=== PATIENT | female | born 1990 | race Caucasian/White ===

== ENCOUNTER 2021-04-26 20:44 | Emergency (ER) | payer BC, SELFPAY ==
[2021-04-26 20:44] VITALS: BP 131/70; PULSE 71; RESP 20; TEMP 36.8; O2SAT 98; BMI 42.0
[2021-04-26 22:16] LABS: Microscopic, Urine URINE MICROSCOPIC (MICROSCOPIC)
[2021-04-26 22:32] LABS: Chloride 100 mmol/L (98-107); Potassium 4.3 mmoL/L (3.5-5.1); Sodium 134 mmol/L (136-145)
[2021-04-26 22:37] LABS: Alanine Aminotransferase 31 U/L (12-78); Alkaline Phosphatase 64 U/L (38-126); Anion Gap 12.3 mEq/L (5-15); Aspartate Amino Transferase 43 U/L (14-36); Bilirubin,Total 0.6 mg/dl (0.2-1.3); Blood Urea Nitrogen 14 mg/dl (7-17); Calcium 8.2 mg/dl (8.4-10.2); Carbon Dioxide 26 mmol/L (22.0-30.0); Creatinine Clearance Estimated 115 mL/min (50-200); Estimated Glomerular Filt Rate 119 ml/min (>60); GFR (African American) 144 ML/MIN (>60); Glucose 87 mg/dl (74-100)
[2021-04-26 22:42] LABS: Albumin Level 4.1 g/dl (3.5-5.0); Albumin/Globulin Ratio 1.4 (1.1-1.8); Globulin 2.9 g/dL (1.3-3.2)
[2021-04-26 22:43] LABS: Basophils # 0.1 K/mm3 (0-0.2); Basophils % 1.9 % (0.1-2.0); Eosinophils # 0.2 K/mm3 (0.0-0.4); Eosinophils % 3.8 % (0.1-12.0); Hematocrit 38.2 % (37.0-47.0); Hemoglobin 12.2 g/dL (12.2-16.2); Lymphocytes # 2.1 K/mm3 (0.7-4.5); Lymphocytes % 35.6 % (10-50); Mean Corpuscular HGB Conc 31.9 g/dL (31.8-35.4); Mean Corpuscular Hemoglobin 29.1 pg (27.0-31.2); Mean Corpuscular Volume 91.1 fl (81-99); Mean Platelet Volume 8.4 fl (7.4-10.4); Monocytes # 0.2 K/mm3 (0.1-1.0); Monocytes % 4.1 % (1.7-9.3); Neutrophils # 3.2 K/mm3 (1.8-7.8); Neutrophils % 54.6 % (37.0-80.0); Platelet Count 234 K/mm3 (142-424); Red Blood Count 4.19 M/mm3 (4.20-5.40); Red Cell Distribution Width 13.6 % (11.5-17.5); White Blood Count 5.9 K/mm3 (4.8-10.8)
[2021-04-26 22:52] LABS: Appearance,Urine CLEAR (Clear); Bilirubin,Urine Negative (Negative); Blood, Urine 1+ (Negative); Color,Urine YELLOW (Yellow); Glucose,Urine (UA) Negative (Negative); Ketones,Urine TRACE (Negative); Leukocyte Esterase,Urine Negative (Negative); Nitrate,Urine Negative (Negative); Protein,Urine Negative (Negative); Specific Gravity, Urine 1.025 (1.005-1.030); Urobilinogen,Urine 0.2 EU/dl (0.2)
[2021-04-26 22:55] LABS: Urine Pregnancy, HCG Qual. Negative (Negative)
[2021-04-26 23:20] LABS: Bacteria,Urine 1+ /lpf; Mucus,Urine 1+ /lpf
--- NOTE | 2021-04-27 00:06 | HMH.EDWEAK ---
ED Disposition Clinical Impression: Weakness Disposition: Home, Self-Care Condition on Discharge: Good Instructions: DI for Muscle Weakness Additional Instructions: fluids and see pcp for follow up Referrals: Lashon Pelletier [Primary Care Provider] - - Critical Care Critical Care Time: No Attestation: On 04/26/21, the high probability of a clinically significant, sudden or life threatening deterioration of the following system(s) required my full and direct attention, intervention and personal management. The time I documented below is in addition to time spent performing reported procedures but includes the following listed in this critical care notation. Medical Decision Making - Medical Records Medical records reviewed: Yes: I reviewed the patient's medical records. - Regulo Inquiry Pt receiving controlled substance: No Vital Signs: 04/26/21 20:44 Temperature 98.2 F Temperature Source Oral Pulse Rate [Apical] 71 Respiratory Rate 20 Blood Pressure [Right Arm] 131/70 Blood Pressure Mean [Right Arm] 90 Blood Pressure Source [Right Arm] Automatic Cuff Blood Pressure Position [Right Arm] Sitting 02 Sat by Pulse Oximetry 98 Oxygen Delivery Method Room Air - Lab Data Lab Results 04/26/21 21:30: Urine Color Yellow, Urine Appearance Clear, Urine pH 6.0, Ur Specific [place] 1.025, Urine Protein Negative, Urine Glucose (UA) Negative, Urine Ketones Trace, Urine Blood 1+, Urine Nitrate Negative, Urine Bilirubin Negative, Urine Urobilinogen 0.2, Ur Leukocyte Esterase Negative, Urine WBC 3-5, Ur Squamous Epith Cells 3-5, Urine Bacteria 1+, Urine Mucus 1+ 04/26/21 21:30: Urine HCG, Qual Negative 04/26/21 21:30: Sodium 134 L, Potassium 4.3, Chloride 100, Carbon Dioxide 26, Anion Gap 12.3, BUN 14, Creatinine 0.60, Estimated Creat Clear 115, Estimated GFR 119, Est GFR ( Amer) 144, Glucose 87, Calcium 8.2 L, Total Bilirubin 0.6, AST 43 H, ALT 31, Alkaline Phosphatase 64, Total Protein 7.0, Albumin 4.1, Globulin 2.9, Albumin/Globulin Ratio 1.4 04/26/21 22:28: WBC 5.9, RBC 4.19 L, Hgb 12.2, Hct 38.2, MCV 91.1, MCH 29.1, MCHC 31.9, RDW 13.6, Plt Count 234, MPV 8.4, Neut % (Auto) 54.6, Lymph % (Auto) 35.6, [place] % (Auto) 4.1, Eos % (Auto) 3.8, Baso % (Auto) 1.9, Neut # (Auto) 3.2, Lymph # (Auto) 2.1, [place] # (Auto) 0.2, Eos # (Auto) 0.2, Baso # (Auto) 0.1 04/27/21 00:00: Magnesium 2.1 Result diagrams: 04/26/21 22:28 04/26/21 21:30 Orders (Tests/Meds): ED MEDICATIONS Generic Name Dose Route Start Last Admin Trade Name Freq PRN Reason Stop Dose Admin Sodium Chloride 1,000 mls @ 999 mls/hr 04/26/21 22:15 04/26/21 22:28 Sod Chlor 0.9% 1000ml Bag IV 04/26/21 23:15 999 mls/hr .Q1H1M AGGIE Administration ORDERS Category Date Time Status Rapid PCR Covid and Flu A/B Stat Lab 04/27/21 00:12 Ordered Medical Decision Narrative: stable exam and labs and will d/c to call surg and pcp for follow up Weakness HPI - General Chief complaint: Weakness Stated complaint: dehydration Time Seen by Provider: 04/27/21 00:06 Mode of Arrival: Ambulatory Source of Information: Patient, Medical Record Limitations: No Limitations Description of Symptoms (Recalled from ER Triage Doc. by RN): Patient states that she had a gastric sleeve surgery on Mar 17 2021 and has since been having issues with nausea. States over the last 5 days she hasn't been able to drink as much as she normally would due to nausea, and has noticed less, more concentrated urine. States that she has been feeling faint today which she feels like is due to her dehydration. Denies being currently nauseaus. - History of Present Illness HPI Narrative: recent gastric surg - wt loss surg and feels crampy and weak - with no diarrhea MD Complaint: generalized weakness Onset (ago): day(s) Duration: intermittent Location: generalized Migration: none Associated symptoms: denies other symptoms - Related Data Home Medications Medication Ins
[2021-04-27 00:28] LABS: Magnesium 2.1 mg/dl (1.6-2.3)
[2021-04-27 00:50] VITALS: BP 130/68; PULSE 70; RESP 20; TEMP 36.7; O2SAT 99
== END 2021-04-27 00:55 | disposition home or self-care (01) ==
PROVIDERS: Emergency Provider Emergency Medicine; PCP Nurse Practitioner Family
DX: E86.0 Dehydration (principal); F17.210 Nicotine dependence, cigarettes, uncomplicated
CPT/HCPCS: 80053; 81001; 81025; 83735; 85025; 96365; 99283

== ENCOUNTER 2024-08-05 19:06 | Emergency (ER) | payer OTHER, SELFPAY ==
[2024-08-05] VITALS (12 sets, daily range): BP systolic 118–136; BP diastolic 68–84; PULSE 74–104; RESP 11–23; TEMP 36.6–37.1; O2SAT 98–100; BMI 28.3
--- NOTE | 2024-08-05 19:07 | ECG_ITS ---
APPROVED REPORT Exam: Resting ECG HR:105 bpm ECG Measurements Heart Rate 105 AXES NH 131 P 57 QRSd 97 QRS 52 QT 350 T 28 QTc 411 Conclusion SINUS TACHYCARDIA No STEMI Electronically signed by : GIORGI LITTLEJOHN, 08/06/2024 00:05:17
--- OUTSIDE RECORDS SUMMARY | 2024-08-05 19:12 | XMS_ITS | Encounter Summary ---
Author Organization [employer] Address [address] [place] [id number] Care Team Providers Care Signals Intelligence Superintendent Name Role Phone Unavailable Primary Care Provider Unavailabl e Encounter Details Date Type Department Care Team (Late st Contact Info) Description 03/17/2021 Transcribed Document [facility] [place] [facility] [place] [address] ProviderCindi MD [address] [place] [address] Social History Tobacco Use Types Packs/Day Years Used Date Smoking Tobacco: Never Assessed Comments Unknown Sex and Gender Information Value Date Recorded Sex Assigned at Not on file Legal Sex Female 7:24 PM CDT Gender Identity Not on file Sexual Orientation Not on file documented as of this encounter Miscellaneous Notes * Cerner Conversion Note - Historical ProviderMD - 03/17/2021 11:15 AM NATIONAL SECRETARY Pain Assessment Entered On: 03/17/2021 19:35 EST Performed On: 03/17/2021 15:40 EST by Jewell Vega RN-PATIENT CARE BEDSIDE NON-EXEMPT Intervention Information: HYDROmorphone Performed by Jewell Vega RN-PATIENT CARE BEDSIDE NON-EXEMPT on 03/17/2021 15:10:00 EST HYDROmorphone,0.5mg IV Push,Right Hand,Pain (Severe 7-10) Pain Assessment Pain Assessment : Follow-up assessment Pain Scale Goal : 4 Pain Improved by Intervention : Yes Jewell Vega RN-PATIENT CARE BEDSIDE NON-EXEMPT - 03/17/2021 19:35 EST documented in this encounter Plan of Treatment Not on file documented as of this encounter Visit Diagnoses Not on filedocumented in this encounter
--- OUTSIDE RECORDS SUMMARY | 2024-08-05 19:12 | XMS_ITS | Encounter Summary ---
Author Organization [employer] Address [address] [place] [id number] Care Team Providers Care Engraver Seals Name Role Phone Unavailable Primary Care Provider Unavailabl e Encounter Details Date Type Department Care Team (Late st Contact Info) Description 03/17/2021 Transcribed Document [facility] Family Medicine [facility] [place] [address] ProviderCindi MD [facility] [place] [address] Social History Tobacco Use Types Packs/Day Years Used Date Smoking Tobacco: Never Assessed Comments Unknown Sex and Gender Information Value Date Recorded Sex Assigned at Not on file Legal Sex Female 7:24 PM CDT Gender Identity Not on file Sexual Orientation Not on file documented as of this encounter Miscellaneous Notes * Cerner Conversion Note - Historical ProviderMD - 03/17/2021 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 Name: KRISTIE MCGHEE/Sex: 1990 Female Med Rec #: [id number] Physician: JAYASHREE RIVERA MD-GEN Financial #: [id number] Pt. Type: I Room/Bed: [facility]/8 Admit/Disch: 03/17/21 04:55:00 - Institution: [facility] IntraOp Case Attendance Entry 1 Entry 2 Entry 3 Case Attendee JAYASHREE RIVERA MD-GEN ZARAK, ALBERTO, MD-GEN SIMPSON, KELSI A, NA Role Performed Surgeon/Proceduralist, Surgeon/Proceduralist, CHILDREN'S AUTHOR/Nurse Certified Diabetes Educator First Second Time In 03/17/21 07:32:00 03/17/21 07:32:00 03/17/21 07:32:00 Time Out 03/17/21 09:11:00 03/17/21 09:11:00 03/17/21 09:11:00 Procedure Gastrectomy Sleeve Gastrectomy Sleeve Gastrectomy Sleeve Laparoscopic, Hernia Laparoscopic, Hernia Laparoscopic, Hernia Repair Diaphragmatic Repair Diaphragmatic Repair Diaphragmatic Laparoscopic Laparoscopic Laparoscopic Other Attendee Superficial Wound Closed By: Last Modified By: NAKITA LIN RN WESSEL, JULIANA, NAKITA STANLEY, MARTÍN 03/17/21 09:11:44 03/17/21 09:11:44 03/17/21 09:11:44 Entry 4 Entry 5 Entry 6 Case Attendee NAKITA LIN, MARTÍN OTHER, ATTENDEE #1 Bryce Bourne Role Performed Pmo Lead, First Pmo Lead, Second Scrub, First Time In 03/17/21 07:32:00 03/17/21 07:32:00 03/17/21 07:32:00 Time Out 03/17/21 09:11:00 03/17/21 09:11:00 03/17/21 09:11:00 Procedure Gastrectomy Sleeve Gastrectomy Sleeve Gastrectomy Sleeve Laparoscopic, Hernia Laparoscopic, Hernia Laparoscopic, Hernia Repair Diaphragmatic Repair Diaphragmatic Repair Diaphragmatic Laparoscopic Laparoscopic Laparoscopic Other Attendee JOSETTE MONROY Superficial Wound Closed By: Last Modified By: NAKITA LIN RN WESSEL, JULIANA, NAKITA STANLEY RN 03/17/21 09:11:44 03/17/21 09:11:44 03/17/21 09:11:44 Entry 7 Entry 8 Entry 9 Case Attendee PAULA SAN, Eamon Baron, REP - Chiara Lawrence RN Wood Cabinetmaker Role Performed Scrub, Second Box Office Clerk, Ancillary Pmo Lead, Second Time In 03/17/21 07:32:00 03/17/21 07:32:00 03/17/21 08:45:00 Time Out 03/17/21 09:11:00 03/17/21 09:11:00 03/17/21 08:58:00 Procedure Gastrectomy Sleeve Gastrectomy Sleeve Gastrectomy Sleeve Laparoscopic, Hernia Laparoscopic, Hernia Laparoscopic, Hernia Repair Diaphragmatic Repair Diaphragmatic Repair Diaphragmatic Laparoscopic Laparoscopic Laparoscopic Other Attendee MARTÍN BREAUX Superficial Wound Closed By: Last Modified By: NAKITA LIN, NAKITA STANLEY, RN NAKITA LIN, MARTÍN 03/17/21 09:11:44 03/17/21 09:11:44 03/17/21 09:11:44 Entry 10 Case Attendee AKUA SINGER, CHILDREN'S AUTHOR-ANS Role Performed CHILDREN'S AUTHOR/Nurse Certified Diabetes Educator Time In 03/17/21 08:53:00 Time Out 03/17/21 09:11:00 Procedure Gastrectomy Sleeve Laparoscopic Other Attendee CHILDREN'S AUTHOR BREAK Superficial Wound Closed By: Last Modified By: NAKITA LIN, MARTÍN 03/17/21 09:12:07 [facility] IntraOp Case Attendance Audit 03/17/21 09:12:07 Admissions Supervisor: CORNELL Modifier: [email or web address] <+> 10 Procedure 03/17/21 09:11:44 Admissions Supervisor: CORNELL Modifier: [email or web address] 1 <+> Time Out 1 <*> Procedure Gastrectomy Sleeve Laparoscopic, Hernia Repair Diaphragmatic Laparoscopic 2 <+> Time Out 2 <*> Procedure Gastrectomy Sleeve Laparoscopic, Hernia Repair Diaphragmatic Laparoscopic 3 <+> Time Out 3 <*> Procedure Gastrectomy Sleeve Laparoscopic, Hernia Repair Diaphragmatic Laparoscopic 4 <+> Time Out 4 <*> Procedure Gastrectomy Sleeve Laparoscopic, Hernia Repair Diaphragmatic Laparoscopic 5 <+> Time Out 5 <*> Procedure Gastrectomy Sleeve Laparoscopic, Hernia Repair Diaphragmatic Laparoscopic 6 <+> Time Out 6 <*> Procedure Gastrectomy Sleeve Laparoscopic, Hernia Repair Diaphragmatic Laparoscopic 7 <+> Time Out 7 <*> Procedure Gastrectomy Sleeve Laparoscopic, Hernia Repair Diaphragmatic Laparoscopic 8 <+> Time Out 8 <*> Procedure Gastrectomy Sleeve Laparoscopic, Hernia Repair Diaphragmatic Laparoscopic 9 <*> Procedure Gastrectomy Sleeve Laparoscopic, Hernia Repair Diaphragmatic Laparoscopic <+> 10 Time Out 03/17/21 09:00:20 Admissions Supervisor: [email or web address] Modifier: [email or web address] <+> 9 Case Attendee <+> 9 Role Performed <+> 9 Time In <+> 9 Time Out <+> 9 Procedure <+> 9 Other Attendee <+> 10 Case Attendee <+> 10 Role Performed <+> 10 Time In <+> 10 Other Attendee 03/17/21 08:13:55 Admissions Supervisor: CORNELL Modifier: [email or web address] 1 <*> Procedure Gastrectomy Sleeve Laparoscopic 2 <+> Time In 2 <*> Procedure Gastrectomy Sleeve Laparoscopic 3 <+> Time In 3 <*> Procedure Gastrectomy Sleeve Laparoscopic 4 <+> Time In 4 <*> Procedure Gastrectomy Sleeve Laparoscopic 5 <+> Time In 5 <*> Procedure Gastrectomy Sleeve Laparoscopic 6 <+> Time In 6 <*> Procedure Gastrectomy Sleeve Laparoscopic 7 <+> Time In 7 <*> Procedure Gastrectomy Sleeve Laparoscopic 8 <+> Time In 8 <*> Procedure Gastrectomy Sleeve Laparoscopic [facility] IntraOp Case Times Entry 1 Patient In Room Time 03/17/21 07:32:00 Out Room Time 03/17/21 09:11:00 Anesthesia Start Time 03/17/21 07:32:00 Stop Time 03/17/21 09:11:00 Anesthesia Ready 03/17/21 07:32:00 Surgery / Procedure Times Start Time 03/17/21 07:52:00 Stop Time 03/17/21 09:00:00 Last Modified By: NAKITA LIN RN 03/17/21 09:11:37 [facility] IntraOp Case Times Audit 03/17/21 09:11:37 Admissions Supervisor: [email or web address] Modifier: [email or web address] <+> 1 Out Room Time <+> 1 Stop Time 03/17/21 09:00:23 Admissions Supervisor: [email or web address] Modifier: [email or web address] <+> 1 Stop Time 03/17/21 07:55:33 Admissions Supervisor: [email or web address] Modifier: [email or web address] <+> 1 Start Time [facility] IntraOp Cautery Entry 1 ESU Identification Cautery Type Monopolar ESU ID Number [id number] ID Type Hospital Number Cautery Settings Cut Setting 1 Coag Setting 30 ESU Grounding Pad Ground Pad Type Adult Grounding Pad Site Left thigh Grounding Pad NAKITA LIN RN Applied By Grounding Pad Site Warm, dry and intact Skin Condition Before Cautery Grounding Pad Site Unchanged Skin Condition After Cautery Last Modified By: NAKITA LIN RN 03/17/21 07:39:07 [facility] IntraOp Communication Entry 1 Communication To Family/Significant other Comment start Communication By NAKITA LIN RN Date and Time 03/17/21 07:54:00 Last Modified By: NAKITA LIN RN 03/17/21 07:55:44 [facility] IntraOp Counts Verification Entry 1 Procedure Gastrectomy Sleeve Laparoscopic, Hernia Repair Diaphragmatic Laparoscopic Count Info Count Type Sponge, Sharps, Instrument, Miscellaneous Counts Verification Baseline/pre-procedure Sequence Count Results Correct, surgeon notified Counts Performed By Count Performed By PAULA SAN, (Scrub) Wood Cabinetmaker Count Performed By NAKITA LIN RN (RN) Last Modified By: NAKITA LIN RN 03/17/21 08:13:56 [facility] IntraOp Counts Verification Audit 03/17/21 08:13:56 Admissions Supervisor: [email or web address] Modifier: [email or web address] 1 <*> Procedure Gastrectomy Sleeve Laparoscopic [facility] IntraOp Counts Final Entry 1 Procedure Gastrectomy Sleeve Laparoscopic, Hernia Repair Diaphragmatic Laparoscopic Final Count Info Count Type Sponge, Sharps, Miscellaneous Counts Verification Skin Closure/end of Sequence procedure Count Results Correct, surgeon notified Counts Performed By Count Performed By Bryce Bourne (Scrub) Count Performed By Chiara Quezada RN (RN) Last Modified By: NAKITA LIN RN 03/17/21 09:00:32 [facility] IntraOp Counts Final Audit 03/17/21 09:00:32 Admissions Supervisor: [email or web address] Modifier: [email or web address] 1 <*> Procedure Gastrectomy Sleeve Laparoscopic, Hernia Repair Diaphragmatic Laparoscopic 1 <+> Count Performed By (Scrub) 1 <*> Count Performed By (RN) NAKITA LIN RN 03/17/21 08:13:58 Admissions Supervisor: [email or web address] Modifier: [email or web address] 1 <*> Procedure Gastrectomy Sleeve Laparoscopic [facility] IntraOp Cultures and Spec Summary Entry 1 Cultrures and Specimens Specimen Ordered: Yes Test(s) Routine/Path-Lab Requested/Final Disposition Last Modified By: NAKITA LIN RN 03/17/21 07:39:58 [facility] IntraOp Delays Entry 1 Delay Reason Other Duration 2 Minute(s) Comment LOCATING RN FOR RN REPORT Last Modified By: NAKITA LIN RN 03/17/21 07:41:00 [facility] IntraOp Departure from OR Entry 1 Integumentary Assessment Integumentary WDL Assessment WDL Transfer/Handoff Transfer to PACU Phase I Handoff Method Bedside/Face to face Post-op Transport Bed (including Via specialty) Patient Transport NAKITA LIN RN, Accompanied by REX ESQUEDA NA Last Modified By: NAKITA LIN RN 03/17/21 07:40:03 [facility] IntraOp Dressing and Packing Entry 1 Type Dressing Location abdomen Wound Dressing Item 2x2's Applied By Bryce Bourne Other Comments 2 X 2 COVADERMS APPLIED TO TROCAR SITES Last Modified By: NAKITA LIN RN 03/17/21 07:40:08 [facility] IntraOp Fire Risk Assessment Entry 1 Fire Info Surgical Site or 0- No Incision Above the Xyphoid Open O2 Source 0- No (Mask or Cannula) Available Ignition 1- Yes (ESU, Laser, Light Source) Fire Risk 1 Assessment Score Fire Score Fire Risk Yes Assessment Complete Fire Risk NAKITA LIN RN Assessment Verified By Fire Risk 03/17/21 07:30:00 Assessment Verified Date/Time Fire Risk Standard Fire Yes Safety Precautions Followed Last Modified By: NAKITA LIN RN 03/17/21 07:40:13 [facility] IntraOp General Case Conditioning Machine Operator 1 Case Information OR OR 03 SJE Case Level 1 Room Verified Yes Wound Class 2 - Clean-Contaminated Specialty Bariatric Anesthesia Type General ASA Class 3 Diagnosis Preop Diagnosis MORBID OBESITY Postop Same As Preop Yes Postop Diagnosis MORBID OBESITY Wound Class Definitions Last Modified By: NAKITA LIN RN 03/17/21 07:41:22 [facility] IntraOp Implant Log Entry 1 Type Implant (Synthetic) Implant Log Implant Type Other Implant REINFORCE STPL SEAMGRD Identification FLEX [id number] Description Implant Quantity 5 Implant Site OPSITE Implant [id number] Identification Lot Number Implant [employer]:Med Prdt Identification Refrigeration Unit Repairer Name: Implant [id number] Identification Catalog Number Implant Has an Yes Expiration Date Implant Expiration 11/13/23 Date Tissue Implant Last Modified By: NAKITA LIN RN 03/17/21 08:34:23 [facility] IntraOp Implant Log Audit 03/17/21 08:34:23 Admissions Supervisor: JOSE [email or web address] Modifier: JOSE [email or web address] 1 <*> Implant Identification Description REINFORCE STPL SEAMGRD FLEX [id number] 1 <*> Implant Quantity 4 [facility] IntraOp Intraoperative Assessment Entry 1 Handoff Method Bedside/Face to face Valid History / Yes Physical in Chart Preoperative Yes Checklist Reviewed/Evaluated Allergies Reviewed Yes Patient is Latex No Sensitive Isolation Not applicable Precautions Noted Level of WDL Consciousness (WDL = Alert, Oriented to Person, Place, and Time) Skin Assessment Yes Verified Present Upon IVs Arrival to OR Last Modified By: NAKITA LIN RN 03/17/21 07:41:55 [facility] IntraOp Intraoperative Equipment Entry 1 Type Equipment Equipment Equipment CO2 Insufflator Intraop Monitoring Antiembolic Devices Antiembolic Devices Sequential compression device, knee high Antiembolic Device Bilateral Location Scopes Photo/Video Documentation Last Modified By: NAKITA LIN RN 03/17/21 07:41:59 [facility] IntraOp Medication Admin Entry 1 Medication/Irrigant Rohith Cocktail 0.8mL Clonidine / 25mL 0.5% Ropivicaine / 24.2mL 1% Lido with Epi - [id number] Route of LOCAL Administration Dose Dose 50 Unit of Measure ml Administered By JAYASHREE RIVERA MD-GEN Procedure Irrigation Last Modified By: NAKITA LIN RN 03/17/21 07:42:03 [facility] IntraOp Patient Positioning Entry 1 Procedure Gastrectomy Sleeve Laparoscopic, Hernia Repair Diaphragmatic Laparoscopic Body Position Supine Left Arm Position Secured on padded arm board Right Arm Position Secured on padded arm board Left Leg Position Uncrossed, parallel Right Leg Position Uncrossed, parallel Feet Uncrossed Yes Pressure Points Yes Checked Positioning Devices Arm Board, Foot Board, Safety Strap, Thighs, Safety Strap, Arm(s) Positioned By NAKITA LIN RN, REX ESQUEDA NA, JAYASHREE RIVERA MD-GEN Position Verified Positioning Yes Verified by Anesthesia Positioning Yes Verified by Surgeon Last Modified By: NAKITA LIN RN 03/17/21 08:13:57 [facility] IntraOp Patient Positioning Audit 03/17/21 08:13:57 Admissions Supervisor: [email or web address] Modifier: [email or web address] 1 <*> Procedure Gastrectomy Sleeve Laparoscopic [facility] IntraOp Sign In Entry 1 Patient, Site, Yes Procedure Identified Surgical Consent Yes Confirmed Relevant Surgical Yes Documents Available Surgical Site N/A Marked by person performing procedure Anesthesia Machine Yes Check Completed Medication Checks Yes Completed Allergies Yes Airway Difficult Yes Airway/Aspiration Risk Difficult Yes Airway/Aspiration Intervention Equipment Available Blood Loss Risk Yes Blood Loss Yes Intervention Equipment Prepared and Ready Blood Identifiers Not applicable Verified Per Policy Hypothermia Risk Yes Warming Measures Yes Taken Last Modified By: NAKITA LIN RN 03/17/21 07:42:13 [facility] Intra Op Sign Out Entry 1 RN Confirmation Surgical Yes Procedure(s) Identified Instrument, Sponge Yes and Sharps Counts Correct/Documented Equipment Problems N/A Documented Specimen Labeled Yes Correctly Urinary Catheter N/A Documented in IView Wound Yes classification reviewed, verified and updated post case in both the General Case Data and Procedure segments Colbert Patient Yes Recovery Concerns Reviewed with Anesthesia Provider, Surgeon and RN Colbert Patient Yes Management Concerns Reviewed with Anesthesia Provider, Surgeon and RN Safety Checklist Yes Elements Complete? RN Sign Out NAKITA LIN RN Signature RN Sign Out 03/17/21 09:11:00 Signature Date/Time Plan of Care Outcome - Fire Risk OUTCOME STATEMENT: Goal met Patient is free from injury related to surgical fire Plan of Care Outcome - Pt Positioning OUTCOME STATEMENT: Goal met Absence of signs and symptoms of positioning injury. Plan of Care Outcome - Skin Prep OUTCOME STATEMENT: Goal met Intraoperative care is consistent with measures to prevent infection Plan of Care Outcome - Xray/Images OUTCOME STATEMENT: Goal met Absence of observable signs or symptoms of radiation injury Plan of Care Outcome - Counts OUTCOME STATEMENT: Goal met Absence of signs and symptoms of injury related to extraneous objects Last Modified By: NAKITA LIN RN 03/17/21 09:11:44 [facility] Intra Op Sign Out Audit 03/17/21 09:11:44 Admissions Supervisor: CORNELL Modifier: [email or web address] <+> 1 RN Sign Out Signature Date/Time [facility] IntraOp Skin Prep Entry 1 Procedure Gastrectomy Sleeve Laparoscopic, Hernia Repair Diaphragmatic Laparoscopic Prescribed Yes Pre-Surgical Prep Completed Prep Area ABDOMEN Intraop Prep Integumentary WDL Assessment WDL Prep Agents Chloraprep Prep by NAKITA LIN RN Hair Removal Methods No hair removal performed Last Modified By: NAKITA LIN RN 03/17/21 08:13:57 [facility] IntraOp Skin Prep Audit 03/17/21 08:13:57 Admissions Supervisor: CORNELL Modifier: [email or web address] 1 <*> Procedure Gastrectomy Sleeve Laparoscopic [facility] IntraOp Surgical Procedures Entry 1 Entry 2 Procedure Gastrectomy Sleeve Hernia Repair Laparoscopic Diaphragmatic Laparoscopic Modifiers Additional LAPAROSCOPIC SLEEVE LAPAROSCOPIC HIATAL Procedure GASTRECTOMY HERNIA REPAIR Description Primary Procedure Yes No Primary Surgeon JAYASHREE RIVERA MD-GEN JAYASHREE RIVERA MD-GEN Start 03/17/21 07:52:00 03/17/21 07:52:00 Stop 03/17/21 09:00:00 03/17/21 09:00:00 Physician States Cecum Reached Anesthesia Type General General Specialty Bariatric General Wound Class 2 - Clean-Contaminated 1 - Clean Last Modified By: NAKITA LIN RN WESSEL, JULIANA, RN 03/17/21 09:11:38 03/17/21 09:11:38 [facility] IntraOp Surgical Procedures Audit 03/17/21 09:11:38 Admissions Supervisor: [email or web address] Modifier: [email or web address] <+> 1 Stop <+> 2 Stop 03/17/21 08:13:50 Admissions Supervisor: [email or web address] Modifier: [email or web address] <+> 1 Start <+> 2 Procedure <+> 2 Primary Procedure <+> 2 Primary Surgeon <+> 2 Specialty <+> 2 Start <+> 2 Wound Class <+> 2 Anesthesia Type <+> 2 Additional Procedure Description [facility] IntraOp Time Out Entry 1 Procedure to be Gastrectomy Sleeve Performed Laparoscopic, Hernia Repair Diaphragmatic Laparoscopic Time Out Time Out Pause Time 03/17/21 07:51:00 All activity Yes suspended (unless life threatening emergency) Team Verbally Correct patient Confirms Information identity, Consent form is present and accurate, Agreement on the procedure to be done, Correct patient position, Relevant images/results properly labeled/appropriately displayed, Confirm antibiotics have been administered, Confirm the skin prep has dried, Confirm prosthesis/implant/devic e is present, Performed in location of procedure after prepped/draped Antibiotic Yes Prophylaxis Administered Or In Progress Within the Last 60 Minutes Beta Eugene N/A Administered Venous Yes Thromboembolism Prophylaxis Required Anticipated Critical Events Surgeon Critical or unexpected steps, Special equipment need, Special instrumentation need Anesthesia Provider Patient specific concerns Nursing Assures Sterility of instruments, Implant Availability Essential Imaging N/A Labeled and Displayed Last Modified By: NAKITA LIN RN 03/17/21 08:13:57 [facility] IntraOp Time Out Audit 03/17/21 08:13:57 Admissions Supervisor: [email or web address] Modifier: CORNELL 1 <*> Procedure to be Performed Gastrectomy Sleeve Laparoscopic 03/17/21 07:55:53 Admissions Supervisor: CORNELL Modifier: CORNELL 1 <+> Time Out Pause Time 1 <*> Procedure to be Performed Gastrectomy Sleeve Laparoscopic Case Comments <None> Finalized By: NAKITA LIN RN Document Signatures Signed By: NAKITA LIN RN 03/17/21 09:12 Electronically signed by [facility]in [facility] Conversion Tube Knitter Cerner at 06/13/2022 12:46 PM CDT documented in this encounter Plan of Treatment Not on file documented as of this encounter Visit Diagnoses Not on filedocumented in this encounter
--- OUTSIDE RECORDS SUMMARY | 2024-08-05 19:12 | XMS_ITS | Encounter Summary ---
Author Organization [employer] Address [address] [place] [address] Care Team Providers Care Manager State Name Role Phone Unavailable Primary Care Provider Unavailabl e Encounter Details Date Type Department Care Team (Late st Contact Info) Description 11/14/2020 Transcribed Document [facility] [place] [address] [place] [address] ProviderCindi MD [address] [place] [address] Social History Tobacco Use Types Packs/Day Years Used Date Smoking Tobacco: Never Assessed Comments Unknown Sex and Gender Information Value Date Recorded Sex Assigned at Not on file Legal Sex Female 7:24 PM CDT Gender Identity Not on file Sexual Orientation Not on file documented as of this encounter Miscellaneous Notes * Cerner Conversion Note - Cindi ProviderMD - 11/14/2020 2:12 PM CDT Patient Education Materials Follows: ESOPHAGOGASTRODUODENOSCOPY Care After Read the instructions outlined below and refer to this sheet over the next few days. These discharge instructions provide you with general information on caring for yourself after you leave the hospital. Your doctor may also give you specific instructions. While your treatment has been planned according to the most current medical practices available, unavoidable complications occasionally occur. If you have any problems or questions after discharge, call your doctor. HOME CARE INSTRUCTIONS: ACTIVITY: ?? You may resume your regular activity tomorrow, but move at a slower pace for the next 24 hours. ?? Take frequent rest periods for the next 24 hours. ?? Walking will help get rid of the air and reduce the bloated feeling in your belly (abdomen). ?? No driving for 24 hours because of the medication (sedation) used during the test. ?? You may shower. ?? Do not sign any important legal documents or operate any machinery for 24 hours (because of the sedation used during the test). NUTRITION: ?? Drink plenty of fluids. ?? You may resume your normal diet or as instructed by your doctor ?? Begin with a light meal and progress to your normal diet. Heavy or fried foods are harder to digest and may make you feel sick to your stomach (nauseated). ?? Avoid alcoholic beverages for 24 hours or as instructed. MEDICATIONS: ?? You may resume your normal medications unless your doctor tells you otherwise. WHAT TO EXPECT TODAY: ?? Some feelings of bloating in the abdomen. ?? Excessive burping today and passage of more gas than usual. ?? A sore throat can be normal. Use throat lozenges or gargle with warm salt water and drink plenty of fluids. FINDING OUT THE RESULTS OF YOUR TEST: ?? Not all test results are available during your visit. If you had biopsies or other tests done during your procedure, you can make an appointment with your doctor to get the results. Sometimes you may be instructed to call the doctor's office for your results. It is important for you to follow up on all of your test results. SEEK IMMEDIATE MEDICAL CARE IF: ?? You cannot eat or drink. ?? You have worsening throat or chest pain. ?? You have dizziness, lightheadedness, or you faint. ?? You have severe nausea or vomiting. ?? You have a fever greater than 101. ?? You have chills. ?? You have severe abdominal pain or discomfort that gets worse throughout the day. ?? You have black, tarry, or bloody stools. Gastroenterology Hiatal Hernia A hiatal hernia occurs when part of the stomach slides above the muscle that separates the abdomen from the chest (diaphragm). A person can be born with a hiatal hernia (congenital), or it may develop over time. In almost all cases of hiatal hernia, only the top part of the stomach pushes through the diaphragm. Many people have a hiatal hernia with no symptoms. The larger the hernia, the more likely it is that you will have symptoms. In some cases, a hiatal hernia allows stomach acid to flow back into the tube that carries food from your mouth to your stomach (esophagus). This may cause heartburn symptoms. Severe heartburn symptoms may mean that you have developed a condition called gastroesophageal reflux disease (GERD). What are the causes? This condition is caused by a weakness in the opening (hiatus) where the esophagus passes through the diaphragm to attach to the upper part of the stomach. A person may be born with a weakness in the hiatus, or a weakness can develop over time. What increases the risk? This condition is more likely to develop in: ??? Older people. Age is a major risk factor for a hiatal hernia, especially if you are over the age of 50. ??? women. ??? People who are overweight. ??? People who have frequent constipation. What are the signs or symptoms? Symptoms of this condition usually develop in the form of GERD symptoms. Symptoms include: ??? Heartburn. ??? Belching. ??? Indigestion. ??? Trouble swallowing. ??? Coughing or wheezing. ??? Sore throat. ??? Hoarseness. ??? Chest pain. ??? Nausea and vomiting. How is this diagnosed? This condition may be diagnosed during testing for GERD. Tests that may be done include: ??? X-rays of your stomach or chest. ??? An upper gastrointestinal (GI) series. This is an X-ray exam of your GI tract that is taken after you swallow a chalky liquid that shows up clearly on the X-ray. ??? Endoscopy. This is a procedure to look into your stomach using a thin, flexible tube that has a tiny camera and light on the end of it. How is this treated? This condition may be treated by: ??? Dietary and lifestyle changes to help reduce GERD symptoms. ??? Medicines. These may include: ? Qsep-elv-sfvzgww antacids. ? Medicines that make your stomach empty more quickly. ? Medicines that block the production of stomach acid (H2 blockers). ? Stronger medicines to reduce stomach acid (proton pump inhibitors). ??? Surgery to repair the hernia, if other treatments are not helping. If you have no symptoms, you may not need treatment. Follow these instructions at home: Lifestyle and activity ??? Do not use any products that contain nicotine or tobacco, such as cigarettes and e-cigarettes. If you need help quitting, ask your health care provider. ??? Try to achieve and maintain a healthy body weight. ??? Avoid putting pressure on your abdomen. Anything that puts pressure on your abdomen increases the amount of acid that may be pushed up into your esophagus. ? Avoid bending over, especially after eating. ? Raise the head of your bed by putting blocks under the legs. This keeps your head and esophagus higher than your stomach. ? Do not wear tight clothing around your chest or stomach. ? Try not to strain when having a bowel movement, when urinating, or when lifting heavy objects. Eating and drinking ??? Avoid foods that can worsen GERD symptoms. These may include: ? Fatty foods, like fried foods. ? [place] fruits, like oranges or lemon. ? Other foods and drinks that contain acid, like orange juice or tomatoes. ? Spicy food. ? Chocolate. ??? Eat frequent small meals instead of three large meals a day. This helps prevent your stomach from getting too full. ? Eat slowly. ? Do not lie down right after eating. ? Do not eat 1?2 hours before bed. ??? Do not drink beverages with caffeine. These include cola, coffee, cocoa, and tea. ??? Do not drink alcohol. General instructions ??? Take mkxw-hpw-dwcrrrc and prescription medicines only as told by your health care provider. ??? Keep all follow-up visits as told by your health care provider. This is important. Contact a health care provider if: ??? Your symptoms are not controlled with medicines or lifestyle changes. ??? You are having trouble swallowing. ??? You have coughing or wheezing that will not go away. Get help right away if: ??? Your pain is getting worse. ??? Your pain spreads to your arms, neck, jaw, teeth, or back. ??? You have shortness of breath. ??? You sweat for no reason. ??? You feel sick to your stomach (nauseous) or you vomit. ??? You vomit blood. ??? You have bright red blood in your stools. ??? You have black, tarry stools. This information is not intended to replace advice given to you by your health care provider. Make sure you discuss any questions you have with your health care provider. Document Revised: 01/24/2018 Document Reviewed: 09/16/2017 [employer] Patient Education ? 2020 [employer] Pharmacology Monitored Anesthesia Care, Care After This sheet gives you information about how to care for yourself after your procedure. Your health care provider may also give you more specific instructions. If you have problems or questions, contact your health care provider. What can I expect after the procedure? After the procedure, it is common to have: ??? Tiredness. ??? Forgetfulness about what happened after the procedure. ??? Impaired judgment for important decisions. ??? Nausea or vomiting. ??? Some difficulty with balance. Follow these instructions at home: For at least 24 hours after the procedure: ??? Have a responsible adult stay with you. It is important to have someone help care for you until you are awake and alert. ??? Rest as needed. ??? Do not participate in activities in which you could fall or become injured. ??? Do not drive. ??? Do not use machinery. ??? Do not drink alcohol. ??? Do not take sleeping pills or medicines that cause drowsiness. ??? Do not make important decisions or sign legal documents. ??? Do not take care of children on your own. Eating and drinking ??? Follow the diet that is recommended by your health care provider. ??? Drink enough fluid to keep your urine pale yellow. ??? If you vomit: ? Drink water, juice, or soup when you can drink without vomiting. ? Make sure you have little or no nausea before eating solid foods. General instructions ??? Take fwlj-nai-ycjmhbx and prescription medicines only as told by your health care provider. ??? If you have sleep apnea, surgery and certain medicines can increase your risk for breathing problems. Follow instructions from your health care provider about wearing your sleep device: ? Anytime you are sleeping, including during daytime naps. ? While taking prescription pain medicines, sleeping medicines, or medicines that make you drowsy. ??? Avoid smoking. ??? Keep all follow-up visits as told by your health care provider. This is important. Contact a health care provider if: ??? You keep feeling nauseous or you keep vomiting. ??? You feel light-headed. ??? You are still sleepy or having trouble with balance after 24 hours. ??? You develop a rash. ??? You have a fever. ??? You have redness or swelling around the IV site. Get help right away if: ??? You have trouble breathing. ??? You have new-onset confusion at home. Summary ??? For several hours after your procedure, you may feel tired. You may also be forgetful and have poor judgment. ??? Have a responsible adult stay with you for at least 24 hours or until you are awake and alert. ??? Rest as told. Do not drive or operate machinery. Do not drink alcohol or take sleeping pills. ??? Get help right away if you have trouble breathing, or if you suddenly become confused. This information is not intended to replace advice given to you by your health care provider. Make sure you discuss any questions you have with your health care provider. Document Revised: 01/14/2020 Document Reviewed: 01/14/2020 [employer] Patient Education ? 2020 [employer]. documented in this encounter Plan of Treatment Not on file documented as of this encounter Visit Diagnoses Not on filedocumented in this encounter
--- OUTSIDE RECORDS SUMMARY | 2024-08-05 19:12 | XMS_ITS | Encounter Summary ---
Author Organization [employer] Address [address] [place] [address] Care Team Providers Care Mud Analysis Well Logging Operator Name Role Phone Unavailable Primary Care Provider Unavailabl e Encounter Details Date Type Department Care Team (Late st Contact Info) Description 03/18/2021 Transcribed Document [facility] [place] [facility] [place] [address] ProviderCindi MD [address] [place] [address] Social History Tobacco Use Types Packs/Day Years Used Date Smoking Tobacco: Never Assessed Comments Unknown Sex and Gender Information Value Date Recorded Sex Assigned at Not on file Legal Sex Female 7:24 PM CDT Gender Identity Not on file Sexual Orientation Not on file documented as of this encounter Miscellaneous Notes * Cerner Conversion Note - Cindi ProviderMD - 03/18/2021 8:56 AM NEONATAL CRITICAL CARE NURSE Initial Discharge Planning Entered On: 03/18/2021 8:58 EST Performed On: 03/18/2021 8:56 EST by Zahraa Lee Rn Initial Assessment I Previously Documented Living Environment : No qualifying data available. Living Situation : Home Patient Lives With : Adult Child/Children, Spouse Is the Patient a Caregiver at Home? : No Emergency Contact #1 : Garry Emergency Contact #1 Emergency Contact #1 Relationship : spouse Emergency Contact #2 : . Emergency Contact #2 Phone Number : .. Emergency Contact #2 Relationship : . Identified Medical Decision Maker : self Enter Doctors Name : Lashon Pelletier Does Patient have PCP Listed? : Yes Legal Guardian : No Is Guardianship Needed : No Zahraa Lee Rn - 03/18/2021 8:56 EST Initial Assessment II Sensory and Motor Deficits : None Current Home Treatments and Equipment : None Services and Community Resources : Other: NA Does the Patient have a Floor to SNF Benefit? : No Zahraa Lee Rn - 03/18/2021 8:56 EST Discharge Needs I Anticipated Discharge Date : 03/20/2021 EST Anticipated Discharge To, CM : Home with family care Current Home Treatment/Equipment : Current Home Treatment/Equipment No qualifying data available. Post Acute/Home Treatments : None Documentation Status Complete : Yes Zahraa Lee Rn - 03/18/2021 8:56 EST Discharge Needs II Professional Skilled Services : Professional Skilled Services No qualifying data available. Services and Community Resources : Other: NA Needs Assistance with Transportation : No Discharge Options Discussed with Patient : Other: CHART Patient Discharge Goal : Home Zahraa Lee Rn - 03/18/2021 8:56 EST Narrative Note Narrative Note : 30yo female patient admitted s/p gastric procedure., iADLs. lives with spouse who will transport at dc. no identified needs. INP LOW ELOS 2 days PLAN; patient will dc home in 1 day with no needs. CM will follow Zahraa Lee Rn - 03/18/2021 9:14 EST documented in this encounter Plan of Treatment Not on file documented as of this encounter Visit Diagnoses Not on filedocumented in this encounter
--- OUTSIDE RECORDS SUMMARY | 2024-08-05 19:12 | XMS_ITS | Encounter Summary ---
Author Organization [employer] Address [address] [place] [address] Care Team Providers Care Cream Ripener Name Role Phone Unavailable Primary Care Provider Unavailabl e Encounter Details Date Type Department Care Team (Late st Contact Info) Description 03/18/2021 Transcribed Document [facility] [place] [address] [place] [address] ProviderCindi MD [address] [place] [address] Social History Tobacco Use Types Packs/Day Years Used Date Smoking Tobacco: Never Assessed Comments Unknown Sex and Gender Information Value Date Recorded Sex Assigned at Not on file Legal Sex Female 7:24 PM CDT Gender Identity Not on file Sexual Orientation Not on file documented as of this encounter Miscellaneous Notes * Cerner Conversion Note - Historical ProviderMD - 03/18/2021 12:00 PM PATTERN FILER Pain Assessment Entered On: 03/18/2021 13:16 EST Performed On: 03/18/2021 12:42 EST by Jewell Vega RN-PATIENT CARE BEDSIDE NON-EXEMPT Intervention Information: ketorolac Performed by Jewell Vega RN-PATIENT CARE BEDSIDE NON-EXEMPT on 03/18/2021 12:12:00 EST ketorolac,15mg IV Push,Right Antecubit [place] Pain Assessment Pain Assessment : Follow-up assessment Pain Scale Goal : 4 Pain Radiation : No Pain Improved by Intervention : Yes Jewell Vega RN-PATIENT CARE BEDSIDE NON-EXEMPT - 03/18/2021 13:15 EST documented in this encounter Plan of Treatment Not on file documented as of this encounter Visit Diagnoses Not on filedocumented in this encounter
--- OUTSIDE RECORDS SUMMARY | 2024-08-05 19:12 | XMS_ITS | Encounter Summary ---
Author Organization [employer] Address [address] [place] [address] Care Team Providers Care Dye Blender Name Role Phone Unavailable Primary Care Provider Unavailabl e Encounter Details Date Type Department Care Team (Late st Contact Info) Description 03/19/2021 Transcribed Document [facility] [place] [address] [place] [address] ProviderCindi MD [address] [place] [address] Social History Tobacco Use Types Packs/Day Years Used Date Smoking Tobacco: Never Assessed Comments Unknown Sex and Gender Information Value Date Recorded Sex Assigned at Not on file Legal Sex Female 7:24 PM CDT Gender Identity Not on file Sexual Orientation Not on file documented as of this encounter Miscellaneous Notes * Cerner Conversion Note - Historical ProviderMD - 03/19/2021 5:00 AM INFORMATICS NURSE Chart Check - Review Order Profile Entered On: 03/19/2021 5:03 EST Performed On: 03/19/2021 5:00 EST by Risa Iqbal RN Chart Check Powerplans Initiated/Discontinued as Appropriate : Yes All Active Orders Reviewed : Yes Risa Iqbal RN - 03/19/2021 5:03 EST documented in this encounter Plan of Treatment Not on file documented as of this encounter Visit Diagnoses Not on filedocumented in this encounter
--- OUTSIDE RECORDS SUMMARY | 2024-08-05 19:12 | XMS_ITS | Encounter Summary ---
Author Organization [employer] Address [address] [place] [address] Care Team Providers Care Library Technology Instructor Name Role Phone Unavailable Primary Care Provider Unavailabl e Encounter Details Date Type Department Care Team (Late st Contact Info) Description 03/17/2021 Transcribed Document [facility] [place] [facility] [place] [address] ProviderCindi MD [address] [place] [address] Social History Tobacco Use Types Packs/Day Years Used Date Smoking Tobacco: Never Assessed Comments Unknown Sex and Gender Information Value Date Recorded Sex Assigned at Not on file Legal Sex Female 7:24 PM CDT Gender Identity Not on file Sexual Orientation Not on file documented as of this encounter Miscellaneous Notes * Cerner Conversion Note - Cindi ProviderMD - 03/17/2021 9:22 AM MEDICAL REIMBURSEMENT SPECIALIST Patient: SHERI MCGHEE Age: 30 Years Sex: Female : 1990 *Operation 1. Laparoscopic Hiatal Hernia Repair 2. Laparoscopic Sleeve Gastrectomy Indication for Surgery The patient is a 30 Years-old Female who presents with longstanding history of morbid obesity and associated comorbidities, and has tried multiple conservative therapies for losing weight that have all been unsuccessful. After discussing risks and benefits of bariatric surgery and reviewing the patient's medical history, the patient elected to proceed with laparoscopic sleeve gastrectomy with hiatal hernia repair. *Preoperative Diagnosis 1. Morbid obesity due to excess calories 2. GERD 3. Hiatal hernia 4. Anxiety 5. Joint pain *Postoperative Diagnosis 1. Morbid obesity due to excess calories 2. GERD 3. Hiatal hernia 4. Anxiety 5. Joint pain *Surgeon(s) Primary Surgeon JAYASHREE RIVERA MD-GEN (Surgeon/Proceduralist, First) assistant operations manager: Oracio Ibarra MD *Procedure Narrative The patient was brought to the operating room, and placed on the operating table in supine position. General endotracheal anesthesia was induced. The abdomen was prepped and draped in the usual sterile fashion. A time-out was completed verifying correct patient, procedure prior to beginning this procedure. The abdominal cavity was accessed with a Veress needle at Zendejas's point, and insufflated up to 17 mmHg. The patient tolerated insufflation well. Then a supraumbilical 5 mm incision was made, and a 5mm Optiview trocar was used to enter the abdomen under direct laparoscopic vision. The laparoscope was inserted and the abdomen inspected. No injuries from initial trocar placement were noted. At this point, the Veress needle was removed. A 5 mm incision was made in the subxiphoid area to place the Jesús liver retractor. The left lobe of the liver was retracted. Additional trocars were then inserted in the following locations: 5 mm left subcostal trocar on the anterior axillary line, 5 mm left subcostal trocar at the midclavicular line, right upper quadrant 5 mm trocar at the anterior axillary line, and a 15 mm trocar at the midclavicular line. A small-moderate size hiatal hernia was identified. We proceed to dissect the hiatus circumferentially reducing the fundus of the stomach into the abdominal cavity. The greater omentum was dissected from the greater curvature of the stomach, using the LigaSure. This was dissected all the way to the fundus, releasing all adhesions, and visualizing the left katrina. Hemostasis was checked and ensured with the short gastric vessels. The 42 Iranian bougie was then placed down the esophagus into the stomach under direct visualization. After the bougie was in place in the antrum, the stomach was stapled in a parallel manner to the greater curve, creating a sleeve gastrectomy. Green loads of the Hayes stapler were used with seam guard reinforcement from the antrum to the fundus, taking care not to narrow the incisura. The bougie was then removed, and the sleeve appeared uniform, with no corkscrew or narrowing. Then a posterior cruroplasty was performed with running non-absorbable V-loc suture. The staple line was then reinforced with a running reabsorbable Stratafix 2-0 from the proximal to the distal staple line, reattaching the greater omentum to the xochitl-greater curvature. The staple line was inspected, and full hemostasis was achieved. The Jesús liver retractor was removed. The 15 mm trocar site was dilated, and the Endo-Catch bag placed within the abdomen to retrieve the stomach specimen. The specimen was then passed off the field for pathology. The fascia of the 15 mm trocar site was closed in a fpszmy-rl-yncci fashion with #1 Vicryl using a Ryan Louis suture passer under direct laparoscopic vision. Pneumoperitoneum was released, and the remaining trocars were removed. The 15 mm trocar site where the stomach was retrieved was irrigated with sterile saline. All incisions were closed with skin maisha, and sterile dressings were placed. The patient tolerated the procedure well and was taken to the postanesthesia care unit in stable condition. All instrument and sponge counts were correct at the end of the procedure. Drains/Packs Used none Anesthesia general endotracheal *Estimated Blood Loss 5cc Urine Output no ortega *Findings moderate hiatal hernia *Specimen(s) greater curvature of stomach Complications none Date of Service Date/Time of Service SN - Proc - Start Time: 03/17/21 07:52:00 (03/17/21 08:13:50) SN - Proc - Start Time: 03/17/21 07:52:00 (03/17/21 08:13:50) documented in this encounter Plan of Treatment Not on file documented as of this encounter Visit Diagnoses Not on filedocumented in this encounter
--- OUTSIDE RECORDS SUMMARY | 2024-08-05 19:12 | XMS_ITS | Encounter Summary ---
Author Organization [employer] Address [address] [place] [address] Care Team Providers Care Credit Reference Clerk Name Role Phone Unavailable Primary Care Provider Unavailabl e Encounter Details Date Type Department Care Team (Late st Contact Info) Description 03/17/2021 Transcribed Document [facility] [place] Medicine [facility] [place] [address] ProviderCindi MD [address] [place] [address] Social History Tobacco Use Types [...] - Historical ProviderMD - 03/17/2021 7:52 AM SALESPERSON [employer] [facility] OR PACU Summary Primary Physician: JAYASHREE IRVERA MD-GEN Finalized Date/Time: 03/17/21 10:37:17 Pt. Name: SHERI MCGHEE/Sex: 1990 Female Med Rec #: [id number] Physician: JAYASHREE RIVERA MD-GEN Financial #: [id number] Pt. Type: I Room/Bed: 8/1 Admit/Disch: 03/17/21 04:55:00 - Institution: [facility] PACU Case Times Entry 1 In PACU I 03/17/21 09:14:00 Ready for PACU 03/17/21 09:50:00 Discharge Discharge from PACU 03/17/21 10:21:00 I Last Modified By: Mallory Miles RN 03/17/21 09:54:27 [facility] OR PACU Case Times Audit 03/17/21 10:20:06 Associate Professor Of Music: JASON Modifier: SUSANBREWER <+> 1 Discharge from PACU I 03/17/21 09:54:27 Associate Professor Of Music: JASON Modifier: SUSANBREWER <+> 1 Ready for PACU Discharge [facility] OR PACU Acuity Entry 1 Start Time 03/17/21 09:50:00 Stop Time 03/17/21 10:21:00 Acuity Level [facility] PACU Acuity I Last Modified By: Mallory Miles RN 03/17/21 09:54:20 [facility] OR PACU Acuity Audit 03/17/21 10:20:35 Associate Professor Of Music: JASON Modifier: SUSFER 1 <*> Stop Time 03/17/21 10:20:00 03/17/21 10:20:21 Associate Professor Of Music: JASON Modifier: SUSANBREWER <+> 1 Start Time <+> 1 Stop Time Finalized By: Mallory Miles, RN Document Signatures Signed By: Mallory Miles RN 03/17/21 10:37 Electronically signed by Navin [facility] Conversion Animal Rescuer Cerner at 06/13/2022 1:01 PM CDT documented in this encounter Plan of Treatment Not on file documented as of this encounter Visit Diagnoses Not on filedocumented in this encounter
--- OUTSIDE RECORDS SUMMARY | 2024-08-05 19:12 | XMS_ITS | Encounter Summary ---
Author Organization [employer] Address [address] [place] [address] Care Team Providers Care Soda Column Operator Name Role Phone Unavailable Primary Care Provider Unavailabl e Encounter Details Date Type Department Care Team (Late st Contact Info) Description 03/18/2021 Transcribed Document [facility] [place] Family Medicine [address] [place] [address] ProviderCindi MD [address] [place], [place] [id number] Social History Tobacco Use Types Packs/Day Years Used Date Smoking Tobacco: Never Assessed Comments Unknown Sex and Gender Information Value Date Recorded Sex Assigned at Not on file Legal Sex Female 7:24 PM CDT Gender Identity Not on file Sexual Orientation Not on file documented as of this encounter Miscellaneous Notes * Cerner Conversion Note - Historical ProviderMD - 03/18/2021 6:00 AM VENDING MACHINE HOST/HOSTESS Pain Assessment Entered On: 03/18/2021 8:58 EST Performed On: 03/18/2021 7:05 EST by Jewell Vega RN-PATIENT CARE BEDSIDE NON-EXEMPT Intervention Information: ketorolac Performed by Simona Arias RN on 03/18/2021 06:35:00 EST ketorolac,15mg IV Push,Peripheral Line 1 Pain Assessment Pain Assessment : Follow-up assessment Pain Scale Goal : 4 Pain Improved by Intervention : Yes Jewell Vega RN-PATIENT CARE BEDSIDE NON-EXEMPT - 03/18/2021 8:58 EST documented in this encounter Plan of Treatment Not on file documented as of this encounter Visit Diagnoses Not on filedocumented in this encounter
--- OUTSIDE RECORDS SUMMARY | 2024-08-05 19:12 | XMS_ITS | Encounter Summary ---
Author Organization [employer] Address [address] [place] [address] Care Team Providers Care Piping Drafter Name Role Phone Unavailable Primary Care Provider Unavailabl e Encounter Details Date Type Department Care Team (Late st Contact Info) Description 11/14/2020 Transcribed Document [facility] [place] Family Medicine [address] [place] [address] ProviderCindi MD [address] [place] [address] Social History Tobacco Use Types Packs/Day Years Used Date Smoking Tobacco: Never Assessed Comments Unknown Sex and Gender Information Value Date Recorded Sex Assigned at Not on file Legal Sex Female 7:24 PM CDT Gender Identity Not on file Sexual Orientation Not on file documented as of this encounter Miscellaneous Notes * Cerner Conversion Note - Historical ProviderMD - 11/14/2020 1:00 PM CDT [facility] PreOp Summary Primary Physician: JAYASHREE RIVERA MD Finalized Date/Time: 11/14/20 13:15:53 Pt. Name: SHERI MCGHEE/Sex: 1990 Female Med Rec #: [id number] Physician: JAYASHREE RIVERA MD Financial #: [id number] Pt. Type: E Room/Bed: /19 Admit/Disch: 11/14/20 11:56:00 - Institution: [facility] PreOp Case Times Entry 1 In Preop 11/14/20 12:50:00 Ready for Holding n/a Room Patient Ready for 11/14/20 13:15:00 Surgery Patient Out of Preop 11/14/20 13:15:00 Patient Out of n/a Holding Room Finalized By: Walker, Cheyenne M, Rn Document Signatures Signed By: Cheyenne Walker Rn 11/14/20 13:15 documented in this encounter Plan of Treatment Not on file documented as of this encounter Visit Diagnoses Not on filedocumented in this encounter
--- OUTSIDE RECORDS SUMMARY | 2024-08-05 19:12 | XMS_ITS | Encounter Summary ---
Author Organization [employer] Address [address] [place] [address] Care Team Providers Care Otr Flatbed Company Truck Driver Name Role Phone Unavailable Primary Care Provider Unavailabl e Encounter Details Date Type Department Care Team (Late st Contact Info) Description 03/19/2021 Transcribed Document [facility] [place] [facility] [place] [address] [place] [address] ProviderCindi MD [address] [place] [address] Social History Tobacco Use Types Packs/Day Years Used Date Smoking Tobacco: Never Assessed Comments Unknown Sex and Gender Information Value Date Recorded Sex Assigned at Not on file Legal Sex Female 7:24 PM CDT Gender Identity Not on file Sexual Orientation Not on file documented as of this encounter Miscellaneous Notes * Cerner Conversion Note - Historical ProviderMD - 03/19/2021 9:38 AM PUBLIC TRANSPORTATION INSPECTOR Patient: SHERI MCGHEE Age: 30 Years Sex: Female : 1990 Subjective Stayed overnight due to nausea and some dry heaves with drinking. Now resolved after taking off scopalamine patch- says her aunt had a similar reaction to scop patch. No n/v. Tolerating clears. Wants to go home. Pain controlled. Intake & Output Intake & Output Totals Last 24 Hours (7a-7a) Intake (34 Events) Continuous Infusions (3600 mL) Medications (2 mL) Oral Intake (1060 mL) Output (7 Events) Roque Catheter (600 mL) Urine Voided (Volume) (2125 mL) Input Total: 4662 mL Output Total: 2725 mL Balance: 1937 mL Vital Signs T: 37.1 ??C TMIN: 36.6 ??C TMAX: 37.1 ??C HR: 54(Monitored) RR: 18 BP: 128/83 SpO2: 98% Physical Exam Gen: NAD, on RA Resp: Nonlabored respirations CV: Normal peripheral perfusion Abd: soft, morbidly obese, ATTP, dressings c/d/i VTE Risk Total Score VTE Prophylaxis - Surgical Enoxaparin 40 mg, SubCutaneous, Inj, F10QVko, Routine, Start 03/18/21 6:30:00 EST, 03/17/21 11:15:00 EST (JAYASHREE RIVERA) Sequential Compression Device Start: 03/17/21 10:45:00 EST, Bilateral, Length: Knee High, Remove when ambulating, Continuous Order (JAYASHREE RIVERA) Sequential Compression Device Start: 03/17/21 10:45:00 EST, Bilateral, Length: Knee High, Replace when in bed, Continuous Order (JAYASHREE RIVERA) Assessment/Plan POD2 s/p sleeve gastrectomy- doing fairly well. Some nausea and dysphagia with drinking yesterday likely due to hiatal hernia repair- now resolved. - Continue pain control with oral meds - Encourage incentive spirometry and ambulation - Bariatric clears as tolerated. - D/c home today - f/u in bariatric clinic next week 1. Morbid obesity due to excess calories E66.01, Morbid (severe) obesity due to excess calories E66.01, Morbid (severe) obesity due to excess calories E66.01 Medications Inpatient Benadryl, 12.5 mg= 0.25 mL, IV Push, Q6H, PRN Dilaudid, 0.5 mg= 0.5 mL, IV Push, Q3H, PRN FLUoxetine, 20 mg= 1 Cap, Oral, At Bedtime hydrALAZINE, 10 mg= 0.5 mL, IV Push, Q6H, PRN Levsin SL, 0.125 mg= 1 Tab, SubLINgual, Q6H, PRN Lovenox, 40 mg= 0.4 mL, SubCutaneous, [id number] Mylicon, 80 mg= 1 Tab, Oral, Q4H, PRN NaCl 0.9% bolus, 500 mL, IV Piggyback, 1-Time, PRN [place] 7.5 mg-325 mg oral tablet, 2 Tab, Oral, Q4H, PRN [place] 7.5 mg-325 mg oral tablet, 1 Tab, Oral, Q4H, PRN Phenergan, 12.5 mg= 0.5 mL, IV Push, Q6H, PRN Protonix, 40 mg, IV Push, Daily ropivacaine 0.5% injectable solution 25 mL + EPINEPHrine-lidocaine 1:100,000-1% injectable solution Sodium Chloride 0.45% intravenous solution 1,000 mL, 1000 mL, IntraVENous Toradol, 15 mg= 0.5 mL, IV Push, Q6H Zofran, 4 mg= 2 mL, IV Push, Q4H, PRN Home FLUoxetine, 20 mg, Oral, At Bedtime oxyCODONE 5 mg oral tablet, 5 mg= 1 Tab, Oral, Q6H, PRN PriLOSEC 20 mg oral delayed release capsule, 20 mg= 1 Cap, Oral, Daily, 2 refills Zofran 4 mg oral tablet, 4 mg= 1 Tab, Oral, Q8H, PRN, 1 refills ZyrTEC 10 mg oral tablet, 10 mg, Oral, Daily Routine Labs - Last 24 Hours MAR 19 08:00 141 109 8 / 80 3.7 25 0.62 \ Anion Gap: 11 Calcium Level: 8.3 mg/dL Low Magnesium Level: 2.1 mg/dL Imaging Results (Last 24 Hours) No Radiology Results Found Problem List/Past Medical History Ongoing At risk for sleep apnea Migraines Seasonal allergies Historical No qualifying data Procedure/Surgical History Laparoscopic sleeve gastrectomy (03/17/2021), EGD - Esophagogastroduodenoscopy. Allergies cefdinir (Rash) documented in this encounter Plan of Treatment Not on file documented as of this encounter Visit Diagnoses Not on filedocumented in this encounter
--- OUTSIDE RECORDS SUMMARY | 2024-08-05 19:12 | XMS_ITS | Encounter Summary ---
Author Organization [employer] Address [address] [place] [address] Care Team Providers Care Repairer General Name Role Phone Unavailable Primary Care Provider Unavailabl e Encounter Details Date Type Department Care Team (Late st Contact Info) Description 03/23/2021 Transcribed Document [facility] [place] [facility] [place] [address] ProviderCindi MD [address] [place] [address] Social History Tobacco Use Types Packs/Day Years Used Date Smoking Tobacco: Never Assessed Comments Unknown Sex and Gender Information Value Date Recorded Sex Assigned at Not on file Legal Sex Female 7:24 PM CDT Gender Identity Not on file Sexual Orientation Not on file documented as of this encounter Miscellaneous Notes * Cerner Conversion Note - Cindi ProviderMD - 03/23/2021 10:01 AM PUBLIC HEALTH TRAINING ASSISTANT Outpatient Visit History Entered On: 03/23/2021 10:03 EST Performed On: 03/23/2021 10:01 EST by ADRIAN FLORES RN Vital Measurements Temperature Source : Temporal artery scanning Temperature, Fahrenheit : 97.0 Deg F Clinical Temperature, C : 36.1 Deg C Pulse Method : Pulse Oximetry Peripheral Pulse Rate : 73 bpm Pulse Rhythm : Regular Respiratory Rate : 17 Breaths/Min Blood Pressure Location : Arm, left lower Blood Pressure Source : Non-Invasive BP Device Blood Pressure Position : Sitting Systolic Blood Pressure : 140 mmHg Diastolic Blood Pressure : 86 mmHg Oxygen Saturation : 99 % Oxygen Therapy Mode : Room air ADRIAN FLORES RN - 03/23/2021 10:01 EST Height and Weight, Clinical Dosing Height Source : Stated Height Entry Format : [place]y Height, Feet : 5 ft(Converted to: 152 cm, 60 Inch) Height, Inches : 9 Inch(Converted to: 0 ft 9 Inch, 22.86 cm) Clinical Height : 175.26 cm Weight Source : Standing scale Weight Entry Format : [place] Clinical [facility] Weight : 115.45 kg Weight, Pounds : 254 lb Body Surface Area (BSA) : 2.29 m2 Body Mass Index : 37.6 kg/m2 (HI) Lissie Body Weight : 66 kg ADRIAN FLORES RN - 03/23/2021 10:01 EST Quick Look Assessment Level of Consciousness : Alert, Awake Affect/Behavior : Appropriate, Calm, Cooperative Orientation : Oriented x 4 Skin Temperature : Warm Skin Description : Normal for ethnicity ADRIAN FLORES RN - 03/23/2021 10:01 EST Health Histories Smoking Status : Never (less than 100 in lifetime; none in last 30 days) Smokeless Tobacco Status : Never ADRIAN FLORES RN - 03/23/2021 10:01 EST Social History (As Of: 03/23/2021 10:03:55 EST) Tobacco: Never (less than 100 in lifetime) Smoking Status. Never Smokeless Tobacco Status. (Last Updated: 02/27/2021 09:10:18 EST by Cheyenne Walker Rn) Alcohol: Alcohol Use History No. Alcohol Use Frequency Socially. (Last Updated: 02/27/2021 09:10:18 EST by Cheyenne Walker Rn) Substance Abuse: Drug Use Hx: No. (Last Updated: 02/27/2021 09:10:18 EST by Cheyenne Walker Rn) Infectious Disease History Does patient have symptoms of COVID-19? : No Has the Patient Been Tested for COVID-19 in the last 14 days? : Yes, Patient stated results Negative Where and When was COVID19 testing completed? : 03/14/2021 prior to procedure Does the Patient state known exposure to a COVID-19 positive case in the last 14 days? : No Patient Vaccinated for COVID-19 : Fully vaccinated ADRIAN FLORES RN - 03/23/2021 10:01 EST Infectious Disease Risk Screening Grid Cough < 2 wks of unknown origin : NO Cough > 2 weeks : NO Blood in Sputum : NO Fever or self-reported Fever : NO Rash of unknown origin : NO Headache : NO Stiff neck : NO Night Sweats : NO Unexplained Weight Loss : NO Diarrhea (3 episode per day) : NO FLORES, ADRIAN, RN - 03/23/2021 10:01 EST Physical contact outside [place] in the last 30 days : No Hospitalized in Foreign Country : No Infectious Disease History : Influenza, Meningitis, Other: Covid 02/2020 INF Disease TB Screening Calc : 0 INF Disease Recent Travel Calc : 0 ADRIAN FLORES RN - 03/23/2021 10:01 EST COVID19 PreProcedure Screening Is this an Emergent or Add on Procedure? : No Date PreProcedure COVID-19 test known? : No Has patient been isolated since the test : N/A - PreProcedure, in-person visit Exposed to COVID19 symptoms since test? : N/A - PreProcedure, in-person visit ADRIAN FLORES RN - 03/23/2021 10:01 EST Advance Directive Patient has Advance Directive *Q : No, patient refuses Advance Directive information ADRIAN FLORES RN - 03/23/2021 10:01 EST [place] Suicide Severity Rating Scale (C-SSRS) CSSRS Past Month Wish to be : No CSSRS Past Month Suicidal Thoughts : No CSSRS Lifetime Suicide Behavior : No Suicide Severity Rating Score : 0 Suicide Severity Rating : No Additional Care Required at this time ADRIAN FLORES RN - 03/23/2021 10:01 EST Psychosocial History Do You Have a History of the Following? : Anxiety, Depression Currently in Unsafe Situation : No ADRIAN LFORES RN - 03/23/2021 10:01 EST Fall Risk Scales ABCs Fall Injury Risk Identification : None DUONG Hx Falls Immediate/Within 3 Months : No Duong Secondary Diagnosis : Yes DUONG Use of Ambulatory Aid : None DUONG IV Therapy or IV Access : Yes Duong Gait/Transferring : Weak Duong Mental Status : Oriented to own ability Duong Fall Risk Score : 45 DUONG Fall Scale Risk Level : 25-45 Medium Risk [place] Fall Interventions : Adequate lighting, Call device within reach, Personal items within reach, Room free of clutter/spills, Wheels locked, Wires/Cords secured ADRIAN FLORES RN - 03/23/2021 10:01 EST Pain Assessment Pain Assessment : Initial assessment Intensity : 0 ADRIAN FLORES RN - 03/23/2021 10:01 EST Electronically signed by Navin, [facility] Conversion Land Surveyor Assistant Cerner at 06/13/2022 1:11 PM CDT documented in this encounter Plan of Treatment Not on file documented as of this encounter Visit Diagnoses Not on filedocumented in this encounter
--- OUTSIDE RECORDS SUMMARY | 2024-08-05 19:12 | XMS_ITS | Referral Summary ---
Author Organization [employer] Address [address] [place] [address] Care Team Providers Care Lithographic Proofer Name Role Phone Unavailable Primary Care Provider Unavailabl e Social History Tobacco Use Types Packs/Day Years Used Date Smoking Tobacco: Never Assessed Comments Unknown Sex and Gender Information Value Date Recorded Sex Assigned at Not on file Legal Sex Female 7:24 PM CDT Gender Identity Not on file Sexual Orientation Not on file Plan of Treatment Not on file
--- OUTSIDE RECORDS SUMMARY | 2024-08-05 19:12 | XMS_ITS | Encounter Summary ---
Author Organization [employer] Address [address] [place] [address] Care Team Providers Care Peeler Operator Name Role Phone Unavailable Primary Care Provider Unavailabl e Encounter Details Date Type Department Care Team (Late st Contact Info) Description 03/19/2021 Transcribed Document [facility] [place] [address] [place] [address] ProviderCindi MD [address] [place] [address] Social History Tobacco Use Types Packs/Day Years Used Date Smoking Tobacco: Never Assessed Comments Unknown Sex and Gender Information Value Date Recorded Sex Assigned at Not on file Legal Sex Female 7:24 PM CDT Gender Identity Not on file Sexual Orientation Not on file documented as of this encounter Miscellaneous Notes * Cerner Conversion Note - Historical ProviderMD - 03/19/2021 6:00 AM TRADE RECRUITER Patch Check Entered On: 03/19/2021 5:08 EST Performed On: 03/19/2021 6:00 EST by Risa Iqbal RN Patch Check Patch Check Result : No Action Taken : Other: pt removed and does not want patch replaced Patch Check - Type of Patch : scopolamine (Transderm-Scop) Risa Iqbal RN - 03/19/2021 5:08 EST documented in this encounter Plan of Treatment Not on file documented as of this encounter Visit Diagnoses Not on filedocumented in this encounter
--- OUTSIDE RECORDS SUMMARY | 2024-08-05 19:12 | XMS_ITS | Encounter Summary ---
Author Organization [employer] Address [address] [place] [id number] Care Team Providers Care Hygiene Assistant Name Role Phone Unavailable Primary Care Provider Unavailabl e Encounter Details Date Type Department Care Team (Late st Contact Info) Description 03/19/2021 Transcribed Document [facility] [place] Family Medicine [address] [place] [address] ProviderCindi MD [address] [place] [address] Social History Tobacco Use Types Packs/Day Years Used Date Smoking Tobacco: Never Assessed Comments Unknown Sex and Gender Information Value Date Recorded Sex Assigned at Not on file Legal Sex Female 7:24 PM CDT Gender Identity Not on file Sexual Orientation Not on file documented as of this encounter Miscellaneous Notes * Cerner Conversion Note - Cindi ProviderMD - 03/19/2021 10:05 AM COOK HELPER VEGETABLE [place] [phone] SHERI MCGHEE :1990 Visit Time:03/17/2021 Your Visit Summary Your Care Team Admitting Physician - JAYASHREE RIVERA MD- Attending Physician - JAYASHREE RIVERA MD-GEN Primary Care Physician - HOLLAND ANGLIN NP-KIRT Referring Physician - JAYASHREE RIVERA MD-GEN Your Diagnosis Morbid obesity due to excess calories, Morbid (severe) obesity due to excess calories, Morbid (severe) obesity due to excess calories These Are Your Goals To walk in the calabrese today and get rid of this gas pain. Patient Discharge Goal Patient Discharge Goal: Home Discharge Vitals Temperature 36.9 ??C Heart Rate (Monitored) 51 Respiratory Rate 18 Blood Pressure 135/91 What to do next Instructions From Your Care Team Please take all new medications as prescribed. Take omeprazole once daily with morning meal, this will help reduce the acidity of your stomach and mitigate symptoms and help prevent complications associated with your surgery. Ondansetron and oxycodone are for nausea and pain, respectively. Take both of these as directed. Please note that both of these medications can cause constipation if taken frequently so stay hydrated and you may use gentle OTC stool softeners (i.e. Colace) as needed. Discharge Follow Up Instructions: followup next weekCall for [id number] Follow Up Instructions: call office on saturday for followup appointment Activity: Discharge Activity: No heavy lifting over 10 lbs Diet: Warm liquids in the morning. May progress to full liquids and soft high protein foods as tolerated (Cottage cheese, chicken salad, eggs, etc). Make sure foods are wet . Drink 64 oz of fluids per day. Refer to Rohith-handbook., Discharge Diet: Other (see Special Instructions) Follow-Up Appointments Follow Up with JAYASHREE RIVERA When 04/17/2021 10:00 AM EST Comments Appointment has been made Follow Up with JAYASHREE RIVERA When 03/23/2021 08:45 AM EST Comments Appointment has been made Medications What How Much When Instructions Next Dose cetirizine (ZyrTEC 10 mg oral tablet) 10 Milligram(s) Oral Every Day as needed omeprazole (PriLOSEC 20 mg oral delayed release capsule) 1 Capsule(s) Oral Every Day Refills: 2 before a meal Pickup at [facility] ondansetron (Zofran 4 mg oral tablet) 1 Tablet(s) Oral Every 8 Hours as needed for Nausea Refills: 1 Pickup at [facility] oxyCODONE (oxyCODONE 5 mg oral tablet) 1 Tablet(s) Oral Every 6 Hours as needed for as needed for pain Duration: 5 Day(s) Pickup at [facility] FLUoxetine 20 Milligram(s) Oral At Bedtime Pharmacy Information [facility] Pharm: Harleen N Ketan Nunez [address] [place] [address] [phone] Take your medications faithfully. Do NOT skip medication. Do NOT stop taking medications without the direction of a physician. Carry a list of your medications with you at all times, and take this medication list with you to your first follow up visit. Report any side effects. Avoid herbal remedies unless discussed with your physician. As part of your treatment plan, your physician may have prescribed a limited course of a controlled substance. This medication may be given to help people with moderate or severe pain or for other medical conditions, but there are risks involved with treatment. Common side effects may include nausea, constipation, drowsiness, sweating, itching, dry mouth, and rash. More serious side effects may include cognitive and motor impairment, like problems with thinking, concentrating, alertness, and movement (e.g. slowed reflexes), and driving and operating heavy machinery can be dangerous. It is important for you to talk to your physician if you have these side effects or questions. These controlled substances can produce physical dependence and be habit-forming if taken for an extended period of time, which means that the body has gotten used to them and may experience withdrawal symptoms if they are abruptly stopped. Withdrawal symptoms can include runny nose, sweating, goose bumps, diarrhea, abdominal cramping, rapid heartbeat, difficulty sleeping, and nervousness. Please dispose of unused and medications per your retail pharmacy guidance. Allergies cefdinir (Rash) Immunizations This Visit No Immunizations Found Education Materials [facility] Dr. Oracio Montana PA-C - Office - Physician Exchange Discharge Instructions Use your patient handbook! DIET ??? Staying hydrated is your main goal! Be sure to drink at least 64 ounces of fluid/water every day. ??? Remember the importance of hot liquids at least twice a day to reduce mucus build up and nausea. ??? Begin using your protein supplements as soon as you get home. Work up to at least 60-80 grams of protein from your supplements. That???s about 3-4 supplements a day. ??? You may start your soft, high protein diet only when you are drinking 64 oz of fluid and getting close to your 60 grams of protein from your supplements. ??? Stick with only the foods in phase three of your handbook. These foods are soft, moist and high in protein. Aim for about 3 Tbsp or 1.5 oz per meal. Remember no drinking with food or the hour after. ??? Use the fluid and protein log in your patient handbook to track your intake. ACTIVITY ??? No lifting over 20 pounds within two weeks after surgery, or until the doctor recommends it. ??? No water exercise for two weeks. ??? Do not sit or stand for long periods of time. When you do sit, change positions frequently. ??? Do not drive until 1 week after surgery and until you are off all pain medication. ??? You may resume sexual relations when comfortable. ??? Continue to use the spirometer (breathing exercise) that you brought home at least 4 times a day for the first week. ??? Begin to walk 30 minutes each day. At first you may need to take two or three 10 to 15 minute walks. Gradually increase the distance you walk as you tolerate. MEDICINES ??? Take your medicines as we discussed at discharge. There may be some changes from what you were on before surgery. Fill prescriptions given at hospital and begin taking the omeprazole (or equivalent) daily. ??? Post???op vitamins will begin after your post-op appointment. ??? Take a dose of Milk of Magnesia each day that you are taking pain medication or until you have normal bowel movement. ??? Take 2 Extra Strength Tylenol (500mg each for a total of 1000mg) every 6 hours not to exceed 4 doses in 24 hours. Use pain medication prescription for breakthrough pain. DIABETES ??? If you are diabetic, check your glucose. Call the office if it is greater than 200 more than 3 times in 24-48 hours. WOUND CARE ??? You will be sent home with bandages over your incisions. You should remove all the bandages and shower over your wounds using antibacterial soap, such as Dial, the day after you return home. Do not re-cover your maisha. Pat dry after shower with a clean towel. If you have some wound drainage, it is still fine to shower. You may use a dressing or sanitary napkin to recover your drain site if needed. ??? Please notify CWLS of any drainage, type and amount, change in well-being: fever, increasing pain, inability to tolerate fluids or liquids. REMEMBER As you begin to use your body fat as fuel, you will become ketotic and therefore a bit nauseated. It is important that you continue your protein, even when you are not hungry or feel nauseated. When to Call Us ? If you have abdominal pain worse than you ever had in the hospital. ? If you have a temperature that is 101 degrees or more. ? If you have unusual swelling in one or both legs ? If you vomit and it looks different from what you just ate/drank. ? If you have increased redness or drainage from incision sites. ? If you have any other symptoms that concern you. Use your Patient Handbook! Many topics including nausea, vomiting, diarrhea, constipation, sleeplessness, headaches, and more are covered within this book. If you do not find an answer in your book, please call the Center at [phone] Emergency Awareness and Preventative Care STROKE is an EMERGENCY Every Minute Counts Act FAST and Check for these signs: FACE Does the face look uneven? ARM Does one arm drift down? SPEECH Does their speech sound strange? TIME Call at any sign of stroke Stroke Risk Factors Atrial Fibrillation (irregular heartbeat) Diabetes Family history of stroke Heart Disease Heavy alcohol use High Blood Pressure High Cholesterol Physical inactivity and obesity Smoking Cigarette Smoking The facts are clear, cigarette smoking will shorten your life. Smoking can cause many illnesses along the way. As a healthcare provider, we recommend that you stop smoking. Assistance with quitting is available by contacting 0-533-VHZT-NOW. This is a free resource providing counseling, support, and referral. Or you may contact your personal physician. National Suicide Prevention Lifeline: The National Suicide Prevention Lifeline is a national network of local crisis centers that provides free and confidential emotional support to people in suicidal crisis or emotional distress 24 hours a day, 7 days a week. Don't Wait! Stop a Heart Attack Before it Starts What is a heart attack? A heart attack is damage or to a part of the heart from severely decreased or lack of blood flow to the heart. Over time, arteries can become narrow from the buildup of fat and cholesterol, which is called plaque. The plaque can rupture causing a blood clot to form. When the blood clot forms, the artery can become severely narrowed or completely blocked, causing a heart attack. Heart attack is the leading cause of in the [place]. 85% of muscle damage occurs within the first 2 hours. Delay in the recognition of heart attack symptoms increases the chances of . Know the early symptoms of a heart attack: Nausea Feeling of fullness in chest Jaw Pain Pain that travels down one or both arms Fatigue/being tired Anxiety Back Pain Chest pressure, squeezing, or discomfort Shortness of breath Sweating, or a cold sweat Feeling of impending doom There are unusual signs of a heart attack, too! Women, the elderly, and diabetics may present with atypical symptoms: Fainting/dizziness Weakness Confusion Risk Factors for a Heart Attack Some heart disease risk factors, such as age and family history, cannot be changed. Others, like smoking and lack of exercise, can be changed. Smoking High Cholesterol High Blood Pressure Family History Obesity Age Gender (Males are at higher risk) Lack of Exercise Diabetes Diet Stress Excessive Alcohol Intake If you or someone you know is experiencing the signs and symptoms of a heart attack, DON???T DELAY. Call immediately and seek help. If someone collapses, perform CPR! Do not attempt to drive if you are having symptoms of heart attack. Hands-Only CPR Why Hands-Only CPR? Hands-Only CPR has been shown to be as effective as conventional CPR for cardiac arrests that occur outside of a hospital. Survival depends on immediately receiving CPR from someone nearby. How do you perform Hands-Only CPR? There are two easy steps: Call if you see a teen or adult collapse Push hard and fast in the center of the chest at a beat of 100 beats per minute. Save a life! 4 WAYS TO GET AHEAD OF SEPSIS SEPSIS is a MEDICAL EMERGENCY. Time matters! Infections put you and your family at risk for a life-threatening condition called sepsis. Sepsis is the body's extreme response to an infection. It is life-threatening, and without timely treatment, sepsis can rapidly lead to tissue damage, organ failure, and . Sepsis happens when an infection you already have-in your skin, lungs, urinary tract or somewhere else-triggers a chain reaction throughout your body. 1 PREVENT INFECTIONS Take good care of chronic conditions. Talk to your doctor about getting the recommended vaccines. 2 PRACTICE GOOD HYGIENE Wash your hands frequently. Keep cuts or open sores clean and covered until they are healed. 3 KNOW THE SYMPTOMS Confusion or disorientation Shortness of breath High heart rate Fever, shivering, or feeling very cold Extreme pain or discomfort Clammy or sweaty skin 4 ACT FAST Get medical care IMMEDIATELY if you suspect sepsis or if you have an infection that is not getting better or is getting worse. To learn more about sepsis and how to prevent infections, visit www.cdc.gov/sepsis. Test Results Laboratory or Other Results This Visit (last charted value for your 03/17/2021 visit) Hematology 03/19/2021 8:00 AM WBC: 7.4 K/uL -- Normal range between ( 3.9 and 10.0 ) RBC: 3.78 Million/uL -- Normal range between ( 3.93 and 5.22 ) Hct: 33.6 % -- Normal range between ( 34.1 and 44.9 ) Hgb: 10.9 Gram/dL -- Normal range between ( 11.2 and 15.7 ) Platelet Count: 223 K/uL -- Normal range between ( 163 and 369 ) MCH: 28.8 pg -- Normal range between ( 25.6 and 32.2 ) MCHC: 32.4 Gram/dL -- Normal range between ( 32.3 and 36.5 ) MCV: 88.9 fL -- Normal range between ( 79.0 and 94.8 ) Slide Review: No Eos %: 0.5 % -- Normal range between ( 1.0 and 7.0 ) Stutsman #: 0.52 K/uL -- Normal range between ( 0.24 and 0.82 ) Eos #: 0.04 K/uL -- Normal range between ( 0.04 and 0.54 ) Stutsman %: 7.0 % -- Normal range between ( 4.7 and 12.5 ) Baso %: 0.4 % -- Normal range between ( 0.0 and 1.0 ) Baso #: 0.03 K/uL -- Normal range between ( 0.01 and 0.08 ) RDW: 12.4 % -- Normal range between ( 11.6 and 14.4 ) Neut %: 67.1 % -- Normal range between ( 34.0 and 71.0 ) Neut #: 4.98 K/uL -- Normal range between ( 1.56 and 6.13 ) Lymph %: 24.7 % -- Normal range between ( 19.3 and 53.0 ) Lymph #: 1.83 K/uL -- Normal range between ( 1.18 and 3.74 ) MPV: 8.9 fL -- Normal range between ( 9.4 and 12.4 ) IG#: 0 x10(3)/uL IG%: 0 % -- Normal range between ( 0 and 1 ) Microbiology 03/14/2021 11:00 AM SARS-CoV-2 (COVID19 PCR): Negative General Chemistry 03/19/2021 8:00 AM Creatinine Level: 0.62 mg/dL -- Normal range between ( 0.55 and 1.02 ) Sodium Level: 141 mmol/L -- Normal range between ( 136 and 146 ) Potassium Level: 3.7 mmol/L -- Normal range between ( 3.5 and 5.1 ) Chloride Level: 109 mmol/L -- Normal range between ( 102 and 112 ) Carbon Dioxide Level: 25 mmol/L -- Normal range between ( 21 and 32 ) Anion Gap: 11 -- Normal range between ( 9 and 20 ) Bun/Creatinine: 12.9 -- Normal range between ( 8.0 and 20.0 ) Calcium Level: 8.3 mg/dL -- Normal range between ( 8.5 and 10.1 ) eGFR : >60 mL/min/1.73m2 eGFR NonAfrican: >60 mL/min/1.73m2 Glucose Level: 80 mg/dL -- Normal range between ( 74 and 106 ) Magnesium Level: 2.1 mg/dL -- Normal range between ( 1.5 and 2.4 ) Blood Urea Nitrogen: 8 mg/dL -- Normal range between ( 7 and 22 ) Endocrinology 03/17/2021 6:26 AM HCG Urine Qualitative: Negative Patient Name:MCGHEE SHERIDAVID SHETH I have received and understand this information and was given the opportunity to ask questions. Patient/Continuity Tester Name: Patient/Continuity Tester Signature: Relationship to Patient: Clinician/Hospital Continuity Tester Signature: Date: Electronically signed by Navin, [facility] Conversion Packaging Sales Representative Jos at 06/13/2022 12:52 PM CDT documented in this encounter Plan of Treatment Not on file documented as of this encounter Visit Diagnoses Not on filedocumented in this encounter
--- OUTSIDE RECORDS SUMMARY | 2024-08-05 19:12 | XMS_ITS | Encounter Summary ---
Author Organization [employer] Address [address] [place] [address] Care Team Providers Care Gas Turbine Mechanic Name Role Phone Unavailable Primary Care Provider Unavailabl e Encounter Details Date Type Department Care Team (Late st Contact Info) Description 03/17/2021 Transcribed Document [facility] [place] [facility] [place] [address] [place] [address] ProviderCindi MD [address] [place] [address] Social History Tobacco Use Types Packs/Day Years Used Date Smoking Tobacco: Never Assessed Comments Unknown Sex and Gender Information Value Date Recorded Sex Assigned at Not on file Legal Sex Female 7:24 PM CDT Gender Identity Not on file Sexual Orientation Not on file documented as of this encounter Miscellaneous Notes * Cerner Conversion Note - Cindi Padgett MD - 03/17/2021 10:52 AM GREETER GUEST [employer] Patient Education Materials Follows: [facility] Dr. Oracio [place], RUBIA-Esthela - Office - Physician Exchange Discharge Instructions Use your patient handbook! DIET ?? Staying hydrated is your main goal! Be sure to drink at least 64 ounces of fluid/water every day. ?? Remember the importance of hot liquids at least twice a day to reduce mucus build up and nausea. ?? Begin using your protein supplements as soon as you get home. Work up to at least 60-80 grams of protein from your supplements. That???s about 3-4 supplements a day. ?? You may start your soft, high protein diet only when you are drinking 64 oz of fluid and getting close to your 60 grams of protein from your supplements. ?? Stick with only the foods in phase three of your handbook. These foods are soft, moist and high in protein. Aim for about 3 Tbsp or 1.5 oz per meal. Remember no drinking with food or the hour after. ?? Use the fluid and protein log in your patient handbook to track your intake. ACTIVITY ?? No lifting over 20 pounds within two weeks after surgery, or until the doctor recommends it. ?? No water exercise for two weeks. ?? Do not sit or stand for long periods of time. When you do sit, change positions frequently. ?? Do not drive until 1 week after surgery and until you are off all pain medication. ?? You may resume sexual relations when comfortable. ?? Continue to use the spirometer (breathing exercise) that you brought home at least 4 times a day for the first week. ?? Begin to walk 30 minutes each day. At first you may need to take two or three 10 to 15 minute walks. Gradually increase the distance you walk as you tolerate. MEDICINES ?? Take your medicines as we discussed at discharge. There may be some changes from what you were on before surgery. Fill prescriptions given at hospital and begin taking the omeprazole (or equivalent) daily. ?? Post???op vitamins will begin after your post-op appointment. ?? Take a dose of Milk of Magnesia each day that you are taking pain medication or until you have normal bowel movement. ?? Take 2 Extra Strength Tylenol (500mg each for a total of 1000mg) every 6 hours not to exceed 4 doses in 24 hours. Use pain medication prescription for breakthrough pain. DIABETES ?? If you are diabetic, check your glucose. Call the office if it is greater than 200 more than 3 times in 24-48 hours. WOUND CARE ?? You will be sent home with bandages [...] to recover your drain site if needed. ?? Please notify [facility]LS of any drainage, type and amount, change in well-being: fever, increasing pain, inability to tolerate fluids or liquids. REMEMBER As you begin to use your body fat as fuel, you will become ketotic and therefore a bit nauseated. It is important that you continue your protein, even when you are not hungry or feel nauseated. When to Call Us ?? If you have abdominal pain worse than you ever had in the hospital. ?? If you have a temperature that is 101 degrees or more. ?? If you have unusual swelling in one or both legs ?? If you vomit and it looks different from what you just ate/drank. ?? If you have increased redness or drainage from incision sites. ?? If you have any other symptoms that concern you. Use your Patient Handbook! Many topics including nausea, vomiting, diarrhea, constipation, sleeplessness, headaches, and more are covered within this book. If you do not find an answer in your book, please call the Center at [phone] documented in this encounter Plan of Treatment Not on file documented as of this encounter Visit Diagnoses Not on filedocumented in this encounter
--- OUTSIDE RECORDS SUMMARY | 2024-08-05 19:12 | XMS_ITS | Encounter Summary ---
Author Organization [email or web address] Address [address] [place] [address] Care Team Providers Care Personnel Officer Name Role Phone Unavailable Primary Care Provider Unavailabl e Encounter Details Date Type Department Care Team (Late st Contact Info) Description 03/17/2021 Transcribed Document [facility] [place] [facility] [place] [address] ProviderCindi MD [address] [place] [address] Social History Tobacco Use Types Packs/Day Years Used Date Smoking Tobacco: Never Assessed Comments Unknown Sex and Gender Information Value Date Recorded Sex Assigned at Not on file Legal Sex Female 7:24 PM CDT Gender Identity Not on file Sexual Orientation Not on file documented as of this encounter Miscellaneous Notes * Cerner Conversion Note - Historical ProviderMD - 03/17/2021 6:00 PM OPERATIONS TEAM LEADER Pain Assessment Entered On: 03/18/2021 3:25 EST Performed On: 03/17/2021 19:08 EST by Risa Iqbal RN Intervention Information: ketorolac Performed by Jewell Vega RN-PATIENT CARE BEDSIDE NON-EXEMPT on 03/17/2021 18:38:00 EST ketorolac,15mg IV Push,Right Hand Pain Assessment Pain Assessment : Follow-up assessment Pain Scale Goal : 4 Pain Scale Used : 0-10 Scale Location : Abdominal Onset : Gradual Quality : Aching Pain Radiation : No Opioid Adverse Effects : Not applicable Risa Iqbal RN - 03/18/2021 3:24 EST Pain Scale Intensity : 4 Risa Iqbal RN - 03/18/2021 3:24 EST Image 4 - Images currently included in the form version of this document have not been included in the text rendition version of the form. Electronically signed by Navin, [facility] Conversion Director [employer] at 06/13/2022 12:54 PM CDT documented in this encounter Plan of Treatment Not on file documented as of this encounter Visit Diagnoses Not on filedocumented in this encounter
--- OUTSIDE RECORDS SUMMARY | 2024-08-05 19:12 | XMS_ITS | Encounter Summary ---
Author Organization [employer] Address [address] [place] [id number] Care Team Providers Care Union Carpenter Name Role Phone Unavailable Primary Care Provider Unavailabl e Encounter Details Date Type Department Care Team (Late st Contact Info) Description 03/19/2021 Transcribed Document [facility] [place] Family Medicine [address] [place] [address] ProviderCinid MD [address], [place] [id number] Social History Tobacco Use Types Packs/Day Years Used Date Smoking Tobacco: Never Assessed Comments Unknown Sex and Gender Information Value Date Recorded Sex Assigned at Not on file Legal Sex Female 7:24 PM CDT Gender Identity Not on file Sexual Orientation Not on file documented as of this encounter Miscellaneous Notes * Cerner Conversion Note - Historical ProviderMD - 03/19/2021 10:48 AM MEDICAL OFFICE PROFESSIONAL INSTRUCTOR Nursing Discharge Summary Entered On: 03/19/2021 10:48 EST Performed On: 03/19/2021 10:48 EST by Alexandria Zacarias RN Discharge Documentation Discharge Date/Time : 03/19/2021 10:44 EST Patient Disposition, General : Discharge Discharge To : Home with ambulatory/outpatient follow-up Mode Of Departure, General Discharge : Private vehicle, Wheelchair Accompanied By, Discharge : Care provider IV Discontinued : Yes Personal Belongings With Patient : Yes Medications Given to Patient : Yes Discharge Instructions Reviewed With, Opportunity For Questions Given : Patient Patient Education Completed : Yes Teaching Method : Explanation, Printed materials Teaching Evaluation : Verbalizes understanding Alexandria Zacarias RN - 03/19/2021 10:48 EST documented in this encounter Plan of Treatment Not on file documented as of this encounter Visit Diagnoses Not on filedocumented in this encounter
--- OUTSIDE RECORDS SUMMARY | 2024-08-05 19:12 | XMS_ITS | Encounter Summary ---
Author Organization [employer] Address [address] [place] [id number] Care Team Providers Care Transformer Molder Name Role Phone Unavailable Primary Care Provider Unavailabl e Encounter Details Date Type Department Care Team (Late st Contact Info) Description 11/14/2020 Transcribed Document [facility] [place] [address] [place] [address] ProviderCindi MD [address] [place] [address] Social History Tobacco Use Types Packs/Day Years Used Date Smoking Tobacco: Never Assessed Comments Unknown Sex and Gender Information Value Date Recorded Sex Assigned at Not on file Legal Sex Female 7:24 PM CDT Gender Identity Not on file Sexual Orientation Not on file documented as of this encounter Miscellaneous Notes * Cerner Conversion Note - Cindi ProviderMD - 11/14/2020 1:55 PM CDT [facility] PACU Summary Primary Physician: JAYASHREE RIVERA MD Finalized Date/Time: 11/14/20 14:21:20 Pt. Name: SHERI MCGHEE D.O.B./Sex: 1990 Female Med Rec #: [id number] Physician: JAYASHREE RIVERA MD Financial #: [id number] Pt. Type: E Room/Bed: [facility] Admit/Disch: 11/14/20 11:56:00 - Institution: [facility] PACU Case Times Entry 1 In PACU I 11/14/20 14:04:00 Ready for PACU 11/14/20 14:21:00 Discharge Discharge from PACU 11/14/20 14:21:00 I Finalized By: VICTOR M SHELTON, RN Document Signatures Signed By: VICTOR M SHELTON, RN 11/14/20 14:21 Electronically signed by Navin [facility] Conversion Rn Eligibility Cerner at 06/13/2022 12:57 PM CDT documented in this encounter Plan of Treatment Not on file documented as of this encounter Visit Diagnoses Not on filedocumented in this encounter
--- OUTSIDE RECORDS SUMMARY | 2024-08-05 19:12 | XMS_ITS | Data Portability ---
Author Organization [facility] Address [address] [place] [address] Assessment Encounter Date Assessment Date Assessment LastModified by Organization Details LastModified Time 05/13/2024 05/13/2024 1. Start effexor as prescribed. 2. Labs per plan below. 3. MHI packet provided. ADHD undiagnosed among differentials. Would consider psych provider evaluation should she screen + for ADHD. Also recommend psychotherapy. 4. Follow up in 1 month to recheck, sooner if needed Not available 05/14/2024 13:11:31 06/06/2024 06/06/2024 Patient presents with symptoms of UTI. Results of dipstick were positive for UTI. Advised to drink clear fluids, Tylenol for pain and take prescribed medications as instructed. Patient encouraged to follow up within 1 week if not improving. [email or web address] Not available 06/06/2024 11:37:19 06/29/2024 06/29/2024 Medication as prescribed. Increase oral fluids. Change toothbrush after 48 hours of antibiotic therapy. Follow up if no improvement or worsening and PRN. Not available 07/08/2024 09:19:13 Plan of Treatment Reminders Order Date Submit Date Provider Last Modified By Organization Details Last Modified Time Details Appointments None recorded. Lab rapid flu (A+B) [email or web address], [place], [address], 11:57:07 rapid SARS CoV 2 Ag, QL, IA, upper respiratory specimen 2024 025 [email or web address] [facility], [address] [place] [address], [address], 5 11:57:10 urinalysis, dipstick 2024 025 [email or web address], [address] [place] [address], [address], 5 11:40:10 culture, urine 2024 025 [facility] [address] [place], [address], 5 12:13:20 cobalamin and folate panel, serum 2024 025 JANEI [facility] ([place]), [address] [place], [address], 5 08:12:51 vitamin D, 25-hydroxy, total, serum 2024 025 [facility] [address] [place], [address], 5 08:12:52 CBC w/ auto diff 2024 025 [facility] [address] [place], [address], 5 08:12:49 CMP, serum or plasma 2024 025 [facility] [address] [place], [address], 5 08:12:50 TSH, ultra-sensi tive, serum 2024 025 [facility] [address] [place], [address], 5 08:12:53 lipid panel, serum 2024 025 [facility] [address] [place], [address], 5 08:12:50 Hepatitis C IgG Ab, qual, serum 2024 025 [facility] [address] [place], [address], 5 08:12:52 HbA1c (hemoglobin A1c), blood 2024 025 [facility] [address] [place], [address], 5 23:06:51 HIV 1 + 2, meaningful use set 2024 025 [facility] [address] [place], [address], 5 08:12:53 Referral None recorded. Procedures None recorded. Surgeries None recorded. Imaging None recorded. Medication Orders hydrocortis one 1 % topical cream 2024 025 [facility], [address] [place] [address], [address], 5 10:23:16 prednisone 20 mg tablet 2024 025 [facility], [address] [place] [address], [address], 5 10:23:14 azithromyci n 250 mg tablet 2024 025 [facility], [address] [place] [address], [address], 5 09:58:12 Bicillin L-A 1,200,000 unit/2 mL intramuscul ar syringe 2024 025 [email or web address] Not available 13:10:00 Bactrim DS 800 mg-160 mg tablet 2024 025 [facility], [address] [place] [address], [address], 16:35:37 Effexor XR 37.5 mg capsule,ext ended release 2024 025 [facility], [address] [place] [address], [address], 10:37:22 Patient TargetsNo targets recorded. Patient Instructions Encounter Date Encounter Id Patient Instructions Last Modified By Organization Details Last Modified Time 05/13/2024 [id number] mental health assessment* JANIE Not available 05/13/2024 14:11:48 MHI Packet Adult Not available 05/13/2024 13:27:23 HIV testing: car e instructions Not available 05/13/2024 13:17:33 Reason for Referral None Reported. Results Created Date Observation Date Name Description Value Unit Range Abnormal Flag Note LastModifiedBy Organization Detail LastModifiedTime 05/15/1905/15/2024 CBC WITH DIFFE RENTI AL/PL ATELE T WBC 5.7 x10e3 /uL 3.4-10 .8 normal Not Available [facility] ([facility]) [address] [place], [address], 05/15/2024 08:12:49 05/15/19 25 05/15/2024 CBC WITH DIFFE RENTI AL/PL ATELE T RBC 4.10 x10e6 /uL 3.77-5 .28 normal Not Available [facility] ([facility]) [address] [place], [address], 05/15/2024 08:12:49 05/15/19 25 05/15/2024 CBC WITH DIFFE RENTI AL/PL ATELE T hemoglobin 11.9 g/dL 11.1-1 5.9 normal Not Available [facility] ([facility]) [address] [place], [address], 05/15/2024 08:12:49 05/15/19 25 05/15/2024 CBC WITH DIFFE RENTI AL/PL ATELE T hematocrit 36.1 % 34.0-4 6.6 normal Not Available [facility] ([facility]) [address] [facility], [place], [address], 05/15/2024 08:12:49 05/15/19 25 05/15/2024 CBC WITH DIFFE RENTI AL/PL ATELE T MCV 88 fL 79-97 normal Not Available [facility] ([facility]) [address] [place], [address], 05/15/2024 08:12:49 05/15/19 25 05/15/2024 CBC WITH DIFFE RENTI AL/PL ATELE T MCH 29.0 pg 26.6-3 3.0 normal Not Available [facility] ([facility]) [address] [facility], [place], [address], 05/15/2024 08:12:49 05/15/19 25 05/15/2024 CBC WITH DIFFE RENTI AL/PL ATELE T MCHC 33.0 g/dL 31.5-3 5.7 normal Not Available [facility] ([facility]) [address] [place], [address], 05/15/2024 08:12:49 05/15/19 25 05/15/2024 CBC WITH DIFFE RENTI AL/PL ATELE T RDW 12.2 % 11.7-1 5.4 Not Available [facility] ([facility]) [address] [place], [address], 05/15/2024 08:12:49 05/15/19 25 05/15/2024 CBC WITH DIFFE RENTI AL/PL ATELE T platelets 266 x10e3 /uL 150-45 0 normal Not Available [facility] ([facility]) [address] [place], [address], 05/15/2024 08:12:49 05/15/19 25 05/15/2024 CBC WITH DIFFE RENTI AL/PL ATELE T neutrophils 66 % not estab. normal Not Available [facility] ([facility]) [address] [facility], [place], [address], 05/15/2024 08:12:49 05/15/19 25 05/15/2024 CBC WITH DIFFE RENTI AL/PL ATELE T lymphs 26 % not estab. normal Not Available [facility] ([facility]) [address] [place], [address], 05/15/2024 08:12:49 05/15/19 25 05/15/2024 CBC WITH DIFFE RENTI AL/PL ATELE T monocytes 5 % not estab. normal Not Available [facility] ([facility]) [address] [place], [address], 05/15/2024 08:12:49 05/15/19 25 05/15/2024 CBC WITH DIFFE RENTI AL/PL ATELE T eos 2 % not estab. normal Not Available [facility] ([facility]) [address] [facility], [place], [address], 05/15/2024 08:12:49 05/15/19 25 05/15/2024 CBC WITH DIFFE RENTI AL/PL ATELE T basos 1 % not estab. normal Not Available [facility] ([facility]) [address] [facility], [place], [address], 05/15/2024 08:12:49 05/15/19 25 05/15/2024 CBC WITH DIFFE RENTI AL/PL ATELE T immature cells [employer]ER Not Available [facility]) [address] [place], [address], 05/15/2024 08:12:49 05/15/19 25 05/15/2024 CBC WITH DIFFE RENTI AL/PL ATELE T neutrophils (absolute) 3.8 x10e3 /uL 1.4-7. 0 normal Not Available [facility] ([facility]) [address] [place], [address], 05/15/2024 08:12:49 05/15/19 25 05/15/2024 CBC WITH DIFFE RENTI AL/PL ATELE T lymphs (absolute) 1.5 x10e3 /uL 0.7-3. 1 normal Not Available [facility] ([facility]) [address] [place], [address], 05/15/2024 08:12:49 05/15/19 25 05/15/2024 CBC WITH DIFFE RENTI AL/PL ATELE T monocytes(ab solute) 0.3 x10e3 /uL 0.1-0. 9 normal Not Available [facility] ([facility]) [address] [place], [address], 05/15/2024 08:12:49 05/15/19 25 05/15/2024 CBC WITH DIFFE RENTI AL/PL ATELE T eos (absolute) 0.1 x10e3 /uL 0.0-0. 4 normal Not Available [facility] ([facility]) [address] [place], [address], 05/15/2024 08:12:49 05/15/19 25 05/15/2024 CBC WITH DIFFE RENTI AL/PL ATELE T baso (absolute) 0.0 x10e3 /uL 0.0-0. 2 normal Not Available [facility] ([facility]) [address] [place], [address], 05/15/2024 08:12:49 05/15/19 25 05/15/2024 CBC WITH DIFFE RENTI AL/PL ATELE T immature granulocytes 0 % not estab. Not Available [facility] ([facility]) [address] [place], [address], 05/15/2024 08:12:49 05/15/19 25 05/15/2024 CBC WITH DIFFE RENTI AL/PL ATELE T immature grans (abs) 0.0 x10e3 /uL 0.0-0. 1 Not Available [facility] ([facility]) [address] [facility], [place], [address], 05/15/2024 08:12:49 05/15/19 25 05/15/2024 CBC WITH DIFFE RENTI AL/PL ATELE T NRBC [employer] Not Available [facility] ([facility]) [address] [facility], [place], [address], 05/15/2024 08:12:49 05/15/19 25 05/15/2024 CBC WITH DIFFE RENTI AL/PL ATELE T hematology comments: [employer]INEER Not Available [facility] ([facility]) [address] [facility], [place], [address], 05/15/2024 08:12:49 05/15/19 25 05/15/2024 COMP. METAB OLIC PANEL (14) glucose 79 mg/dL 70-99 normal Not Available [facility] ([facility]) [address] [facility], [place], [address], 05/15/2024 08:12:50 05/15/19 25 05/15/2024 COMP. METAB OLIC PANEL (14) BUN 12 mg/dL 6-20 normal Not Available [facility] ([facility]) [address] [facility], [place], [address], 05/15/2024 08:12:50 05/15/19 25 05/15/2024 COMP. METAB OLIC PANEL (14) creatinine 0.80 mg/dL 0.57-1 .00 normal Not Available [facility] ([facility]) [address] [facility], [place], [address], 05/15/2024 08:12:50 05/15/19 25 05/15/2024 COMP. METAB OLIC PANEL (14) eGFR 101 mL/mi n/1.7 3 >59 normal Not Available [facility] ([facility]) [address] [facility] [place], [address], 05/15/2024 08:12:50 05/15/19 25 05/15/2024 COMP. METAB OLIC PANEL (14) BUN/creatini ne ratio 15 9-23 normal Not Available [facility] ([facility]) [address] [facility] [place], [address], 05/15/2024 08:12:50 05/15/19 25 05/15/2024 COMP. METAB OLIC PANEL (14) sodium 141 mmol/ L 134-14 4 normal Not Available [facility] ([facility]) [address] [facility], [place], [address], 05/15/2024 08:12:50 05/15/19 25 05/15/2024 COMP. METAB OLIC PANEL (14) potassium 3.4 mmol/ L 3.5-5. 2 below low normal Not Available [facility] ([facility]) [address] [facility] [place], [address], 05/15/2024 08:12:50 05/15/19 25 05/15/2024 COMP. METAB OLIC PANEL (14) chloride 102 mmol/ L 96-106 normal Not Available [facility] ([facility]) [address] [facility] [place], [address], 05/15/2024 08:12:50 05/15/19 25 05/15/2024 COMP. METAB OLIC PANEL (14) carbon dioxide, total 25 mmol/ L 20-29 normal Not Available [facility] ([facility]) [address] [facility] [place], [address], 05/15/2024 08:12:50 05/15/19 25 05/15/2024 COMP. METAB OLIC PANEL (14) calcium 8.9 mg/dL 8.7-10 .2 normal Not Available [facility] ([facility]) [address] [facility], [address], 05/15/2024 08:12:50 05/15/19 25 05/15/2024 COMP. METAB OLIC PANEL (14) protein, total 6.6 g/dL 6.0-8. 5 normal Not Available [facility] ([facility]) [address] [facility], [address], 05/15/2024 08:12:50 05/15/19 25 05/15/2024 COMP. METAB OLIC PANEL (14) albumin 4.3 g/dL 3.9-4. 9 normal Not Available [facility] ([facility]) [address] [facility] [place], [address], 05/15/2024 08:12:50 05/15/19 25 05/15/2024 COMP. METAB OLIC PANEL (14) globulin, total 2.3 g/dL 1.5-4. 5 Not Available [facility] ([facility]) [address] [place], [address], 05/15/2024 08:12:50 05/15/19 25 05/15/2024 COMP. METAB OLIC PANEL (14) bilirubin, total 0.5 mg/dL 0.0-1. 2 normal Not Available [facility] ([facility]) [address] [facility] [place], [address], 05/15/2024 08:12:50 05/15/19 25 05/15/2024 COMP. METAB OLIC PANEL (14) alkaline phosphatase 52 IU/L 44-121 normal Not Available [facility] ([facility]) [address] [facility] [place], [address], 05/15/2024 08:12:50 05/15/19 25 05/15/2024 COMP. METAB OLIC PANEL (14) AST (SGOT) 8 IU/L 0-40 normal Not Available [facility] ([facility]) [address] [facility] [place], [address], 05/15/2024 08:12:50 05/15/19 25 05/15/2024 COMP. METAB OLIC PANEL (14) ALT (SGPT) 7 IU/L 0-32 normal Not Available [facility] ([facility]) [address] [place], [address], 05/15/2024 08:12:50 05/15/19 25 05/15/2024 LIPID PANEL cholesterol, total 107 mg/dL 100-19 9 normal Not Available [facility] ([facility]) [address] [place], [address], 05/15/2024 08:12:50 05/15/19 25 05/15/2024 LIPID PANEL triglyceride s 52 mg/dL 0-149 normal Not Available [facility] ([facility]) [address] [place], [address], 05/15/2024 08:12:50 05/15/19 25 05/15/2024 LIPID PANEL HDL cholesterol 51 mg/dL >39 normal Not Available [facility]) [address] [place], [address], 05/15/2024 08:12:50 05/15/19 25 05/15/2024 LIPID PANEL VLDL cholesterol caesar 12 mg/dL 5-40 Not Available [facility] ([facility]) [address] [place], [address], 05/15/2024 08:12:50 05/15/19 25 05/15/2024 LIPID PANEL LDL chol calc ([facility]) 44 mg/dL 0-99 Not Available [facility] ([facility]) [address] [place], [address], 05/15/2024 08:12:50 05/15/19 25 05/15/2024 LIPID PANEL 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 Not Available [facility] ([facility]) [address] [facility], [place], [address], 05/15/2024 08:12:51 05/15/19 25 05/15/2024 HCV ANTIB AMY CASCA DE(PC R/GEN O) HCV Ab Non Reacti ve non reacti ve Not Available [facility] ([facility]) [address] [facility], [place], [address], 05/15/2024 08:12:51 05/15/19 25 05/15/2024 HCV ANTIB AMY CASCA DE(PC R/GEN O) interpretati on: Commen t Not infec eric with HCV unles s early or acute infec tion is suspe cted (whic h may be delay ed in an immun ocomp romis ed indiv idual ), or other evide nce exist s to indic ate HCV infec tion. Not Available [facility] ([facility]) [address] [facility], [place], [address], 05/15/2024 08:12:51 05/15/19 25 05/15/2024 VITAM IN D, 25-HY DROXY vitamin D, 25-hydroxy 28.3 NG/mL 30.0-1 00.0 below low normal Vitam in D defic iency has been defin ed by the Insti tute of Medic ine and an Endoc rine Socie ty pract ice guide line as a level of serum 25-OH vitam in D less than 20 ng/mL (1,2) . The Endoc rine Socie ty went on to furth er defin e vitam in D insuf ficie ncy as a level betwe en 21 and 29 ng/mL (2). 1. IOM (Inst itute of Medic ine). 2010. Dieta ry refer ence intak es for calci um and D. Patrick ramos [place]: The Natio [facility] Press . 2. Colby magana [place], Gamaliel oliveira [place], Todd off-F alphonse i HYMAN, et al. Evalu ation , treat ment, and preve ntion of vitam in D defic iency : an Endoc rine Socie ty clini caesar pract ice guide line. JCEM. 2010; 96(7) :1911 -30. Not Available [facility] ([facility]) [address] [facility], [place], [address], 05/15/2024 08:12:52 05/15/19 25 05/15/2024 HIV AB/P2 4 AG WITH REFLE X HIV Ab/P24 Ag screen Non Reacti ve non reacti ve HIV-1 /HIV- 2 antib odies and HIV-1 p24 antig en were NOT detec eric. There is no labor atory evide nce of HIV infec tion. HIV Negat bettina Not Available [facility] ([facility]) [address] [facility], [place], [address], 05/15/2024 08:12:53 05/15/19 25 05/15/2024 TSH RFX ON ABNOR MAL TO FREE T4 TSH 2.090 uIU/m L 0.450- 4.500 normal Not Available [facility] ([facility]) [address] [place], [address], 05/15/2024 08:12:53 05/15/19 25 05/15/2024 HEMOG LOBIN A1C hemoglobin A1C 5.1 % 4.8-5. 6 normal Predi abete s: 5.7 - 6.4 Diabe serenity: >6.4 Glyce quoc contr ol for adult s with diabe serenity: <7.0 Not Available [facility] ([facility]) [address] [facility], [place], [address], 05/15/2024 23:06:50 05/15/19 25 05/15/2024 TREV EN AUTHO RIZAT ION written authorizatio n Commen t Kvngitt en Autho rizat ion Recei vivian. Autho rizat ion recei vivian from TREV EN REQUE ST 05-15 Logge d by Bartolo romano Not Available [facility] ([facility]) [address] [facility], [place], [address], 05/15/2024 23:06:51 06/07/19 25 06/06/2024 urina lysis , dipst ick Leukocytes Small Not Available [address], [address], 06/06/2024 11:28:32 06/07/19 25 06/06/2024 urina lysis , dipst ick Nitrite negati ve Not Available [address], [address], 06/06/2024 11:28:32 06/07/19 25 06/06/2024 urina lysis , dipst ick Urobilinogen .2 Not Available [address], [address], 06/06/2024 11:28:32 06/07/19 25 06/06/2024 urina lysis , dipst ick Protein 30 Not Available [address], [address], 06/06/2024 11:28:32 04/12/20 25 06/06/2024 urina lysis , dipst ick pH 6.5 Not Available [address], [address], 06/06/2024 11:28:32 06/07/19 25 06/06/2024 urina lysis , dipst ick Blood Large Not Available [address], [address], 06/06/2024 11:28:32 06/07/19 25 06/06/2024 urina lysis , dipst ick Specific Ferris 1.030 Not Available [address], [address], 06/06/2024 11:28:32 06/07/19 25 06/06/2024 urina lysis , dipst ick Ketone Modera te Not Available [address], [address], 06/06/2024 11:28:32 06/07/19 25 06/06/2024 urina lysis , dipst ick Bilirubin Small Not Available [address], [address], 06/06/2024 11:28:32 06/07/19 25 06/06/2024 urina lysis , dipst ick Glucose Negati ve Not Available [address], [address], 06/06/2024 11:28:32 06/07/19 25 06/06/2024 urina lysis , dipst ick Appearance Clear Not Available [address], [address], 06/06/2024 11:28:32 06/07/19 25 06/06/2024 urina lysis , dipst ick Color Dark Yellow Not Available [address], [place], [address], 06/06/2024 11:28:32 06/09/19 25 06/11/2024 URINE CULTU RE, ROUTI NE urine culture, routine Final report abnormal Not Available [facility] ([facility]) [address] [facility], [place], [address], 06/11/2024 12:13:20 06/09/19 25 06/11/2024 URINE CULTU RE, ROUTI NE result 1 Escher ichia coli abnormal Cefaz misty with an QUOC <=16 predi cts susce ptibi lity to the oral agent s cefac sherri, cefdi maddison, cefpo doxim e, cefpr ozil, cefur oxime , cepha lexin , and lorac arbef when used for thera py of uncom plica eric urina ry tract infec tions due to E. coli, Klebs iella pneum oniae , and Prote us mirab ilis. Great er than 100,0 00 colon y formi ng units per mL Not Available [facility] ([facility]) [address] [facility], [place], [address], 06/11/2024 12:13:20 06/09/19 25 06/11/2024 URINE CULTU RE, ROUTI NE antimicrobia l susceptibili ty Commen t S = Susce ptibl e; I = Inter media te; R = Resis tant P = Posit bettina; N = Negat bettina MICS are expre ssed in micro grams per mL Antib iotic RSLT# 1 RSLT# 2 RSLT# 3 RSLT# 4 Amoxi cilli n/Cla vulan ic Acid S Ampic illin S Cefaz misty S Cefep joshua S Cefox itin S Cefpo doxim e S Ceftr iaxon e S Cipro floxa deonte S Ertap enem S Genta micin S Levof loxac in S Merop enem S Nitro furan toin S Piper acill in/Ta zobac long S Tetra cycli ne S Tobra mycin S Trime thopr im/Parks lfa S Not Available [facility] ([facility]) [address] [facility], [place], [address], 06/11/2024 12:13:20 06/27/19 25 06/26/2024 rapid SARS CoV 2 Ag, QL, IA, upper respi rator y speci men SARS CoV Ag negati ve Not Available [address], [address], 06/26/2024 11:40:25 06/27/19 25 06/26/2024 rapid flu (A+B) Flu A negati ve Not Available [address], [address], 06/26/2024 11:40:18 06/27/19 25 06/26/2024 rapid flu (A+B) Flu B negati ve Not Available [address], [address], 06/26/2024 11:40:18 Result Notes None recorded. Problems Name Problem SNOMED Code Status Onset Date Resolution Date Notes Provider Name and Address Organization Details Recorded Time Acute sinusiti s 49645575 Completed 202103/05/2022 [facility] 13:56:13 Cough 83592340 Completed 202103/05/2022 MATI caraballo, [facility] 13:56:14 Contact dermatit is 76841125 Completed 202304/30/2024 Danyelle Tuttle, EMILIA [address] [place] [address], [address] , [facility] 5 16:18:57 Acute laryngit is 3306683 Completed 202304/30/2024 Danyelle Tuttle NP [address] [place] [address], [address] , [place] [employer] 16:18:55 Viral syndrome 989881747 Completed 202304/30/2024 Danyelle Tuttle, EMILIA [address] [place] [address], [address] , [place] [employer] 16:19:02 Fever 481522477 Completed 202304/30/2024 Danyelle Tuttle NP [address] [place] [address], [address] , [place] [employer] 16:18:59 Allergic rhinitis 97054027 Active 2024 Danyelle Tuttle NP [address] [place] [address], [address] , [place] [employer] 16:25:25 Fatigue 49367460 Active 2024 Danyelle Tuttle NP [address] [place] [address], [address] , [place] [employer] 12:48:17 Epigastr ic pain 61811858 Active 2024 Danyelle Tuttle NP [address] [place] [address], [address] , [employer] 13:01:26 Unable to concentr ate 11777704 Active 2024 Danyelle Tuttle NP [address] [place] [address], [address] , [employer] 5 13:26:42 Streptoc occal sore throat 08353694 Active 2024 Danyelle Tuttle NP [address] [place] [address], [address] , [employer] 13:11:57 Acute otitis externa of right ear 26970360227 40493 Active 2024 Danyelle Tuttle NP [address] [place] [address], [address] , [place] [employer] 5 13:19:46 Candidia sis of mouth 10780999 Active 2024 Danyelle Tuttle NP [address] [place], [address] , [employer] 5 14:31:48 Severe acute respirat ory syndrome 677860421 Completed 202003/05/2022 Problem Code: B97.21; Problem Code Type: ICD-10; MATI MYGILDARDO null, [employer] 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 3 13:56:13 Disorder of endocrin e ovary 37020713 Completed 201701/14/2019 Problem Code: E28.9; Problem Code Type: ICD-10; Not Available [facility] 2 21:18:17 Tobacco dependen ce caused by cigarett es [id number] 178338 Active 2020 Problem Code: F17.210; Problem Code Type: ICD-10; Not Available [facility] 2 21:18:17 Major depressi on, single episode 69380592 Active 2018 Problem Code: F32.9; Problem Code Type: ICD-10; Not Available [facility] 2 21:18:17 Moderate recurren t major depressi on 86610836 Active 2018 Problem Code: F33.1; Problem Code Type: ICD-10; Not Available [facility] 2 21:18:17 Vitamin D deficien cy 08911538 Completed 201903/05/2022 Problem Code: E55.9; Problem Code Type: ICD-10; MATIALEKSANDRA HARRINGTON null, [employer] 3 13:56:13 Moderate recurren t major depressi on [id number] Completed 201810/17/2020 Problem Code: F33.1; Problem Code Type: ICD-10; Not Available [facility] 2 21:18:17 Generali zed anxiety disorder 97115622 Active 2020 Problem Code: F41.1; Problem Code Type: ICD-10; Not Available [facility] 2 21:18:17 Generali zed anxiety disorder 09039519 Completed 201711/11/2017 Problem Code: F41.1; Problem Code Type: ICD-10; Not Available [facility] 2 21:18:17 Impacted cerumen in right ear 13805158970 38134 Completed 201903/05/2022 Problem Code: H61.21; Problem Code Type: ICD-10; MATI caraballo, [employer] 3 13:56:13 Impacted cerumen of bilatera l ears [id number] 75499 Completed 201711/11/2017 Problem Code: H61.23; Problem Code Type: ICD-10; Not Available [facility] 2 21:18:18 Impacted cerumen in left ear 55889092429 16074 Completed 202103/05/2022 Problem Code: H61.22; Problem Code Type: ICD-10; MATI caraballo, [employer] 3 13:56:13 Acute suppurat bettina otitis media 032135129 Completed 201711/11/2017 Not Available [facility] 2 21:18:18 Hyperten sive disorder 50242477 Active 2019 Problem Code: I10; Problem Code Type: ICD-10; Not Available [facility] 2 21:18:18 Disorder of upper respirat ory system 315153707 Completed 202010/17/2020 Problem Code: J06.9; Problem Code Type: ICD-10; Not Available [facility] 2 21:18:18 Disorder of upper respirat ory system 218260756 Completed 202010/17/2020 Problem Code: J06.9; Problem Code Type: ICD-10; Not Available [facility] 2 21:18:18 Disorder of upper respirat ory system 762103284 Completed 201711/25/2017 Problem Code: J06.9; Problem Code Type: ICD-10; Not Available [facility] 2 21:18:18 Nicotine dependen ce 91852999 Completed 201903/05/2022 Problem Code: F17.200; Problem Code Type: ICD-10; MATI CASTORENANEAEmerson null, [employer] 3 13:56:14 Influenz a 9761030 Completed 202003/05/2022 Problem Code: J10.1; Problem Code Type: ICD-10; MATI CASTORENANEAR null, [employer] 3 13:56:14 Chronic mood disorder 51604797151 9108 Active 2021 Problem Code: F34.9; Problem Code Type: ICD-10; Not Available [facility] 2 21:18:19 Finding of frequenc y of menstrua tion 291626215 Completed 201711/25/2017 Not Available [facility] 2 21:18:19 Elevated blood-pr essure reading without diagnosi s of hyperten domingo 166080699 Completed 201709/11/2017 Not Available [facility] 2 21:18:19 Abnormal weight gain 268768574 Completed 201801/14/2019 Problem Code: R63.5; Problem Code Type: ICD-10; Lashon Pelletier APRN [address] [place], [address] , [employer] 5 12:00:14 General examinat ion of patient Active 2018 Not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 pharmacy), but she did not take it this week because she thought it may be contributing. She has lost weight (trying) recently with the ozempic, but still just does not feel good about herself in general.She has always had difficulty focusing and feels like it is worse lately.She is also having some issues with her - just feels they have grown apart. Danyelle Tuttle NP [address] [place], [address], [place]. 05/14/2024 13:11:56 06/06/2024 text/html Lower Urinary Tr act Symptoms (LUTS)Reported bypatient.Location:[facility] Quality:pressure; burning and frequency since this AM. Is currently on her period. Denies CVA pain and tenderness. Severity:moderate Duration:acute; < 1 week Context:excessive caffeine intake Aggravating Factors:caffeine Associated Symptoms:no abdominal pain; no groin pain; no pelvic pain; no flank pain; no low back pain; no chills; no fever; no constipation; no diarrhea; no vomiting;nausea;urge ncy;frequency;dysuri a Lashon Pelletier APRN [address] [place], [address], [place]. 06/06/2024 11:44:49 06/26/2024 text/html Sore ThroatRepor eric bypatient.Location:[facility] Onset/Timing:date of onset 2 days; sudden Duration:started 2 day(s) ago Quality:sharp;burnin g;pressure Severity:worsening;m oderate Context:no recent travel; no tick/insect bites; no new medications; no one else with similar symptoms; allergies Alleviating Factors:antihistamin es; NSAIDs Associated Symptoms:no dysphagia; no nausea; no vomiting; no itching throat; no choking; no globus sensation; no lethargy; no rash; no abdominal pain; no conjunctivitis; no drooling; no stridor; no dyspnea; no stiff neck;fever;cough;swo llen glands;appetite loss;headache;muffle d voice Lashon Pelletier APRN [address] [place], [address], [employer] 06/26/2024 12:45:15 06/29/2024 text/html Patient presents for evaluation of ongoing sore throat. She was diagnosed with strep pharyngitis and given a dose of PCN IM three days ago, but she is not feeling any better. States she is having difficulty swallowing d/t pain in her throat. Danyelle Tuttle NP [address] [place], [address], [place]. 07/08/2024 09:19:36 07/23/2024 text/html pt here today wi th c/o bilateral upper eye lids with redness, puffiness, flaking, burning and itching x3 days. pt states that she used some new self ray and then put makeup on top of that and that is the only new thing that has happened. pt states that she has put aquaphor on it, which hasnt helped. she hasnt worn her contacts and has cleaned her makeup brushes. states that there is no drainage. has not taken benadryl. on exam, pt bilateral upper eye lids are slightly swollen, red, scaly. does not look infected at this time. advised pt to take a benadryl nightly x2-3 nights (pt states that it makes her very sleepy), i will send in some steroids, hydorcortisone cream her insurance will cover and we have today. clean and keep eyes free of ray and makeup until clear. Venus Diop APRN [address] [place], [address], [place]. 07/23/2024 10:16:16 OBGyn Episode No OBEpisode recorded.
--- OUTSIDE RECORDS SUMMARY | 2024-08-05 19:12 | XMS_ITS | Encounter Summary ---
Author Organization [employer] [facility] [employer] Address [address] [place] [address] Care Team Providers Care Policy Officer Name Role Phone Unavailable Primary Care Provider Unavailabl e Encounter Details Date Type Department Care Team (Late st Contact Info) Description 03/17/2021 Transcribed Document [facility] [place] Family Medicine [facility] [place] [address] ProviderCindi MD [facility] [place] [address] Social History Tobacco Use Types Packs/Day Years Used Date Smoking Tobacco: Never Assessed Comments Unknown Sex and Gender Information Value Date Recorded Sex Assigned at Not on file Legal Sex Female 7:24 PM CDT Gender Identity Not on file Sexual Orientation Not on file documented as of this encounter Miscellaneous Notes * Cerner Conversion Note - Historical ProviderMD - 03/17/2021 4:55 AM ROLLER 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 Admission History, Adult Entered On: 03/17/2021 20:05 EST Performed On: 03/17/2021 10:35 EST by GAVINO ELIAS RN Advance Directive Patient has Advance Directive *Q : No, patient refuses Advance Directive information GAVINO ELIAS RN - 03/17/2021 20:03 EST Anesthesia/Transfusion History Family History of Anesthesia Reaction : No prior transfusion(s) Blood Transfusion Acceptable to Patient : Yes Transfusion History : Prior anesthesia without reaction Family History of Anesthesia Reaction : None GAVINO ELIAS RN - 03/17/2021 20:03 EST Anticipated Discharge Needs Discharge To, Anticipated : Home Anticipated Discharge Needs at This Time : None GAVINO ELIAS RN - 03/17/2021 20:03 EST Education Topics, Admission Orientation DCP GENERIC CODE Bed Control : Verbalizes understanding, Returns demonstration Call Light : Verbalizes understanding, Returns demonstration Diet/Room Service : Verbalizes understanding Rounding : Verbalizes understanding Siderails use/risks : Verbalizes understanding GAVINO ELIAS RN - 03/17/2021 20:03 EST Functional Assessment Living Situation : Home Patient Lives With : Adult Child/Children, Spouse Persons Assisting Patient at Home : Spouse Current Daily Living Assistance : None Sensory Deficits : None Mobility Assistance Prior to Admission : Independent DUONG Hx Falls Immediate/Within 3 Months : No Current Home Treatments : None Home Equipment : None GAVINO ELIAS RN - 03/17/2021 20:03 EST General Info Arrived From : Other: pacu Mode of Arrival on Unit : Stretcher Patient Arrival Date/Time : 03/17/2021 10:23 EST Legal Guardian : Spouse Want Family/Rep/Phys Notified of Admit : No Emergency Contact #1 : Garry Emergency Contact #1 Emergency Contact #1 Relationship : spouse Emergency Contact #2 : . Emergency Contact #2 Phone Number : .. Emergency Contact #2 Relationship : . Information Obtained From : Patient, Spouse Primary Language : Dominican Communication Barrier : None Ship'S Cook Needed : No GAVINO ELIAS RN - 03/17/2021 20:03 EST Fall Risk Scales ABCs Fall Injury Risk Identification : None DUONG Hx Falls Immediate/Within 3 Months : No Duong Secondary Diagnosis : No DUONG Use of Ambulatory Aid : None DUONG IV Therapy or IV Access : Yes Duong Gait/Transferring : Normal, bedrest, immobile Duong Mental Status : Oriented to own ability Duong Fall Risk Score : 20 DUONG Fall Scale Risk Level : 0-24 Low Risk [place] Fall Interventions : Adequate lighting, Bed in low position, Call device within reach, Hourly comfort/safety rounds, Non-slip footwear, Personal items within reach, Reinforced to call for assistance before getting out of bed, Room free of clutter/spills, Upper side-rails up, Wheels locked, Wires/Cords secured Barriers to Learning : None evident Learning Style Preferences Family : Printed materials, Verbal explanation Learning Style Preferences Patient : Printed materials, Verbal explanation GAVINO ELIAS RN - 03/17/2021 20:03 EST Health Histories Smoking Status : Never (less than 100 in lifetime; none in last 30 days) Smokeless Tobacco Status : Never GAVINO ELIAS RN - 03/17/2021 20:03 EST Social History (As Of: 03/17/2021 20:05:44 EST) Tobacco: Never (less than 100 in lifetime) Smoking Status. Never Smokeless Tobacco Status. (Last Updated: 02/27/2021 09:10:18 EST by Cheyenne Walker Rn) Alcohol: Alcohol Use History No. Alcohol Use Frequency Socially. (Last Updated: 02/27/2021 09:10:18 EST by Cheyenne Walker, Rn) Substance Abuse: Drug Use Hx: No. (Last Updated: 02/27/2021 09:10:18 EST by Cheyenne Walker Rn) Height and Weight, Clinical Dosing Height Source : Chart Height Entry Format : M Lite Solution Height, Feet : 5 ft(Converted to: 152 cm, 60 Inch) Height, Inches : 4 Inch(Converted to: 0 ft 4 Inch, 10.16 cm) Clinical Height : 162.56 cm Weight Source : Standing scale Weight Entry Format : M Lite Solution Clinical Dosing Weight : 123.64 kg Weight, Pounds : 272 lb Body Surface Area (BSA) : 2.23 m2 Body Mass Index : 46.8 kg/m2 (>HHI) [place] Body Weight : 54 kg GAVINO ELIAS RN - 03/17/2021 20:03 EST documented in this encounter Plan of Treatment Not on file documented as of this encounter Visit Diagnoses Not on filedocumented in this encounter
--- OUTSIDE RECORDS SUMMARY | 2024-08-05 19:12 | XMS_ITS | Encounter Summary ---
Author Organization [employer] Address [address] [place] [address] Care Team Providers Care Collection Card Clerk Name Role Phone Unavailable Primary Care Provider Unavailabl e Encounter Details Date Type Department Care Team (Late st Contact Info) Description 03/19/2021 Transcribed Document [facility] [place] Family Medicine [address] [place] [address] ProviderCindi MD [address] [place], [place] [id number] Social History Tobacco Use Types Packs/Day Years Used Date Smoking Tobacco: Never Assessed Comments Unknown Sex and Gender Information Value Date Recorded Sex Assigned at Not on file Legal Sex Female 7:24 PM CDT Gender Identity Not on file Sexual Orientation Not on file documented as of this encounter Miscellaneous Notes * Cerner Conversion Note - Historical ProviderMD - 03/19/2021 2:00 AM MACHINE PAN GREASER Consultative Sales Associate Details Entered On: 03/19/2021 5:03 EST Performed On: 03/19/2021 2:00 EST by Risa Iqbal RN Order Details Transport Mode Order Detail : Wheelchair Isolation Precautions Order Detail : Standard Precautions Order Detail : 0 IV Order Detail : 1 Oxygen Order Detail : 0 Nurse Collect Order Detail : 0 Lift/Transfer : Independent Central Line Order Detail : No Room Service : Not Appropriate Arterial Line : No Patient Needs Meds Crushed/Liquid : No Risa Iqbal RN - 03/19/2021 5:03 EST documented in this encounter Plan of Treatment Not on file documented as of this encounter Visit Diagnoses Not on filedocumented in this encounter
--- OUTSIDE RECORDS SUMMARY | 2024-08-05 19:12 | XMS_ITS | Encounter Summary ---
Author Organization [employer] Address [address] [place] [address] Care Team Providers Care Director Of Content And Programming Name Role Phone Unavailable Primary Care Provider Unavailabl e Encounter Details Date Type Department Care Team (Late st Contact Info) Description 03/17/2021 Transcribed Document [facility] [place] Family Medicine [address] [place] [address] ProviderCindi MD [address] [place] [address] Social History Tobacco Use Types Packs/Day Years Used Date Smoking Tobacco: Never Assessed Comments Unknown Sex and Gender Information Value Date Recorded Sex Assigned at Not on file Legal Sex Female 7:24 PM CDT Gender Identity Not on file Sexual Orientation Not on file documented as of this encounter Miscellaneous Notes * Cerner Conversion Note - Cindi ProviderMD - 03/17/2021 11:24 AM GIS COORDINATOR UM Authorization Entered On: 03/17/2021 11:24 EST Performed On: 03/17/2021 11:24 EST by NATHALIA GAMING RN-Utilization Review Primary Insurance Authorization Authorization and Policy Numbers : Insurance 1 Health Plan: [place] Medicaid Policy Number: [id number] Authorization Number: [id number] Insurance Primary Name : [place] Medicaid Policy Number: [id number] Authorization Status-Primary : Admit approved Reference Number-Primary : [id number] Authorization Number-Primary : [id number] Number of Days Authorized-Primary : 6 Day(s) Authorized Service Begin Date-Primary : 03/17/2021 EST Authorized Service End Date-Primary : 03/23/2021 EST Historical Authorization Comments-Primary : Comment 1: [place] Medicaid approved per Star note for inpt 7 days (SMITA BARRERA RN-Utilization Review 03/03/2021 11:22) NATHALIA GAMING RN-Utilization Review - 03/17/2021 11:24 EST documented in this encounter Plan of Treatment Not on file documented as of this encounter Visit Diagnoses Not on filedocumented in this encounter
--- OUTSIDE RECORDS SUMMARY | 2024-08-05 19:12 | XMS_ITS | Encounter Summary ---
Author Organization [employer] Address [address] [place] [address] Care Team Providers Care Entertainment Director Name Role Phone Unavailable Primary Care Provider Unavailabl e Encounter Details Date Type Department Care Team (Late st Contact Info) Description 03/17/2021 Transcribed Document [facility] [place] Family Medicine [address] [place] [address] ProviderCindi MD [address] [place] [address] Social History Tobacco Use Types Packs/Day Years Used Date Smoking Tobacco: Never Assessed Comments Unknown Sex and Gender Information Value Date Recorded Sex Assigned at Not on file Legal Sex Female 7:24 PM CDT Gender Identity Not on file Sexual Orientation Not on file documented as of this encounter Miscellaneous Notes * Cerner Conversion Note - Historical ProviderMD - 03/17/2021 12:00 PM FOOD SERVICE DRIVER Pain Assessment Entered On: 03/17/2021 13:56 EST Performed On: 03/17/2021 13:18 EST by Jewell Vega RN-PATIENT CARE BEDSIDE NON-EXEMPT Intervention Information: ketorolac Performed by Jewell Vega RN-PATIENT CARE BEDSIDE NON-EXEMPT on 03/17/2021 12:48:00 EST ketorolac,15mg IV Push,Right Hand Pain Assessment Pain Assessment : Follow-up assessment Pain Scale Goal : 4 Pain Improved by Intervention : Yes Jewell Vega RN-PATIENT CARE BEDSIDE NON-EXEMPT - 03/17/2021 13:55 EST documented in this encounter Plan of Treatment Not on file documented as of this encounter Visit Diagnoses Not on filedocumented in this encounter
--- OUTSIDE RECORDS SUMMARY | 2024-08-05 19:12 | XMS_ITS | Encounter Summary ---
Author Organization [employer] Address [address] [place] [address] Care Team Providers Care Flight Surgeon Name Role Phone Unavailable Primary Care Provider Unavailabl e Encounter Details Date Type Department Care Team (Late st Contact Info) Description 02/27/2021 Transcribed Document [facility] [place] [facility] [place] [address] ProviderCindi MD [address] [place] [address] Social History Tobacco Use Types Packs/Day Years Used Date Smoking Tobacco: Never Assessed Comments Unknown Sex and Gender Information Value Date Recorded Sex Assigned at Not on file Legal Sex Female 7:24 PM CDT Gender Identity Not on file Sexual Orientation Not on file documented as of this encounter Miscellaneous Notes * Cerner Conversion Note - Historical ProviderMD - 02/27/2021 9:12 AM MATRIX REPAIRER PAT Adult Entered On: 02/27/2021 9:14 EST Performed On: 02/27/2021 9:12 EST by Cheyenne Walker Rn Vital Measurements Temperature Source : Tympanic Temperature, Fahrenheit : 97.5 Deg F Clinical Temperature, C : 36.4 Deg C Pulse Rhythm : Regular Cheyenne Walker Rn - 02/27/2021 9:12 EST Height and Weight, Clinical Dosing Height Source : Chart Height Entry Format : [place] Height, Feet : 5 ft(Converted to: 152 cm, 60 Inch) Height, Inches : 4 Inch(Converted to: 0 ft 4 Inch, 10.16 cm) Clinical Height : 162.56 cm Weight Source : Standing scale Weight Entry Format : [place] Clinical Dosing Weight : 123.64 kg Weight, Pounds : 272 lb Body Surface Area (BSA) : 2.23 m2 Body Mass Index : 46.8 kg/m2 (>HHI) [place] Body Weight : 54 kg Cheyenne Walker Rn - 02/27/2021 12:04 EST Health Histories Smoking Status : Never (less than 100 in lifetime; none in last 30 days) Smokeless Tobacco Status : Never Cheyenne Walker Rn - 02/27/2021 9:12 EST Social History (As Of: 02/27/2021 09:14:59 EST) Tobacco: Never (less than 100 in [...] COVID-19 in the last 14 days? : PreProcedure/NON-PUI COVID-19 Testing Does the Patient state known exposure to a COVID-19 positive case in the last 14 days? : No Patient Vaccinated for COVID-19 : Fully vaccinated Cheyenne Walker Rn - 02/27/2021 9:12 EST Infectious Disease Risk Screening Grid Cough < 2 wks of unknown origin : NO Cough > 2 weeks : NO Blood in Sputum : NO Fever or self-reported Fever : NO Rash of unknown origin : NO Headache : NO Stiff neck : NO Night Sweats : NO Unexplained Weight Loss : NO Diarrhea (3 episode per day) : NO Cheyenne Walker Rn - 02/27/2021 9:12 EST Physical contact outside [place] in the last 30 days : No Hospitalized in Foreign Country : No Infectious Disease History : Meningitis, Other: Covid 02/2020 INF Disease TB Screening Calc : 0 INF Disease Recent Travel Calc : 0 Cheyenne Walker Rn - 02/27/2021 9:12 EST COVID19 PreProcedure Screening Is this an Emergent or Add on Procedure? : No Date PreProcedure COVID-19 test known? : No Has patient been isolated since the test : N/A - PreProcedure, in-person visit Exposed to COVID19 symptoms since test? : N/A - PreProcedure, in-person visit Cheyenne Walker Rn - 02/27/2021 9:12 EST Anesthesia/Transfusion History Family History of Anesthesia Reaction : No prior transfusion(s) Transfusion History : Prior anesthesia without reaction Family History of Anesthesia Reaction : None Cheyenne Walker Rn - 02/27/2021 9:12 EST Functional Assessment Functional ADL Evaluation Index EBN Bathing : Independent (2) Dressing : Independent (2) Toileting : Independent (2) Transferring Bed or Chair : Independent (2) Continence : Independent (2) Feeding : Independent (2) Cheyenne Walker Rn - 02/27/2021 9:12 EST ADL Index Score : 12 Cheyenne Walker Rn - 02/27/2021 9:12 EST Advance Directive Patient has Advance Directive *Q : No, patient refuses Advance Directive information Cheyenne Walker Rn - 02/27/2021 9:12 EST [place] Suicide Severity Rating Scale (C-SSRS) CSSRS Past Month Wish to be : No CSSRS Past Month Suicidal Thoughts : No CSSRS Lifetime Suicide Behavior : No Suicide Severity Rating Score : 0 Suicide Severity Rating : No Additional Care Required at this time Cheyenne Walker Rn - 02/27/2021 9:12 EST Psychosocial History Do You Have a History of the Following? : Anxiety, Depression Currently in Unsafe Situation : No Cheyenne Walker Rn - 02/27/2021 9:12 EST Teaching/Learning Assessment Individuals Taught : Patient Readiness to Learn : Cooperative Readiness to Learn : Demonstration, Printed materials Cheyenne Walker Rn - 02/27/2021 9:12 EST Education Topics, Periop Preadmission Perioperative Education Grid Arrival Time/Place : Verbalizes understanding Infection Control : Verbalizes understanding Preprocedure Preparations : Verbalizes understanding Preprocedure Tests/Labs : Verbalizes understanding Remove Body Piercings : Verbalizes understanding Responsible Adult : Verbalizes understanding Take/Hold Medications Pre-Procedure : Verbalizes understanding Cheyenne Walker Rn - 02/27/2021 9:12 EST General Info Want Family/Rep/Phys Notified of Admit : No Emergency Contact #1 : Garry Emergency Contact #1 Emergency Contact #1 Relationship : spouse Emergency Contact #2 : . Emergency Contact #2 Phone Number : .. Emergency Contact #2 Relationship : . Primary Language : Kinyarwanda Communication Barrier : None Steel Floor Pan Placing Supervisor Needed : No Cheyenne Walker Rn - 02/27/2021 9:12 EST Timothy Scale Timothy Sensory Perception : No impairment Timothy Moisture : Rarely moist Timothy Activity : Walks frequently Timothy Mobility : No limitation Timothy Nutrition : Excellent Timothy Friction and Shear : No apparent problem Timothy Score : 23 Cheyenne Walker Rn - 02/27/2021 9:12 EST Sleep Apnea Risk Assmt Hx of Obstructive Sleep Apnea Diagnosis : No Snore Loudly : Yes Tired, Fatigued, or Sleepy During Day : No Observed Stopping Breathing During Sleep : No Have/Are Being Treated for Hypertension : No BMI Greater Than 35 kg/m2 : Yes Age over 50 Years Old : No Neck Circumference Greater Than 40 cm : No Gender Male : No STOP-BANG Sleep Apnea Risk Level Score : 2 Cheyenne Walker Rn - 02/27/2021 9:12 EST documented in this encounter Plan of Treatment Not on file documented as of this encounter Visit Diagnoses Not on filedocumented in this encounter
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
--- OUTSIDE RECORDS SUMMARY | 2024-08-05 19:12 | XMS_ITS | Encounter Summary ---
Author Organization [employer] Address [address] [place] [address] Care Team Providers Care Auditor Internal Name Role Phone Unavailable Primary Care Provider Unavailabl e Encounter Details Date Type Department Care Team (Late st Contact Info) Description 03/20/2021 Transcribed Document [facility] [place] Family Medicine [facility] [place] [address] ProviderCindi MD [facility] [place] [address] Social History Tobacco Use Types Packs/Day Years Used Date Smoking Tobacco: Never Assessed Comments Unknown Sex and Gender Information Value Date Recorded Sex Assigned at Not on file Legal Sex Female 7:24 PM CDT Gender Identity Not on file Sexual Orientation Not on file documented as of this encounter Miscellaneous Notes * [employer]ner Conversion Note - Cindi ProviderMD - 03/20/2021 9:24 AM CUSTOMER ACQUISITION SPECIALIST Patient: SHERI MCGHEE Age: 30 Years Sex: Female : 1990 Admit Date 03/17/2021 04:55 Discharge Date 03/19/2021 10:44 Primary Care Provider HOLLAND ANGLIN, [facility] Discharge Diagnosis Morbid obesity due to excess calories 03/17/2021 E66.01 ICD-10-CM Secondary discharge diagnoses 2. GERD 3. Hiatal hernia 4. Anxiety 5. Joint pain [1] Procedures SN - Proc - Procedure: Hernia Repair Diaphragmatic Laparoscopic (03/17/21 08:13:50) 1. Laparoscopic Hiatal Hernia Repair 2. Laparoscopic Sleeve Gastrectomy [2] Reason for Hospitalization The patient is a 30 Years-old Female who presents with longstanding history of morbid obesity and associated comorbidities, and has tried multiple conservative therapies for losing weight that have all been unsuccessful. After discussing risks and benefits of bariatric surgery and reviewing the patient's medical history, the patient elected to proceed with laparoscopic sleeve gastrectomy with hiatal hernia repair. [3] Hospital Course On the day of admission the patient was taken the operating room by Dr. Nicholson where she underwent surgical procedures listed above. Both these procedures were tolerated by the patient without any complications. Postoperatively she was taken the recovery room followed by admission to the medical surgical floor. On the 1st postoperative day patient was afebrile and her vital signs were stable. She was ambulating in the halls without difficulty. Her postsurgical pain was minimal and well controlled. The patient was experiencing dry heaving and nausea with cold liquids. Reason she was kept in the hospital for another 24 hours for observation. On 2nd postoperative day patient was considerably better. Her nausea and dry heaves had resolved following removal of her scopolamine patch. Patient reportedly stated that she had a family member who had a similar problem with the scopolamine patch. Patient continued to do well with ambulation and her pain was well controlled. On the 2nd postoperative day she was discharged home in stable condition. Discharge Disposition Home Discharge Follow Up JAYASHREE NICHOLSON - 08:45 AM JAYASHREE NICHOLSON - 10:00 AM Discharge Medications (5) Active FLUoxetine 20 mg, Oral, At Bedtime oxyCODONE 5 mg oral tablet 5 mg = 1 Tab, PRN, Oral, Q6H PriLOSEC 20 mg oral delayed release capsule 20 mg = 1 Cap, Oral, Daily Zofran 4 mg oral tablet 4 mg = 1 Tab, PRN, Oral, Q8H ZyrTEC 10 mg oral tablet 10 mg, Oral, Daily Code Status No Code Status Order on Record Condition on Discharge Stable Consulting Physicians KAREN HOLDER MD MYSORE, SATHYENDRA, MD Patient Discharge Summary Orders Please take all new medications as prescribed. [...] Follow Up Instructions: followup next weekCall for [id number] Follow Up Instructions: call office on saturday [...] Rohith-handbook., Discharge Diet: Other (see Special Instructions) [4] [1] Laparoscopic Sleeve Gastrectomy with Hiatal Hernia Repair; JAYASHREE NICHOLSON MD-GEN 03/17/2021 09:22 EST [2] Laparoscopic Sleeve Gastrectomy with Hiatal Hernia Repair; JAYASHREE NICHOLSON MD-GEN 03/17/2021 09:22 EST [3] Laparoscopic Sleeve Gastrectomy with Hiatal Hernia Repair; JAYASHREE NICHOLSON MD-GEN 03/17/2021 09:22 EST [4] Inpatient Discharge Instructions; Alexandria Zacarias RN 03/19/2021 10:05 EST documented in this encounter Plan of Treatment Not on file documented as of this encounter Visit Diagnoses Not on filedocumented in this encounter
--- OUTSIDE RECORDS SUMMARY | 2024-08-05 19:12 | XMS_ITS | Encounter Summary ---
Author Organization [employer] Address [address] [place] [address] Care Team Providers Care Senior Product Manager Name Role Phone Unavailable Primary Care Provider Unavailabl e Encounter Details Date Type Department Care Team (Late st Contact Info) Description 03/19/2021 Transcribed Document [facility] [place] [facility] [place] [place] [address] ProviderCindi MD [address] [place] [address] Social History Tobacco Use Types Packs/Day Years Used Date Smoking Tobacco: Never Assessed Comments Unknown Sex and Gender Information Value Date Recorded Sex Assigned at Not on file Legal Sex Female 7:24 PM CDT Gender Identity Not on file Sexual Orientation Not on file documented as of this encounter Miscellaneous Notes * [employer]ner Conversion Note - Historical ProviderMD - 03/19/2021 12:00 AM PRIVACY DIRECTOR Pain Assessment Entered On: 03/19/2021 5:03 EST Performed On: 03/19/2021 0:03 EST by Risa Iqbal RN Intervention Information: ketorolac Performed by Risa Iqbal RN on 03/18/2021 23:33:00 EST ketorolac,15mg IV Push,Peripheral Line 1 Pain Assessment Pain Assessment : Follow-up assessment Pain Scale Goal : 4 Pain Scale Used : 0-10 Scale Location : Abdominal Risa Iqbal RN - 03/19/2021 5:03 EST Pain Scale Intensity : 3 Risa Iqbal RN - 03/19/2021 5:03 EST Image 4 - Images currently included in the form version of this document have not been included in the text rendition version of the form. documented in this encounter Plan of Treatment Not on file documented as of this encounter Visit Diagnoses Not on filedocumented in this encounter
--- OUTSIDE RECORDS SUMMARY | 2024-08-05 19:12 | XMS_ITS | Encounter Summary ---
Author Organization [employer] Address [address] [place] [address] Care Team Providers Care Melter Helper Name Role Phone Unavailable Primary Care Provider Unavailabl e Encounter Details Date Type Department Care Team (Late st Contact Info) Description 03/18/2021 Transcribed Document [facility] [place] Family Medicine [address] [place] [address] ProviderCindi MD [address] [place] [address] Social History Tobacco Use Types Packs/Day Years Used Date Smoking Tobacco: Never Assessed Comments Unknown Sex and Gender Information Value Date Recorded Sex Assigned at Not on file Legal Sex Female 7:24 PM CDT Gender Identity Not on file Sexual Orientation Not on file documented as of this encounter Miscellaneous Notes * Cerner Conversion Note - Historical ProviderMD - 03/18/2021 2:00 AM ASSISTANT COOK Blow Up Operator Details Entered On: 03/18/2021 3:24 EST Performed On: 03/18/2021 2:00 EST by Risa Iqbal RN Order Details Transport Mode Order Detail : Wheelchair Isolation Precautions Order Detail : Standard Precautions Order Detail : 0 IV Order Detail : 1 Oxygen Order Detail : 0 Nurse Collect Order Detail : 0 Lift/Transfer : Independent Central Line Order Detail : No Room Service : Appropriate Arterial Line : No Patient Needs Meds Crushed/Liquid : No Risa Iqbal RN - 03/18/2021 3:24 EST documented in this encounter Plan of Treatment Not on file documented as of this encounter Visit Diagnoses Not on filedocumented in this encounter
--- OUTSIDE RECORDS SUMMARY | 2024-08-05 19:12 | XMS_ITS | Encounter Summary ---
Author Organization [employer] Address [address] [place] [address] Care Team Providers Care Rectifying Operator Name Role Phone Unavailable Primary Care Provider Unavailabl e Encounter Details Date Type Department Care Team (Late st Contact Info) Description 02/27/2021 Transcribed Document [facility] [place] Family Medicine [address] [place] [address] ProviderCindi MD [address] [place], [place] [address] Social History Tobacco Use Types Packs/Day Years Used Date Smoking Tobacco: Never Assessed Comments Unknown Sex and Gender Information Value Date Recorded Sex Assigned at Not on file Legal Sex Female 7:24 PM CDT Gender Identity Not on file Sexual Orientation Not on file documented as of this encounter Miscellaneous Notes * Cerner Conversion Note - Historical ProviderMD - 02/27/2021 9:12 AM LABORER TANBARK Meds to Bed Enrollment Entered On: 02/27/2021 9:12 EST Performed On: 02/27/2021 9:12 EST by Cheyenne Walker Rn Meds to Bed Enrollment Patient Enrollment Decision: : Yes/enroll in meds to bed program Cheyenne Walker Rn - 02/27/2021 9:12 EST documented in this encounter Plan of Treatment Not on file documented as of this encounter Visit Diagnoses Not on filedocumented in this encounter
--- OUTSIDE RECORDS SUMMARY | 2024-08-05 19:12 | XMS_ITS | Encounter Summary ---
Author Organization [employer] Address [address] [place] [address] Care Team Providers Care Warehouse Associate Name Role Phone Unavailable Primary Care Provider Unavailabl e Encounter Details Date Type Department Care Team (Late st Contact Info) Description 03/19/2021 Transcribed Document [facility] [place] [address] [place] [address] ProviderCindi MD [address] [place] [address] Social History Tobacco Use Types Packs/Day Years Used Date Smoking Tobacco: Never Assessed Comments Unknown Sex and Gender Information Value Date Recorded Sex Assigned at Not on file Legal Sex Female 7:24 PM CDT Gender Identity Not on file Sexual Orientation Not on file documented as of this encounter Miscellaneous Notes * Cerner Conversion Note - Historical ProviderMD - 03/19/2021 10:04 AM POKER MANAGER Stroke/Warfarin Instructions Entered On: 03/19/2021 10:04 EST Performed On: 03/19/2021 10:04 EST by Alexandria Zacarias RN Stroke/Warfarin Instructions Stroke/TIA Discharge Ins : N/A Warfarin Discharge Ins : N/A Alexandria Zacarias RN - 03/19/2021 10:04 EST Electronically signed by Navin [facility] Conversion Research Phlebotomist Cerner at 06/13/2022 12:53 PM CDT documented in this encounter Plan of Treatment Not on file documented as of this encounter Visit Diagnoses Not on filedocumented in this encounter
--- OUTSIDE RECORDS SUMMARY | 2024-08-05 19:12 | XMS_ITS | Encounter Summary ---
Author Organization [employer] Address [address] [place] [address] Care Team Providers Care Administrative Technician Name Role Phone Unavailable Primary Care Provider Unavailabl e Encounter Details Date Type Department Care Team (Late st Contact Info) Description 11/14/2020 Transcribed Document [facility] [place] Family Medicine [facility] [place] [address] ProviderCindi MD [address] [place] [address] Social History Tobacco Use Types [...] - 11/14/2020 1:55 PM CDT [facility] Intra[facility] Summary Primary Physician: JAYASHREE RIVERA MD Finalized Date/Time: 11/14/20 14:01:46 Pt. Name: SHERI MCGHEE D.O.B./Sex: 1990 Female Med Rec #: [id number] Physician: JAYASHREE RIVERA MD Financial #: [id number] Pt. Type: E Room/Bed: [facility] Admit/Disch: 11/14/20 11:56:00 - Institution: [facility] - Case Attendance Entry 1 Entry 2 Entry 3 Case Attendee JAYASHREE RIVERA MD Davis, Lizabeth, Rn Uriah Lorenz, Underwear Welter Role Performed Surgeon/Proceduralist, Mandarin Tutor, First Scrub, First First Time In 11/14/20 13:51:00 11/14/20 13:51:00 11/14/20 13:51:00 Time Out 11/14/20 14:03:00 11/14/20 14:03:00 11/14/20 14:03:00 Procedure Esophagogastroduodenosco Esophagogastroduodenosco Esophagogastroduodenosco py, Gastric Biopsy py, Gastric Biopsy py, Gastric Biopsy Other Attendee Superficial Wound Closed By: Last Modified By: Meri St Rn Davis, Lizabeth, Meri Lopez Rn 11/14/20 14:01:44 11/14/20 14:01:44 11/14/20 14:01:44 Entry 4 Entry 5 Entry 6 Case Attendee TROY HOYT DO-ANS MCDONALD, YUMIKO GOMEZ, YAO PARRISH, GREG MULTIMEDIA COORDINATOR Role Performed Anesthesiologist of MULTIMEDIA COORDINATOR/Nurse Principal Technologist MULTIMEDIA COORDINATOR/Nurse Principal Technologist Record Time In 11/14/20 13:51:00 11/14/20 13:51:00 11/14/20 13:54:00 Time Out 11/14/20 14:03:00 11/14/20 13:54:00 11/14/20 14:03:00 Procedure Esophagogastroduodenosco Esophagogastroduodenosco Esophagogastroduodenosco py, Gastric Biopsy py, Gastric Biopsy py, Gastric Biopsy Other Attendee Superficial Wound Closed By: Last Modified By: Meri St, Meri Lopez, Meri Lopez Rn 11/14/20 14:01:44 11/14/20 14:01:44 11/14/20 14:01:44 [facility] - Case Attendance Audit 11/14/20 14:01:44 Communicable Disease Specialist: [id number] Modifier: [id number] <+> Time Out 1 <*> Procedure Esophagogastroduodenoscopy, Gastric Biopsy 2 <+> Time Out 2 <*> Procedure Esophagogastroduodenoscopy, Gastric Biopsy 3 <+> Time Out 3 <*> Procedure Esophagogastroduodenoscopy, Gastric Biopsy 4 <+> Time Out 4 <*> Procedure Esophagogastroduodenoscopy, Gastric Biopsy 5 <*> Procedure Esophagogastroduodenoscopy, Gastric Biopsy 6 <+> Time Out 6 <*> Procedure Esophagogastroduodenoscopy, Gastric Biopsy 11/14/20 13:55:30 Communicable Disease Specialist: [id number] Modifier: [id number] <+> Time Out 5 <*> Procedure Esophagogastroduodenoscopy, Gastric Biopsy <+> 6 Case Attendee <+> 6 Role Performed <+> 6 Time In <+> 6 Procedure 11/14/20 13:52:17 Communicable Disease Specialist: [id number] Modifier: [id number] <+> Time In 1 <*> Procedure Esophagogastroduodenoscopy 2 <+> Time In 2 <*> Procedure Esophagogastroduodenoscopy 3 <+> Time In 3 <*> Procedure Esophagogastroduodenoscopy 4 <+> Time In 4 <*> Procedure Esophagogastroduodenoscopy 5 <+> Time In 5 <*> Procedure Esophagogastroduodenoscopy 11/14/20 13:44:26 Communicable Disease Specialist: [id number] Modifier: [id number] <+> 1 Procedure 2 <*> Procedure Esophagogastroduodenoscopy 3 <*> Procedure Esophagogastroduodenoscopy 4 <*> Procedure Esophagogastroduodenoscopy 5 <*> Procedure Esophagogastroduodenoscopy [facility] - Case Times Entry 1 Patient In Room Time 11/14/20 13:51:00 Out Room Time 11/14/20 14:03:00 Anesthesia Start Time 11/14/20 13:51:00 Stop Time 11/14/20 14:01:00 Surgery / Procedure Times Start Time 11/14/20 13:55:00 Stop Time 11/14/20 14:01:00 Last Modified By: Meri St Rn 11/14/20 14:01:26 [facility] - Case Times Audit 11/14/20 14:01:26 Communicable Disease Specialist: [id number] Modifier: [id number] <+> 1 Out Room Time <+> 1 Stop Time <+> 1 Stop Time 11/14/20 13:55:57 Communicable Disease Specialist: [id number] Modifier: [id number] <+> 1 Start Time [facility] - Cultures and Spec Summary Entry 1 Cultrures and Specimens Specimen Ordered: Yes Test(s) Routine/Path-Lab Requested/Final Disposition Last Modified By: Meri St Rn 11/14/20 13:52:26 [facility] - Delays Entry 1 Delay Reason Other Duration 0 Minute(s) Comment NO DELAY Last Modified By: Meri St Rn 11/14/20 13:43:54 [facility] - Departure from OR Entry 1 Integumentary Assessment Integumentary WDL Assessment WDL Transfer/Handoff Transfer to PACU Phase I Post-op Transport Stretcher/Gurney Via Patient Transport Meri St Rn, Accompanied by YUMIKO DYKES CRNA Last Modified By: Meri St Rn 11/14/20 13:43:56 [facility] - Endoscopy Details Entry 1 Abdomen Procedure Soft, Non-Tender Assessment Procedure Abdomen 11/14/20 13:51:00 Assessment D/T Radio Frequency Ablation Abdominal Pressure Last Modified By: Meri St Rn 11/14/20 13:51:22 [facility] End[facility] - Fire Risk Assessment Entry 1 Fire Info Surgical Site or 1- Yes Incision Above the Xyphoid Open O2 Source 1- Yes (Mask or Cannula) Available Ignition 1- Yes (ESU, Laser, Light Source) Fire Risk 3 Assessment Score Fire Score Fire Risk Yes Assessment Complete Fire Risk Meri St Rn Assessment Verified By Fire Risk 11/14/20 13:51:00 Assessment Verified Date/Time Fire Risk High Risk Protocol Yes Implemented Standard Fire Yes Safety Precautions Followed Last Modified By: Meri St Rn 11/14/20 13:51:24 [facility] End[facility] - General Case Flower Machine Operator 1 Case Information OR Endo 02 [facility] Case Level 1 Room Verified Yes Wound Class II - Clean-Contaminated Specialty General Anesthesia Type MAC ASA Class 3 Diagnosis Preop Diagnosis Dyspepsia Postop Diagnosis hiatal hernia Last Modified By: Meri St Rn 11/14/20 14:01:22 [facility] - General Case Data Audit 11/14/20 14:01:22 Communicable Disease Specialist: [id number] Modifier: [id number] <+> 1 Postop Diagnosis 11/14/20 13:53:23 Communicable Disease Specialist: [id number] Modifier: [id number] 1 <*> Specialty 11/14/20 13:51:34 Communicable Disease Specialist: [id number] Modifier: [id number] <+> ASA Class 1 <*> Preop Diagnosis [facility] - Intraoperative Assessment Entry 1 Valid History / Yes Physical in Chart Preoperative Yes Checklist Reviewed/Evaluated Allergies Reviewed Yes Patient is Latex No Sensitive Level of WDL Consciousness (WDL = Alert, Oriented to Person, Place, and Time) Present Upon ECG monitored Arrival to OR Last Modified By: Meri St Rn 11/14/20 13:44:06 [facility] - Intraoperative Equipment Entry 1 Type Scope Equipment Intraop Monitoring Electrocardiogram Three lead placement (ECG) Electrode Placement Blood Pressure Non-Invasive BP Device Source Blood Pressure Arm, left upper Location Pulse Oximeter Hand, right Probe Site Antiembolic Devices Scopes Flexible Endoscopes Gastroscope Used Scope Serial 2500 Number/Identificatio n Number Photo/Video Documentation Photo Yes Video No Last Modified By: Meri St Rn 11/14/20 13:54:23 [facility] - Patient Positioning Entry 1 Procedure Esophagogastroduodenosco py, Gastric Biopsy Body Position Lateral, right side up Left Arm Position Resting at side Right Arm Position Resting at side Left Leg Position Other Right Leg Position Other Position Comments Right leg over left leg uncrossed Feet Uncrossed Yes Pressure Points Yes Checked Positioned By Meri St Rn, YUMIKO DYKES CRNA Position Verified Positioning Yes Verified by Anesthesia Positioning Yes Verified by Surgeon Last Modified By: Meri St Rn 11/14/20 13:52:19 [facility] - Patient Positioning Audit 11/14/20 13:52:19 Communicable Disease Specialist: [id number] Modifier: [id number] <*> Procedure Esophagogastroduodenoscopy [facility] - Sign In Entry 1 Patient, Site, Yes Procedure Identified Surgical Consent Yes Confirmed Relevant Surgical Yes Documents Available Surgical Site N/A Marked by person performing procedure Allergies No Airway Difficult No Airway/Aspiration Risk Difficult Yes Airway/Aspiration Intervention Equipment Available Blood Loss Risk No Blood Loss No Intervention Equipment Prepared and Ready Blood Identifiers Not applicable Verified Per Policy Hypothermia Risk No Warming Measures Yes Taken Last Modified By: Meri St Rn 11/14/20 13:44:17 [facility] - Sign Out Entry 1 RN Confirmation Surgical Yes Procedure(s) Identified Instrument, Sponge N/A and Sharps Counts Correct/Documented Equipment Problems N/A Documented Specimen Labeled Yes Correctly Urinary Catheter N/A Documented in IView Safety Checklist Yes Elements Complete? RN Sign Out Meri St Rn Signature RN Sign Out 11/14/20 14:03:00 Signature Date/Time Plan of Care Outcome - [...] of Care Outcome - Xray/Images OUTCOME STATEMENT: N/A Absence of observable signs or symptoms of radiation injury Plan of Care Outcome - Counts OUTCOME STATEMENT: N/A Absence of signs and symptoms of injury related to extraneous objects Last Modified By: Meri St Rn 11/14/20 14:01:39 [facility] - Surgical Procedures Entry 1 Entry 2 Procedure Esophagogastroduodenosco Gastric Biopsy py Modifiers Additional Magalie-Test Procedure Description Primary Procedure Yes No Primary Surgeon JAYASHREE RIVERA MD MATHIS, RACHEL, MD Start 11/14/20 13:55:00 11/14/20 13:55:00 Stop 11/14/20 14:01:00 11/14/20 14:01:00 Physician States Cecum Reached Anesthesia Type MAC MAC Specialty General General Wound Class II - Clean-Contaminated II - Clean-Contaminated Last Modified By: Meri St Rn Davis, Lizabeth, Rn 11/14/20 14:01:43 11/14/20 14:01:43 [facility] - Surgical Procedures Audit 11/14/20 14:01:43 Communicable Disease Specialist: [id number] Modifier: [id number] <+> 1 Start <+> 1 Stop <+> 2 Start <+> 2 Stop 11/14/20 13:52:34 Communicable Disease Specialist: [id number] Modifier: [id number] 1 <*> Procedure Esophagogastroduodenoscopy 1 <*> Specialty 11/14/20 13:52:17 Communicable Disease Specialist: [id number] Modifier: [id number] <+> 2 Procedure <+> 2 Primary Procedure <+> 2 Primary Surgeon <+> 2 Specialty <+> 2 Wound Class <+> 2 Anesthesia Type <+> 2 Additional Procedure Description [facility] - Time Out Entry 1 Procedure to be Esophagogastroduodenosco Performed py Time Out Time Out Pause Time 11/14/20 13:54:00 All activity Yes suspended (unless life threatening emergency) Team Verbally Correct patient Confirms Information identity, Consent form is present and accurate, Agreement on the procedure to be done, Correct patient position, Reconcile problems if responses among team members differ Antibiotic N/A Prophylaxis Administered Or In Progress Within the Last 60 Minutes Beta Eugene N/A Administered Venous N/A Thromboembolism Prophylaxis Required Anticipated Critical Events Surgeon None expected Last Modified By: Meri St Rn 11/14/20 13:54:38 Case Comments <None> Finalized By: Meri St Rn Document Signatures Signed By: Meri St Rn 11/14/20 14:01 Electronically signed by Navin [facility] Conversion Rehabilitation Medicine Physician Cerner at 06/13/2022 12:58 PM CDT documented in this encounter Plan of Treatment Not on file documented as of this encounter Visit Diagnoses Not on filedocumented in this encounter
--- OUTSIDE RECORDS SUMMARY | 2024-08-05 19:12 | XMS_ITS | Encounter Summary ---
Author Organization [employer] Address [address] [place] [address] Care Team Providers Care Livestock Laborer Name Role Phone Unavailable Primary Care Provider Unavailabl e Encounter Details Date Type Department Care Team (Late st Contact Info) Description 03/03/2021 Transcribed Document [facility] [place] Family Medicine [address] [place] [address] ProviderCindi MD [address] [place] [address] Social History Tobacco Use Types Packs/Day Years Used Date Smoking Tobacco: Never Assessed Comments Unknown Sex and Gender Information Value Date Recorded Sex Assigned at Not on file Legal Sex Female 7:24 PM CDT Gender Identity Not on file Sexual Orientation Not on file documented as of this encounter Miscellaneous Notes * Cerner Conversion Note - Cindi ProviderMD - 03/03/2021 11:22 AM [place] MIXER OPERATOR UM Authorization Entered On: 03/03/2021 11:23 EST Performed On: 03/03/2021 11:22 EST by SMITA BARRERA RN-Utilization Review Primary Insurance Authorization Authorization and Policy Numbers : Insurance 1 Health Plan: [place] [employer] Policy Number: [id number] Authorization Number: [id number] Insurance Primary Name : [place] [employer] Policy Number: [id number] Authorization Status-Primary : Admit approved Reference Number-Primary : [id number] Authorization Number-Primary : [id number] Number of Days Authorized-Primary : 6 Day(s) Authorized Service Begin Date-Primary : 03/17/2021 EST Authorized Service End Date-Primary : 03/23/2021 EST Authorization Comments-Primary : [place] [employer] approved per Star note for inpt 7 days Historical Authorization Comments-Primary : No Authorization Comments Found SMITA BARRERA RN-Utilization Review - 03/03/2021 11:22 EST documented in this encounter Plan of Treatment Not on file documented as of this encounter Visit Diagnoses Not on filedocumented in this encounter
--- OUTSIDE RECORDS SUMMARY | 2024-08-05 19:12 | XMS_ITS | Encounter Summary ---
Author Organization [employer] Address [address] [place] [address] Care Team Providers Care Urology Teacher Name Role Phone Unavailable Primary Care Provider Unavailabl e Encounter Details Date Type Department Care Team (Late st Contact Info) Description 03/18/2021 Transcribed Document [facility] [place] [address] [place] [address] ProviderCindi MD [address] [place] [address] Social History Tobacco Use Types Packs/Day Years Used Date Smoking Tobacco: Never Assessed Comments Unknown Sex and Gender Information Value Date Recorded Sex Assigned at Not on file Legal Sex Female 7:24 PM CDT Gender Identity Not on file Sexual Orientation Not on file documented as of this encounter Miscellaneous Notes * Cerner Conversion Note - Historical ProviderMD - 03/18/2021 5:00 PM CORPORATE SALES REPRESENTATIVE Chart Check - Review Order Profile Entered On: 03/18/2021 18:19 EST Performed On: 03/18/2021 17:00 EST by GAVINO ELIAS RN Chart Check Powerplans Initiated/Discontinued as Appropriate : Yes All Active Orders Reviewed : Yes GAVINO ELIAS RN - 03/18/2021 18:19 EST Electronically signed by Navin [facility] Conversion Timber Buyer Cerner at 06/13/2022 12:59 PM CDT documented in this encounter Plan of Treatment Not on file documented as of this encounter Visit Diagnoses Not on filedocumented in this encounter
--- OUTSIDE RECORDS SUMMARY | 2024-08-05 19:12 | XMS_ITS | Encounter Summary ---
Author Organization [employer] Address [address] [place] [address] Care Team Providers Care Assembler Seat Name Role Phone Unavailable Primary Care Provider Unavailabl e Encounter Details Date Type Department Care Team (Late st Contact Info) Description 03/19/2021 Transcribed Document [facility] [place] [facility] [place] [address] ProviderCindi MD [address] [place] [address] Social History Tobacco Use Types Packs/Day Years Used Date Smoking Tobacco: Never Assessed Comments Unknown Sex and Gender Information Value Date Recorded Sex Assigned at Not on file Legal Sex Female 7:24 PM CDT Gender Identity Not on file Sexual Orientation Not on file documented as of this encounter Miscellaneous Notes * Cerner Conversion Note - Cindi ProviderMD - 03/19/2021 10:03 AM FULL SERVICE SUPERVISOR Final Discharge Planning Entered On: 03/19/2021 10:04 EST Performed On: 03/19/2021 10:03 EST by Zahraa Lee Rn Final Discharge Planning Discharge Arrangements : Patient Post-Acute Information Patient Name: SHERI MCGHEE Gender: Female : [birth year] Age: 30 Years No Post-Acute Placement(s) Listed No Post-Acute Service(s) Listed No Curaspan Referral(s) Listed Patient Offered Choice/Affiliations Explained : No Designation of Choice Signed : No Important Medicare Message Reviewed With : Other: NA Transportation Needs : Car Follow Up Appointment Scheduled : Yes Is Patient High/Moderate Readmission Risk? : No Patient/Family Notified of Plan : Yes Is Patient Ready for Discharge? : Yes Physician Notified Patient is Ready for Discharge? : Yes Discharge To Care Management : Home/Residential/Residential or Self Care -01 Zahraa Lee Rn - 03/19/2021 10:03 EST Final Narrative Note Final Narrative Note : home no needs Zahraa Lee Rn - 03/19/2021 10:03 EST Electronically signed by Navin [facility] Conversion Turbine Attendant Cerner at 06/13/2022 1:02 PM CDT documented in this encounter Plan of Treatment Not on file documented as of this encounter Visit Diagnoses Not on filedocumented in this encounter
--- OUTSIDE RECORDS SUMMARY | 2024-08-05 19:12 | XMS_ITS | Encounter Summary ---
Author Organization [employer] Address [address] [place] [address] Care Team Providers Care Biomass Technician Name Role Phone Unavailable Primary Care Provider Unavailabl e Encounter Details Date Type Department Care Team (Late st Contact Info) Description 03/23/2021 Transcribed Document [facility] [place] [facility] [address] ProviderCindi MD [address] [place] [address] Social History Tobacco Use Types Packs/Day Years Used Date Smoking Tobacco: Never Assessed Comments Unknown Sex and Gender Information Value Date Recorded Sex Assigned at Not on file Legal Sex Female 7:24 PM CDT Gender Identity Not on file Sexual Orientation Not on file documented as of this encounter Miscellaneous Notes * Cerner Conversion Note - Historical ProviderMD - 03/23/2021 11:09 AM BEACH EXPERT Nursing Discharge Summary Entered On: 03/23/2021 11:10 EST Performed On: 03/23/2021 11:09 EST by ADRIAN FLORES RN Discharge Documentation Discharge Date/Time : 03/23/2021 11:09 EST Patient Disposition, General : Discharge Discharge To : Home with ambulatory/outpatient follow-up Mode Of Departure, General Discharge : Ambulatory Accompanied By, Discharge : Unaccompanied IV Discontinued : Yes Personal Belongings With Patient : Yes Pt's Own Supply of Medications Returned : No patient supply of medications to return Prescriptions Given to Patient : No Discharge Instructions Reviewed With, Opportunity For Questions Given : Patient Patient Education Completed : Yes Teaching Method : Explanation Teaching Evaluation : Verbalizes understanding Education Comment : Pt tolerated infusion without complaints or difficulty, denies any nausea. Refused zofran for this Iv setting. ADRIAN FLORES RN - 03/23/2021 11:09 EST Electronically signed by Navin [facility] Conversion Flooring Mechanic Cerner at 06/13/2022 1:06 PM CDT documented in this encounter Plan of Treatment Not on file documented as of this encounter Visit Diagnoses Not on filedocumented in this encounter
--- OUTSIDE RECORDS SUMMARY | 2024-08-05 19:12 | XMS_ITS | Encounter Summary ---
Author Organization [employer] Address [address] [place] [address] Care Team Providers Care Machine Binding Folder Name Role Phone Unavailable Primary Care Provider Unavailabl e Encounter Details Date Type Department Care Team (Late st Contact Info) Description 03/17/2021 Transcribed Document [facility] [place] [facility] [address] ProviderCindi MD [address] [place] [address] Social History Tobacco Use Types Packs/Day Years Used Date Smoking Tobacco: Never Assessed Comments Unknown Sex and Gender Information Value Date Recorded Sex Assigned at Not on file Legal Sex Female 7:24 PM CDT Gender Identity Not on file Sexual Orientation Not on file documented as of this encounter Miscellaneous Notes * Cerner Conversion Note - Historical ProviderMD - 03/17/2021 2:49 PM 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 Admission History, Adult Entered On: 03/17/2021 15:00 EST Performed On: 03/17/2021 14:49 EST by Jewell Vega RN-PATIENT CARE [facility]EDSIDE NON-EXEMPT Advance Directive Patient has Advance Directive *Q : No, patient refuses Advance Directive information Jewell Vega RN-PATIENT CARE BEDSIDE NON-EXEMPT - 03/17/2021 14:49 EST Anesthesia/Transfusion History Family History of Anesthesia Reaction : No prior transfusion(s) Blood Transfusion Acceptable to Patient : Yes Transfusion History : Prior anesthesia without reaction Family History of Anesthesia Reaction : None Jewell Vega RN-PATIENT CARE BEDSIDE NON-EXEMPT - 03/17/2021 14:49 EST Anticipated Discharge Needs Discharge To, Anticipated : Home Jewell Vega RN-PATIENT CARE BEDSIDE NON-EXEMPT - 03/17/2021 14:49 EST Education Topics, Admission Orientation DCP GENERIC CODE Advance Directives : Verbalizes understanding Assessment/Vital Signs : Verbalizes understanding Bed Control : Verbalizes understanding Call Light : Verbalizes understanding Confidentiality : Verbalizes understanding Diet/Room Service : Verbalizes understanding Fall Prevention : Verbalizes understanding Hand Hygiene : Verbalizes understanding ID Band Applied : Verbalizes understanding Isolation Precautions : Verbalizes understanding Orientation to Room/Bathroom : Verbalizes understanding Patient Bill of Rights : Verbalizes understanding Patient Rights/Responsibilities : Verbalizes understanding Patient Safety : Verbalizes understanding Personal Privacy Code : Verbalizes understanding Rounding : Verbalizes understanding Siderails use/risks : Verbalizes understanding Skin Precautions : Verbalizes understanding Television/Phone : Verbalizes understanding Visiting Policy : Verbalizes understanding Jewell Vega RN-PATIENT CARE BEDSIDE NON-EXEMPT - 03/17/2021 14:49 EST Functional Assessment Living Situation : Home Patient Lives With : Adult Child/Children, Spouse Persons Assisting Patient at Home : Spouse Current Daily Living Assistance : None Sensory Deficits : None Mobility Assistance Prior to Admission : Independent DUONG Hx Falls Immediate/Within 3 Months : No Current Home Treatments : None Home Equipment : None Jewell Vega RN-PATIENT CARE BEDSIDE NON-EXEMPT - 03/17/2021 14:49 EST General Info Mode of Arrival on Unit : Stretcher Legal Guardian : Spouse Want Family/Rep/Phys Notified of Admit : No Emergency Contact #1 : Garry Emergency Contact #1 Emergency Contact #1 Relationship : spouse Emergency Contact #2 : . Emergency Contact #2 Phone Number : .. Emergency Contact #2 Relationship : . Information Obtained From : Patient, Spouse Primary Language : Azeri Communication Barrier : None Upholsterer Inside Needed : No Jewell Vega RN-PATIENT CARE BEDSIDE NON-EXEMPT - 03/17/2021 14:49 EST Fall Risk Scales ABCs Fall Injury Risk Identification : Surgery ABC Fall Injury Risk : Moderate to high injury risk Injury Moderate to High Risk Interventions : Bed alarm on, Personal alarm on, Specialty low bed, Transport methods appropriate to patient DUONG Hx Falls Immediate/Within 3 Months : No Duong Secondary Diagnosis : No DUONG Use of Ambulatory Aid : None DUONG IV Therapy or IV Access : Yes Duong Gait/Transferring : Weak Duong Mental Status : Oriented to own ability Duong Fall Risk Score : 30 DUONG Fall Scale Risk Level : 25-45 Medium Risk [place] Fall Interventions : Adequate lighting, Assistive devices within reach, Bed in low position, Call device within reach, Fall prevention handout/education per facility policy, Frequent orientation to call device, Frequent orientation to surroundings, Hourly comfort/safety rounds, Non-slip footwear, Personal items within reach, Reinforced to call for assistance before getting out of bed, Room free of clutter/spills, Upper side-rails up, Wheels locked, Wires/Cords secured Barriers to Learning : None evident Learning Style Preferences Family : Printed materials, Verbal explanation Learning Style Preferences Patient : Printed materials, Verbal explanation Fall Risk Scale Calc Temp : 0 Jewell Vega RN-PATIENT CARE BEDSIDE NON-EXEMPT - 03/17/2021 14:49 EST Health Histories Smoking Status : Never (less than 100 in lifetime; none in last 30 days) Smokeless Tobacco Status : Never Jewell Vega RN-PATIENT CARE BEDSIDE NON-EXEMPT - 03/17/2021 14:49 EST Social History (As Of: 03/17/2021 15:00:16 EST) Tobacco: Never (less than 100 in lifetime) Smoking Status. Never Smokeless Tobacco Status. (Last Updated: 02/27/2021 09:10:18 EST by Cheyenne Walker, Jennifer) Alcohol: Alcohol Use History No. Alcohol Use Frequency Socially. (Last Updated: 02/27/2021 09:10:18 EST by Cheyenne Walker, Rn) Substance Abuse: Drug Use Hx: No. (Last Updated: 02/27/2021 09:10:18 EST by Cheyenne Walker, Rn) Height and Weight, Clinical Dosing Height Source : Chart Height Entry Format : [place] Height, Feet : 5 ft(Converted to: 152 cm, 60 Inch) Height, Inches : 4 Inch(Converted to: 0 ft 4 Inch, 10.16 cm) Clinical Height : 162.56 cm Weight Source : Standing scale Weight Entry Format : [place] Clinical Dosing Weight : 123.64 kg Weight, Pounds : 272 lb Body Surface Area (BSA) : 2.23 m2 Body Mass Index : 46.8 kg/m2 (>HHI) [place] Body Weight : 54 kg Jewell Vega RN-PATIENT CARE BEDSIDE NON-EXEMPT - 03/17/2021 14:49 EST Infectious Disease History Does patient have symptoms of COVID-19? : No Has the Patient Been Tested for COVID-19 in the last 14 days? : Yes, Patient stated results Negative Does the Patient state known exposure to a COVID-19 positive case in the last 14 days? : No Patient Vaccinated for COVID-19 : Fully vaccinated Jewell Vega RN-PATIENT CARE [facility] NON-EXEMPT - 03/17/2021 14:49 EST Infectious Disease Risk Screening Grid Cough < 2 wks of unknown origin : NO Cough > 2 weeks : NO Blood in Sputum : NO Fever or self-reported Fever : NO Rash of unknown origin : NO Headache : NO Stiff neck : NO Night Sweats : NO Unexplained Weight Loss : NO Diarrhea (3 episode per day) : NO Jewell Vega RN-PATIENT CARE [facility] NON-EXEMPT - 03/17/2021 14:49 EST Physical contact outside [place] in the last 30 days : No Hospitalized in [place] : No Infectious Disease History : Influenza, Meningitis, Other: Covid 02/2020 INF Disease TB Screening Calc : 0 INF Disease Recent Travel Calc : 0 Jewell Vgea RN-PATIENT CARE [facility] NON-EXEMPT - 03/17/2021 14:49 EST Influenza Vaccine Asmt, Adult Previous Vaccines from Immunization Schedule : No qualifying data available. Influenza Immunization, Current Season : Yes Jewell Vega RN-PATIENT CARE [facility] NON-EXEMPT - 03/17/2021 14:49 EST Pneumococcal Vaccine Previous Vaccines from Immunization Schedule : No qualifying data available. Pneumonia Immunization Received : No Pneumococcal Risk Assessment < Age 65 : None Jewell Vega RN-PATIENT CARE [facility] NON-EXEMPT - 03/17/2021 14:49 EST Order Details IV Order Detail : 1 Lift/Transfer : Independent Room Service : Appropriate Patient Needs Meds Crushed/Liquid : No Jewell Vega RN-PATIENT CARE [facility] NON-EXEMPT - 03/17/2021 14:49 EST Nutrition History Feeding Ability : Independent Eating Poorly Due to Decreased Appetite : No Unplanned Weight Loss in Past 3-6 Months : No Malnutrition Screening Tool Total(mal) : 0 Malnutrition Screening Tool Risk Level : Patient not at risk Jewell Vega RN-PATIENT CARE [facility] NON-EXEMPT - 03/17/2021 14:49 EST [place] Suicide Severity Rating Scale (C-SSRS) CSSRS Past Month Wish to be : No CSSRS Past Month Suicidal Thoughts : No CSSRS Lifetime Suicide Behavior : No Suicide Severity Rating Score : 0 Suicide Severity Rating : No Additional Care Required at this time Jewell Vega RN-PATIENT CARE BEDSIDE NON-EXEMPT - 03/17/2021 14:49 EST Psychosocial History Do You Have a History of the Following? : Anxiety, Depression Currently in Unsafe Situation : No Jewell Vega RN-PATIENT CARE BEDSIDE NON-EXEMPT - 03/17/2021 14:49 EST Sleep Apnea Risk Assmt Hx of [...] Sleep Apnea Risk Level Score : 2 Jewell Vega RN-PATIENT CARE BEDSIDE NON-EXEMPT - 03/17/2021 14:49 EST Spiritual/Cultural Needs Any Spiritual/Cultural Needs or Requests : No Jewell Vega RN-PATIENT CARE BEDSIDE NON-EXEMPT - 03/17/2021 14:49 EST Valuables and Belongings Valuables and Belongings : Clothing, Personal items Clothing : Common streetwear Clothing Disposition : Bedside Personal Items : Cell phone Personal Items Disposition : With family Jewell Vega RN-PATIENT CARE BEDSIDE NON-EXEMPT - 03/17/2021 14:49 EST documented in this encounter Plan of Treatment Not on file documented as of this encounter Visit Diagnoses Not on filedocumented in this encounter
--- OUTSIDE RECORDS SUMMARY | 2024-08-05 19:12 | XMS_ITS | Encounter Summary ---
Author Organization [employer] Address [address] [place] [address] Care Team Providers Care Typing Office Worker Name Role Phone Unavailable Primary Care Provider Unavailabl e Encounter Details Date Type Department Care Team (Late st Contact Info) Description 11/14/2020 Transcribed Document [facility] [place] [facility] [place] [address] ProviderCindi MD [address] [place] [address] Social History Tobacco Use Types Packs/Day Years Used Date Smoking Tobacco: Never Assessed Comments Unknown Sex and Gender Information Value Date Recorded Sex Assigned at Not on file Legal Sex Female 7:24 PM CDT Gender Identity Not on file Sexual Orientation Not on file documented as of this encounter Miscellaneous Notes * Cerner Conversion Note - Historical ProviderMD - 11/14/2020 1:03 PM CDT Pre Procedure Adult Entered On: 11/14/2020 13:07 EDT Performed On: 11/14/2020 13:03 EDT by Cheyenne Walker Rn Height and Weight, Clinical Dosing Height Source : Stated Height Entry Format : [place] Height, Feet : 5 ft(Converted to: 152 cm, 60 Inch) Height, Inches : 3 Inch(Converted to: 0 ft 3 Inch, 7.62 cm) Clinical Height : 160.02 cm Weight Source : Standing scale Weight Entry Format : [place] Clinical Dosing Weight : 117.73 kg Weight, Pounds : 259 lb Body Surface Area (BSA) : 2.16 m2 Body Mass Index : 46 kg/m2 (>HHI) [place] Body Weight : 52 kg Cheyenne Walker Rn - 11/14/2020 13:03 EDT Health Histories Smoking Status : Never (less than 100 in lifetime; none in last 30 days) Smokeless Tobacco Status : Never Cheyenne Walker Rn - 11/14/2020 13:03 EDT Social History (As Of: 11/14/2020 13:07:31 EDT) Infectious Disease History Does patient have symptoms of COVID-19? : No Has the Patient Been Tested for COVID-19 in the last 14 days? : Yes, Patient stated results Negative Does the Patient state known exposure to a COVID-19 positive case in the last 14 days? : No Patient Vaccinated for COVID-19 : Partially vaccinated or need booster Does Patient want a COVID-19 Vaccine? : No Cheyenne Walker Rn - 11/14/2020 13:03 EDT Infectious Disease Risk Screening Grid Cough < [...] day) : NO Cheyenne Walker Rn - 11/14/2020 13:03 EDT Physical contact outside [place] in the last 30 days : No Hospitalized in Foreign Country : No Infectious Disease History : Meningitis INF Disease TB Screening Calc : 0 INF Disease Recent Travel Calc : 0 Cheyenne Walker Rn - 11/14/2020 13:03 EDT COVID19 PreProcedure Screening Is this an Emergent or Add on Procedure? : No Date PreProcedure COVID-19 test known? : Yes Date of PreProcedure COVID-19 : 11/10/2020 EDT Has patient been isolated since the test : Yes Exposed to COVID19 symptoms since test? : No Cheyenne Walker Rn - 11/14/2020 13:03 EDT Anesthesia/Transfusion History Family History of Anesthesia Reaction : No prior transfusion(s) Transfusion History : No prior anesthesia Family History of Anesthesia Reaction : None Cheyenne Walker Rn - 11/14/2020 13:03 EDT Functional Assessment Living Situation : Home Current Home Treatments : None Cheyenne Walker Rn - 11/14/2020 13:03 EDT [place] Suicide Severity Rating Scale (C-SSRS) CSSRS Past Month Wish to be : No CSSRS Past Month Suicidal Thoughts : No CSSRS Lifetime Suicide Behavior : No Suicide Severity Rating Score : 0 Suicide Severity Rating : No Additional Care Required at this time Cheyenne Walker Rn - 11/14/2020 13:03 EDT Psychosocial History Currently in Unsafe Situation : No Cheyenne Walker Rn - 11/14/2020 13:03 EDT Advance Directive Patient has Advance Directive *Q : No, patient refuses Advance Directive information Cheyenne Walker Rn - 11/14/2020 13:03 EDT General Info Want Family/Rep/Phys Notified of Admit : Yes Name/Contact Info Fam/Rep Notified Adm : na Name/Contact Info Physician Notified Adm : Lashon Pelletier Emergency Contact #1 : Garry Mcghee Emergency Contact #1 Emergency Contact #1 Relationship : spouse Emergency Contact #2 : . Emergency Contact #2 Phone Number : . Emergency Contact #2 Relationship : . Primary Language : Gabonese Communication Barrier : None Teacher Aide Clerical Needed : No Cheyenne Walker Rn - 11/14/2020 13:03 EDT Sleep Apnea Risk Assmt Hx of Obstructive Sleep Apnea Diagnosis : No Snore Loudly : No Tired, Fatigued, or Sleepy During Day : No Observed Stopping Breathing During Sleep : No Have/Are Being Treated for Hypertension : No BMI Greater Than 35 kg/m2 : Yes Age over 50 Years Old : No Neck Circumference Greater Than 40 cm : Yes Gender Male : No STOP-BANG Sleep Apnea Risk Level Score : 2 Cheyenne Walker Rn - 11/14/2020 13:03 EDT Itm[place] Scale Timothy Sensory Perception : No impairment Timothy Moisture : Rarely moist Timothy Activity : Walks frequently Timothy Mobility : No limitation Timothy Nutrition : Adequate Timothy Friction and Shear : No apparent problem Timothy Score : 22 Cheyenne Walker Rn - 11/14/2020 13:03 EDT Fall Risk Scales ABCs Fall Injury Risk [...] Scale Risk Level : 0-24 Low Risk [place] Fall Interventions : Adequate lighting, Bed in low position, Call device within reach, Non-slip footwear, Wheels locked Cheyenne Walker Rn - 11/14/2020 13:03 EDT Valuables and Belongings Valuables and Belongings : Clothing Clothing : Common streetwear Clothing Disposition : Bedside Cheyenne Walker Rn - 11/14/2020 13:03 EDT documented in this encounter Plan of Treatment Not on file documented as of this encounter Visit Diagnoses Not on filedocumented in this encounter
--- OUTSIDE RECORDS SUMMARY | 2024-08-05 19:12 | XMS_ITS | Encounter Summary ---
Author Organization [employer] Address [address] [place] [address] Care Team Providers Care Farmworker Diversified Crops Name Role Phone Unavailable Primary Care Provider Unavailabl e Encounter Details Date Type Department Care Team (Late st Contact Info) Description 03/18/2021 Transcribed Document [facility] [place] [address] [place] [address] ProviderCindi MD [address] [place] [address] Social History Tobacco Use Types Packs/Day Years Used Date Smoking Tobacco: Never Assessed Comments Unknown Sex and Gender Information Value Date Recorded Sex Assigned at Not on file Legal Sex Female 7:24 PM CDT Gender Identity Not on file Sexual Orientation Not on file documented as of this encounter Miscellaneous Notes * Cerner Conversion Note - Historical ProviderMD - 03/18/2021 1:08 PM [employer]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 Nausea and dry heaves and belching with cold liquids this morning but warm and room temp liquids seem to be going down better. Has ambulated. No dyspnea or chest pain. No fevers or chills. Intake & Output Intake & Output Totals Last 24 Hours (7a-7a) Intake (36 Events) Continuous Infusions (1950 mL) Medications (170.7 mL) Oral Intake (240 mL) Surgical Services Intake (1500 mL) Output (4 Events) Urine Voided (Volume) (1325 mL) Input Total: 3860.7 mL Output Total: 1325 mL Balance: 2535.7 mL Vital Signs T: 36.3 ??C TMIN: 36.3 ??C TMAX: 37.1 ??C HR: 74(Monitored) RR: 16 BP: 140/85 SpO2: 100% HT: 162.56 cm WT: 123.64 kg BMI: 46.8 Physical Exam Gen: NAD, on RA Resp: Nonlabored respirations CV: Normal peripheral perfusion Abd: soft, morbidly obese, ATTP, dressings c/d/i VTE Risk Total Score VTE Prophylaxis - Surgical Enoxaparin 40 mg, SubCutaneous, Inj, [id number], Routine, Start 03/18/21 6:30:00 EST, 03/17/21 11:15:00 EST (JAYASHREE RIVERA) Sequential Compression Device Start: 03/17/21 10:45:00 EST, Bilateral, Length: Knee High, Remove when ambulating, Continuous Order (JAYASHREE RIVERA) Sequential Compression Device Start: 03/17/21 10:45:00 EST, Bilateral, Length: Knee High, Replace when in bed, Continuous Order (JAYASHREE RIVERA) Assessment/Plan POD1 s/p sleeve gastrectomy- doing fairly well. - Continue pain control with oral meds - Encourage incentive spirometry and ambulation - Bariatric clears as tolerated - If tolerates clears this afternoon without n/v, likely d/c home this PM - f/u in bariatric clinic next week 1. Morbid obesity due to excess calories E66.01, Morbid (severe) obesity due to excess calories E66.01, Morbid (severe) obesity due to excess calories E66.01 Medications Inpatient Benadryl, 12.5 mg= 0.25 mL, IV Push, Q6H, PRN Dilaudid, 0.5 mg= 0.5 mL, IV Push, Q3H, PRN FLUoxetine, 20 mg= 1 Cap, Oral, At Bedtime gabapentin, 300 mg= 1 Cap, Oral, TID hydrALAZINE, 10 mg= 0.5 mL, IV Push, Q6H, PRN ketorolac, 15 mg= 0.5 mL, IV Push, Q6H Lovenox, 40 mg= 0.4 mL, SubCutaneous, [id number] Mylicon, 80 mg= 1 Tab, Oral, Q4H, PRN NaCl 0.9% bolus, 500 mL, IV Piggyback, 1-Time, PRN [place] 7.5 mg-325 mg oral tablet, 2 Tab, Oral, Q4H, PRN [place] 7.5 mg-325 mg oral tablet, 1 Tab, Oral, Q4H, PRN Phenergan, 12.5 mg= 0.5 mL, IV Push, Q6H, PRN Protonix, 40 mg, IV Push, Daily ropivacaine 0.5% injectable solution 25 mL + EPINEPHrine-lidocaine 1:100,000-1% injectable solution Sodium Chloride 0.45% intravenous solution 1,000 mL, 1000 mL, IntraVENous Zofran, 4 mg= 2 mL, IV Push, [...] Routine Labs - Last 24 Hours MAR 18 03:39 138 106 9 / 80 4.2 24 0.60 \ Anion Gap: 12 Calcium Level: 8.2 mg/dL Low Imaging Results (Last 24 Hours) No Radiology [...]
--- OUTSIDE RECORDS SUMMARY | 2024-08-05 19:12 | XMS_ITS | Encounter Summary ---
Author Organization [employer] Address [address] [place] [address] Care Team Providers Care Track Broom Operator Name Role Phone Unavailable Primary Care Provider Unavailabl e Encounter Details Date Type Department Care Team (Late st Contact Info) Description 03/17/2021 Transcribed Document [facility] [place] Family Medicine [facility] [place] [address] ProviderCindi MD [address] [place] [address] Social History Tobacco Use Types [...] - Historical ProviderMD - 03/17/2021 7:52 AM [facility] Main OR PreOp Summary Primary Physician: JAYASHREE RIVERA MD-GEN Finalized Date/Time: 03/20/21 15:28:35 Pt. Name: SHERI MCGHEE/Sex: 1990 Female Med Rec #: [id number] Physician: JAYASHREE RIVERA MD-GEN Financial #: [id number] Pt. Type: I Room/Bed: 8/1 Admit/Disch: 03/17/21 04:55:00 - 03/19/21 10:44:00 Institution: [facility] [place] PreOp Case Times Entry 1 In Preop 03/17/21 05:30:00 Ready for Holding n/a Room Patient Ready for 03/17/21 06:25:00 Surgery Patient Out of Preop 03/17/21 07:26:00 Patient Out of n/a Holding Room Last Modified By: Sheryl Mckeon RN 03/17/21 08:29:26 SJWaldo PreOp Case Times Audit 03/17/21 08:29:26 Certified Novell Engineer: NAT Modifier: NAT <+> 1 Patient Out of Preop Finalized By: Kendra Potter, Service Car Driver-Nursing Document Signatures Signed By: Sheryl Mckeon RN 03/17/21 08:29 Kendra Potter, Service Car Driver-Nursing 03/20/21 15:28 Unfinalized History Date/Time Username Reason for Unfinalizing Freetext Reason for Unfinalizing 03/20/21 15:28 [id number] Modify Pick List documented in this encounter Plan of Treatment Not on file documented as of this encounter Visit Diagnoses Not on filedocumented in this encounter
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
--- OUTSIDE RECORDS SUMMARY | 2024-08-05 19:12 | XMS_ITS | Encounter Summary ---
Author Organization [employer] Address [address] [place] [address] Care Team Providers Care Director Of Sustainability Name Role Phone Unavailable Primary Care Provider Unavailabl e Encounter Details Date Type Department Care Team (Late st Contact Info) Description 11/14/2020 Transcribed Document [facility] [place] Family Medicine [address] [place] [address] ProviderCindi MD [address] [place] [address] Social History Tobacco Use Types Packs/Day Years Used Date Smoking Tobacco: Never Assessed Comments Unknown Sex and Gender Information Value Date Recorded Sex Assigned at Not on file Legal Sex Female 7:24 PM CDT Gender Identity Not on file Sexual Orientation Not on file documented as of this encounter Miscellaneous Notes * Cerner Conversion Note - Cindi Padgett MD - 11/14/2020 2:12 [place] [address] SHERI MCGHEE :1990 Visit Time:11/14/2020 What to do next Your Diagnosis Gastro-esophageal reflux disease without esophagitis, Gastro-esophageal reflux disease without esophagitis Follow-Up Appointments Follow Up with JAYASHREE RIVERA MD When Only if needed Where: [facility] [place] [address]- Medications Take your medications faithfully. Do NOT skip [...] Please dispose of unused and medications per pharmacy guidance. Education Materials Hiatal Hernia A hiatal hernia occurs when [...] symptoms. ??? Medicines. These may include: ? Phko-sjm-tngwukx antacids. ? Medicines that make your stomach [...] ? Fatty foods, like fried foods. ? [place] fruits, like oranges or lemon. ? Other foods and drinks that contain acid, like orange juice or tomatoes. ? Spicy food. ? Chocolate. ??? Eat frequent small meals instead of three large meals a day. This helps prevent your stomach from getting too full. ? Eat slowly. ? Do not lie down right after eating. ? Do not eat 1???2 hours before bed. ??? Do not drink beverages with caffeine. These include cola, coffee, cocoa, and tea. ??? Do not drink alcohol. General instructions ??? Take peoi-iww-ntyokon and prescription medicines only as told by [...] provider. Document Revised: 01/24/2018 Document Reviewed: 09/16/2017 [employer] Patient Education ?? 2020 [employer]. ESOPHAGOGASTRODUODENOSCOPY Care After Read the instructions outlined [...] call your doctor. HOME CARE INSTRUCTIONS: ACTIVITY: ??? You may resume your regular activity tomorrow, but move at a slower pace for the next 24 hours. ??? Take frequent rest periods for the next 24 hours. ??? Walking will help get rid of the air and reduce the bloated feeling in your belly (abdomen). ??? No driving for 24 hours because of the medication (sedation) used during the test. ??? You may shower. ??? Do not sign any important legal documents or operate any machinery for 24 hours (because of the sedation used during the test). NUTRITION: ??? Drink plenty of fluids. ??? You may resume your normal diet or as instructed by your doctor ??? Begin with a light meal and progress to your normal diet. Heavy or fried foods are harder to digest and may make you feel sick to your stomach (nauseated). ??? Avoid alcoholic beverages for 24 hours or as instructed. MEDICATIONS: ??? You may resume your normal medications unless your doctor tells you otherwise. WHAT TO EXPECT TODAY: ??? Some feelings of bloating in the abdomen. ??? Excessive burping today and passage of more gas than usual. ??? A sore throat can be normal. Use throat lozenges or gargle with warm salt water and drink plenty of fluids. FINDING OUT THE RESULTS OF YOUR TEST: ??? Not all test results are available during your visit. If you had biopsies or other tests done during your procedure, you can make an appointment with your doctor to get the results. Sometimes you may be instructed to call the doctor???s office for your results. It is important for you to follow up on all of your test results. SEEK IMMEDIATE MEDICAL CARE IF: ??? You cannot eat or drink. ??? You have worsening throat or chest pain. ??? You have dizziness, lightheadedness, or you faint. ??? You have severe nausea or vomiting. ??? You have a fever greater than 101. ??? You have chills. ??? You have severe abdominal pain or discomfort that gets worse throughout the day. ??? You have black, tarry, or bloody stools. Monitored Anesthesia Care, Care After This sheet [...] eating solid foods. General instructions ??? Take bzqd-ntf-cfvxufq and prescription medicines only as told by [...] provider. Document Revised: 01/14/2020 Document Reviewed: 01/14/2020 [employer] Patient Education ?? 2020 [employer]. Emergency Awareness and Preventative Care STROKE is [...] Assistance with quitting is available by contacting 5-087-VZMA-NOW. This is a free resource providing counseling, [...] This Visit (last charted value for your 11/14/2020 visit) Hematology 11/14/2020 11:47 AM WBC: 6.3 K/uL -- Normal range between ( 3.9 and 10.0 ) RBC: 4.46 Million/uL -- Normal range between ( 3.93 and 5.22 ) Hct: 38.3 % -- Normal range between ( 34.1 and 44.9 ) Hgb: 12.7 Gram/dL -- Normal range between ( 11.2 and 15.7 ) Platelet Count: 246 K/uL -- Normal range between ( 163 and 369 ) MCH: 28.5 pg -- Normal range between ( 25.6 and 32.2 ) MCHC: 33.2 Gram/dL -- Normal range between ( 32.3 and 36.5 ) MCV: 85.9 fL -- Normal range between ( 79.0 and 94.8 ) Slide Review: No Eos %: 2.1 % -- Normal range between ( 1.0 and 7.0 ) Trego #: 0.37 K/uL -- Normal range between ( 0.24 and 0.82 ) Eos #: 0.13 K/uL -- Normal range between ( 0.04 and 0.54 ) Trego %: 5.9 % -- Normal range between ( 4.7 and 12.5 ) Baso %: 0.5 % -- Normal range between ( 0.0 and 1.0 ) Baso #: 0.03 K/uL -- Normal range between ( 0.01 and 0.08 ) RDW: 12.3 % -- Normal range between ( 11.6 and 14.4 ) Neut %: 62.1 % -- Normal range between ( 34.0 and 71.0 ) Neut #: 3.91 K/uL -- Normal range between ( 1.56 and 6.13 ) Lymph %: 29.1 % -- Normal range between ( 19.3 and 53.0 ) Lymph #: 1.83 K/uL -- Normal range between ( 1.18 and 3.74 ) MPV: 9.6 fL -- Normal range between ( 9.4 and 12.4 ) IG#: 0 x10(3)/uL IG%: 0 % -- Normal range between ( 0 and 1 ) Microbiology 11/10/2020 10:30 AM SARS-CoV-2 (COVID19 PCR): Negative General Chemistry 11/14/2020 11:48 AM Hgb A1C: 5.20 % -- Normal range between ( 4.20 and 6.30 ) eAVG Glucose: 103 mg/dL 11/14/2020 11:47 AM Creatinine Level: 0.65 mg/dL -- Normal range between ( 0.55 and 1.02 ) Sodium Level: 141 mmol/L -- Normal range between ( 136 and 146 ) Potassium Level: 4.0 mmol/L -- Normal range between ( 3.5 and 5.1 ) Chloride Level: 105 mmol/L -- Normal range between ( 102 and 112 ) Carbon Dioxide Level: 29 mmol/L -- Normal range between ( 21 and 32 ) Anion Gap: 11 -- Normal range between ( 9 and 20 ) Bilirubin Total: 0.5 mg/dL -- Normal range between ( 0.2 and 1.3 ) A/G Ratio: 1.3 -- Normal range between ( 1.1 and 2.5 ) ALT: 18 Units/Liter -- Normal range between ( 12 and 78 ) AST: 10 Units/Liter -- Normal range between ( 5 and 37 ) Globulin: 3.2 Gram/dL -- Normal range between ( 1.5 and 4.5 ) Alk Phos: 108 Units/Liter -- Normal range between ( 27 and 136 ) Bun/Creatinine: 21.5 -- Normal range between ( 8.0 and 20.0 ) Calcium Level: 9.0 mg/dL -- Normal range between ( 8.5 and 10.1 ) eGFR : >60 mL/min/1.73m2 eGFR NonAfrican: >60 mL/min/1.73m2 Glucose Level: 77 mg/dL -- Normal range between ( 74 and 106 ) Blood Urea Nitrogen: 14 mg/dL -- Normal range between ( 7 and 22 ) Protein Total: 7.3 Gram/dL -- Normal range between ( 6.4 and 8.2 ) Albumin Level: 4.1 Gram/dL -- Normal range between ( 3.4 and 5.0 ) Coagulation 11/14/2020 11:48 AM INR: 1.0 -- Normal range between ( 0.9 and 1.1 ) PTT: 27.4 Second(s) -- Normal range between ( 24.2 and 31.8 ) PT: 10.0 Second(s) -- Normal range between ( 9.6 and 11.5 ) Lipid Studies 11/14/2020 11:48 AM Cholesterol Tot: 112 mg/dL -- Normal range between ( 0 and 199 ) Cholesterol HDL: 61.0 mg/dL Cholesterol LDL Calculation: 40.0 mg/dL -- Normal range between ( 0.0 and 99.0 ) Cholesterol VLDL Calculation: 11.0 mg/dL -- Normal range between ( 5.0 and 40.0 ) Cholesterol/HDL Ratio: 1.8 -- Normal range between ( 0.0 and 3.2 ) Triglyceride: 55 mg/dL -- Normal range between ( 0 and 249 ) LDL/HDL Ratio: 0.7 -- Normal range between ( 0.0 and 3.2 ) Endocrinology 11/14/2020 11:48 AM TSH: 1.970 mcInt Units/mL -- Normal range between ( 0.358 and 3.740 ) T4 Total: 9.0 mcg/mL -- Normal range between ( 4.8 and 13.9 ) Patient Name:SHERI MCGHEE MERYL I have received this information and was given the opportunity to ask questions. Patient/High Heel Builder Name: Patient/High Heel Builder Signature: Relationship to Patient: Clinician/Hospital High Heel Builder Signature: Date: Electronically signed by Navin, [facility] Conversion Biology Professor Cerner at 06/13/2022 12:56 PM CDT documented in this encounter Plan of Treatment Not on file documented as of this encounter Visit Diagnoses Not on filedocumented in this encounter
--- OUTSIDE RECORDS SUMMARY | 2024-08-05 19:13 | XMS_ITS | Encounter Summary ---
Author Organization [employer] Address [address] [place] [address] Care Team Providers Care Laborer Bituminous Paving Name Role Phone Unavailable Primary Care Provider Unavailabl e Encounter Details Date Type Department Care Team (Late st Contact Info) Description 03/18/2021 Transcribed Document [facility] [place] [address] [place] [address] ProviderCindi MD [address] [place] [address] Social History Tobacco Use Types Packs/Day Years Used Date Smoking Tobacco: Never Assessed Comments Unknown Sex and Gender Information Value Date Recorded Sex Assigned at Not on file Legal Sex Female 7:24 PM CDT Gender Identity Not on file Sexual Orientation Not on file documented as of this encounter Miscellaneous Notes * Cerner Conversion Note - Historical ProviderMD - 03/18/2021 5:00 AM [employer] Chart Check - Review Order Profile Entered On: 03/18/2021 3:34 EST Performed On: 03/18/2021 5:00 EST by Risa Iqbal RN Chart Check Powerplans Initiated/Discontinued as Appropriate : Yes All Active Orders Reviewed : Yes Risa Iqbal RN - 03/18/2021 3:34 EST documented in this encounter Plan of Treatment Not on file documented as of this encounter Visit Diagnoses Not on filedocumented in this encounter
--- OUTSIDE RECORDS SUMMARY | 2024-08-05 19:13 | XMS_ITS | Encounter Summary ---
Author Organization [employer] Address [address] [place] [address] Care Team Providers Care Seed Packer Name Role Phone Unavailable Primary Care Provider Unavailabl e Encounter Details Date Type Department Care Team (Late st Contact Info) Description 03/18/2021 Transcribed Document [facility] [place] [facility] [place] [address] ProviderCindi MD [address] [place] [address] Social History Tobacco Use Types Packs/Day Years Used Date Smoking Tobacco: Never Assessed Comments Unknown Sex and Gender Information Value Date Recorded Sex Assigned at Not on file Legal Sex Female 7:24 PM CDT Gender Identity Not on file Sexual Orientation Not on file documented as of this encounter Miscellaneous Notes * Cerner Conversion Note - Historical ProviderMD - 03/18/2021 12:00 AM KET[employer] Pain Assessment Entered On: 03/18/2021 3:33 EST Performed On: 03/18/2021 0:28 EST by Risa Iqbal RN Intervention Information: ketorolac Performed by Simona Arias RN on 03/17/2021 23:58:00 EST ketorolac,15mg IV Push,Peripheral Line 1 Pain Assessment Pain Assessment : Follow-up assessment Pain Scale Goal : 4 Pain Scale Used : 0-10 Scale Location : Abdominal Onset : Gradual Quality : Aching Pain Radiation : No Pain Worsened by : Movement Pain Intervention, Drug : Medicated Opioid Adverse Effects : Not applicable Risa [...]
--- OUTSIDE RECORDS SUMMARY | 2024-08-05 19:13 | XMS_ITS | Clinical Summary ---
Author Organization [employer] Address [address] [place] [address] Care Team Providers Care Resourcing Consultant Name Role Phone Unavailable Primary Care Provider [...]
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
--- OUTSIDE RECORDS SUMMARY | 2024-08-05 19:13 | XMS_ITS | Encounter Summary ---
Author Organization [employer] Address [address] [place] [address] Care Team Providers Care Demolitionist Name Role Phone Unavailable Primary Care Provider Unavailabl e Encounter Details Date Type Department Care Team (Late st Contact Info) Description 03/18/2021 Transcribed Document [facility] [place] [facility] [place] [address] ProviderCindi MD [facility] [place] [address] Social History Tobacco Use Types Packs/Day Years Used Date Smoking Tobacco: Never Assessed Comments Unknown Sex and Gender Information Value Date Recorded Sex Assigned at Not on file Legal Sex Female 7:24 PM CDT Gender Identity Not on file Sexual Orientation Not on file documented as of this encounter Miscellaneous Notes * [employer] Conversion Note - Historical ProviderMD - 03/18/2021 9:14 AM SALES OPERATIONS ASSISTANT On Going Discharge Planning Entered On: 03/18/2021 9:15 EST Performed On: 03/18/2021 9:14 EST by Zahraa Lee Rn Care Management Progress Note Discharge Arrangements : Patient Post-Acute Information Patient Name: SHERI MCGHEE Gender: Female : [birth year] Age: 30 Years No Post-Acute Placement(s) Listed No Post-Acute Service(s) Listed No Curaspan Referral(s) Listed Discharge Options Discussed with Patient : Other: CHART Barriers to Discharge Identified : Clinical Condition of Patient Barriers to Discharge Unresolved : Clinical Condition of Patient Patient Discharge Goal : Home Patient Offered Choice/Affiliations Explained : No Designation of Choice Signed : No List/Info Provided Pt/Fam/Support Person : Other: NA Were Referrals Sent to Post Acute Providers : No Does the Patient have a Floor to SNF Benefit? : No Is the Patient Meeting Medical Necessity : Yes Did you Attend Multidisciplinary Rounds? : Yes Zahraa Lee Rn - 03/18/2021 9:14 EST Narrative Progress Note Narrative Progress Note : 30yo female patient admitted s/p [...]
--- OUTSIDE RECORDS SUMMARY | 2024-08-05 19:13 | XMS_ITS | Encounter Summary ---
Author Organization [employer] Address [address] [place] [address] Care Team Providers Care Superintendent Plant Name Role Phone Unavailable Primary Care Provider Unavailabl e Encounter Details Date Type Department Care Team (Late st Contact Info) Description 03/18/2021 Transcribed Document [facility] [place] [address] [place] [address] ProviderCindi MD [address] [place], [place] [address] Social History Tobacco Use Types Packs/Day Years Used Date Smoking Tobacco: Never Assessed Comments Unknown Sex and Gender Information Value Date Recorded Sex Assigned at Not on file Legal Sex Female 7:24 PM CDT Gender Identity Not on file Sexual Orientation Not on file documented as of this encounter Miscellaneous Notes * [employer] Conversion Note - Historical ProviderMD - 03/18/2021 6:00 PM TONE REGULATOR Pain Assessment Entered On: 03/18/2021 18:55 EST Performed On: 03/18/2021 18:45 EST by Jewell Vega RN-PATIENT CARE BEDSIDE NON-EXEMPT Intervention Information: ketorolac Performed by Jewell Vega RN-PATIENT CARE BEDSIDE NON-EXEMPT on 03/18/2021 18:15:00 EST ketorolac,15mg IV Push,Right Antecubit Amber Pain Assessment Pain Assessment : Follow-up assessment Pain Scale Goal : 4 Pain Improved by Intervention : Yes Jewell Vega RN-PATIENT CARE BEDSIDE NON-EXEMPT - 03/18/2021 18:55 EST documented in this encounter Plan of Treatment Not on file documented as of this encounter Visit Diagnoses Not on filedocumented in this encounter
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
--- OUTSIDE RECORDS SUMMARY | 2024-08-05 19:13 | XMS_ITS | Encounter Summary ---
Author Organization [employer] Address [address] [place] [id number] Care Team Providers Care Solder Technician Name Role Phone Unavailable Primary Care Provider Unavailabl e Encounter Details Date Type Department Care Team (Late st Contact Info) Description 03/17/[address] 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 Adult Entered On: 03/17/2021 6:16 EST Performed On: 03/17/2021 6:14 EST by Sheryl Mckeon RN Vital Measurements Temperature Source : Oral Temperature Mode : Fahrenheit Temperature, Fahrenheit : 98.8 Deg F Clinical Temperature, C : 37.1 Deg C Pulse Method : Pulse Oximetry Peripheral Pulse Rate : 57 bpm (LOW) Pulse Rhythm : Regular Respiratory Rate : 16 Breaths/Min Blood Pressure Location : Arm, left upper Blood Pressure Source : Non-Invasive BP Device Blood Pressure Position : Sitting Systolic Blood Pressure : 129 mmHg Diastolic Blood Pressure : 74 mmHg Oxygen Saturation : 99 % Oxygen Therapy Mode : Room air Sheryl Mckeon RN - 03/17/2021 6:14 EST Pain Assessment Pain Assessment : Initial assessment Pain Scale Goal : 4 Pain Scale Used : 0-10 Scale Sheryl Mckeon RN - 03/17/2021 6:14 EST Height and Weight, Clinical Dosing Height Source : Chart Height Entry Format : [place] Height, Feet : 5 ft(Converted to: 152 cm, 60 Inch) Height, Inches : 4 Inch(Converted to: 0 ft 4 Inch, 10.16 cm) Clinical Height : 162.56 cm Weight Source : Standing scale Weight Entry Format : [place] Clinical Dosing Weight : 123.64 kg Weight, Pounds : 272 lb Body Surface Area (BSA) : 2.23 m2 Body Mass Index : 46.8 kg/m2 (>HHI) [place] Body Weight : 54 kg Sheryl Mckeon RN - 03/17/2021 6:14 EST Health Histories Smoking Status : Never (less than 100 in lifetime; none in last 30 days) Smokeless Tobacco Status : Never Sheryl Mckeon RN - 03/17/2021 6:14 EST Social History (As Of: 03/17/2021 06:16:50 EST) Tobacco: Never (less than 100 in [...] Patient Vaccinated for COVID-19 : Fully vaccinated Sheryl Mckeon RN - 03/17/2021 6:14 EST Infectious Disease Risk Screening Grid Cough < 2 wks of unknown origin : NO Cough > 2 weeks : NO Blood in Sputum : NO Fever or self-reported Fever : NO Rash of unknown origin : NO Headache : NO Stiff neck : NO Night Sweats : NO Unexplained Weight Loss : NO Diarrhea (3 episode per day) : NO Sheryl Mckeon RN - 03/17/2021 6:14 EST Physical contact outside [place] in the last 30 days : No Hospitalized in Foreign Country : No Infectious Disease History : Influenza, Meningitis, Other: Covid 02/2020 INF Disease TB Screening Calc : 0 INF Disease Recent Travel Calc : 0 Sheryl Mckeon RN - 03/17/2021 6:14 EST COVID19 PreProcedure Screening Is this an Emergent or Add on Procedure? : No Date PreProcedure COVID-19 test known? : Yes Date of PreProcedure COVID-19 : 03/14/2021 EST Has patient been isolated since the test : Yes Exposed to COVID19 symptoms since test? : No Sheryl Mckeon RN - 03/17/2021 6:14 EST Anesthesia/Transfusion History Family History of Anesthesia Reaction : No prior transfusion(s) Transfusion History : Prior anesthesia without reaction Family History of Anesthesia Reaction : None Sheryl Mckeon RN - 03/17/2021 6:14 EST Advance Directive Patient has Advance Directive *Q : No, patient refuses Advance Directive information Sheryl Mckeon RN - 03/17/2021 6:14 EST Spiritual/Cultural Needs Any Spiritual/Cultural Needs or Requests : No Sheryl Mckeon RN - 03/17/2021 6:14 EST [place] Suicide Severity Rating Scale (C-SSRS) CSSRS Past Month Wish to be : No CSSRS Past Month Suicidal Thoughts : No CSSRS Lifetime Suicide Behavior : No Suicide Severity Rating Score : 0 Suicide Severity Rating : No Additional Care Required at this time Sheryl Mckeon RN - 03/17/2021 6:14 EST Psychosocial History Do You Have a History of the Following? : Anxiety, Depression Currently in Unsafe Situation : No Sheryl Mckeon RN - 03/17/2021 6:14 EST Teaching/Learning Assessment Barriers To Learning : None evident Individuals Taught : Patient Readiness to Learn : Cooperative Baseline Knowledge of Topic : Good Readiness to Learn : Explanation, Printed materials Learning Style Preferences Patient : Printed materials, Verbal explanation Learning Style Preferences Family : Printed materials, Verbal explanation Sheryl Mckeon RN - 03/17/2021 6:14 EST Education Topics, Periop Preadmission Perioperative Education Grid IV's : Verbalizes understanding NPO Status/Directions : Verbalizes understanding Responsible Adult : Verbalizes understanding Sheryl Mckeon RN - 03/17/2021 6:14 EST General Info Want Family/Rep/Phys Notified of Admit : No Emergency Contact #1 : Garry Emergency Contact #1 Emergency Contact #1 Relationship : spouse Emergency Contact #2 : . Emergency Contact #2 Phone Number : .. Emergency Contact #2 Relationship : . Primary Language : Romanian Communication Barrier : None Material Controller Needed : No Sheryl Mckeon RN - 03/17/2021 6:14 EST Timothy Scale Timothy Sensory Perception : No impairment Timothy Moisture : Rarely moist Timothy Activity : Walks frequently Timothy Mobility : No limitation Timothy Nutrition : Adequate Timothy Friction and Shear : No apparent problem Timothy Score : 22 Sheryl Mckeon RN - 03/17/2021 6:14 EST Sleep Apnea Risk Assmt Hx of [...] Sleep Apnea Risk Level Score : 2 Sheryl Mckeon RN - 03/17/2021 6:14 EST Pain Scale Intensity : 0 Sheryl Mckeon RN - 03/17/2021 6:14 EST Image 4 - Images currently included in the form version of this document have not been included in the text rendition version of the form. documented in this encounter Plan of Treatment Not on file documented as of this encounter Visit Diagnoses Not on filedocumented in this encounter
--- NOTE | 2024-08-05 19:14 | PC.NURSE ---
Blood glucose finger stick was 100.
--- NOTE | 2024-08-05 19:14 | HMH.EDCP ---
Discharge Plan Disposition Patient Disposition: Home, Self-Care Condition: Good Prescriptions Prescriptions: New hydroxyzine pamoate 25 mg capsule 25 mg PO Q8H PRN (Reason: panic attack(s)) Qty: 20 0RF No Action omeprazole 20 MG tablet,delayed release (DR/EC) 20 mg PO DAILY fluoxetine 20 MG tablet 20 mg PO HS Referrals Follow up/Referrals: Provider,Referral, [Referring, Medical] - See instructions Activity Restrictions/Add. Instructions Additional Instructions/Restrictions: You were evaluated in the emergency department today. At this time, we feel symptoms are likely result of a panic attack. Your workup is reassuring. Please follow-up closely with your primary care provider. Return to the emergency department for new or worsening symptoms Clinical Impressions Clinical Impression: Panic attack, Syncope Stand Alone Forms Stand Alone Forms: Work/School Release Instructions Patient Instructions: DI for Syncope in Adults (Fainting), Anxiety and Panic Attacks (Alternative Therapy), DI for Panic Disorder Print Language Print Language: Wolof Discharge ED Provider: Danyelle Jones HPI General Chief Complaint: Anxiety Stated Complaint: Anxiety Time Seen by Provider: 08/05/24 19:06 History of Present Illness HPI narrative: This patient is a 33-year-old female with a history of anxiety, GERD, prior gastric sleeve in 2021, who is currently on Ozempic for weight loss presenting to the emergency department for evaluation with concern for syncopal episode, chest tightness, clenching all of her entire body, and numbness everywhere. She states that it feels like she is paralyzed. She has by EMS who noted that the patient had pulled over because she felt she was going to pass out, and bystanders came upon her car to find her unconscious in it. Then at that she was out very briefly and was alert and oriented immediately after waking up. No loss of bladder or bowel function, no tongue biting, no noted concerns for seizure activity. They note that she was very anxious appearing with hyperventilation and carpopedal spasms, vitals were stable en route. Shortly after arrival, patient kept hyperventilating, already experiencing, pedal spasms, and then subsequently lost consciousness yet again. No seizure activity noted. She came to and was alert and oriented right after. She denies experiencing like this in the past. She states that what she remembers is leaving from eating and driving, when she started feeling very nauseated and lightheaded. She notes that that is all that she remembers prior to EMS getting there. She states that right now she feels like she is having cramping and pain all over and physic her chest is very heavy. She denies any other concerns or complaints. Of note, she did stop Ozempic for several months and started again about 2 weeks ago. Related Data Home Medications ?Medication ?Instructions ?Recorded ?Confirmed fluoxetine 20 mg tablet 20 mg PO HS Depression 04/27/21 04/27/21 omeprazole 20 mg tablet,delayed 20 mg PO DAILY GERD 04/27/21 04/27/21 release Previous Rx's ?Medication ?Instructions ?Recorded hydroxyzine pamoate 25 mg capsule 25 mg PO Q8H PRN panic attack(s) 08/05/24 #20 caps Allergies Allergy/AdvReac Type Severity Reaction Status Date / Time No Known Allergies Allergy Verified 03/27/17 13:54 [facility] Disclaimer: The information contained in this section may have been updated after the patient was seen, as this information can be updated by other users. Social History Smoking Status: Current every day smoker tobacco type: cigarettes alcohol intake: current alcohol intake frequency: holidays/special occasions only current occupational status: employed Travel in the last 8 weeks?: None Other Medical History Have you received the Flu Vaccine for this season: No Have you received the Pneumonia Vaccine: No ROS Obtained: Yes All systems reviewed & no additional complaints except as documented Physical Exam General General appearance: alert and anxious Comment: Hyperventilating, carpopedal spasms Head Head exam: atraumatic and normocephalic Eye Eye exam: Present normal appearance, PERRL and EOMI ENT ENT exam: Present mucous membranes dry and normal external ear exam Neck Neck exam: Present normal inspection, full ROM and trachea midline; Absent tenderness Chest Chest inspection: Present normal inspection and symmetric chest wall rise; Absent tenderness Respiratory Respiratory exam: Present normal lung sounds bilaterally; Absent respiratory distress, wheezes, stridor or accessory muscle use Cardiovascular Cardiovascular exam: Present normal rhythm and tachycardia Abdominal Exam Abdominal exam: Present soft; Absent distention, tenderness, guarding, rebound or rigidity Extremities Exam Extremities exam: Present normal inspection, full ROM and normal capillary refill; Absent tenderness or edema Back Exam Back exam: Present normal inspection and full ROM; Absent tenderness Neurological Exam Neurological exam: Present alert, oriented X3 and CN II-XII intact; Absent motor sensory deficit Psychiatric Psychiatric exam: Present anxious Skin Skin exam: Present warm and dry HEART Score HEART Score HEART Score assessment performed?: Yes History (anamnesis): Slightly suspicious ECG: Normal Age: <45 years Risk factors: No known risk factors Troponin: </= normal limit HEART Score: 0 Critical Care Critical Care Time Critical Care Time: Yes Attestation: On 08/05/24, the high probability of a clinically significant, sudden or life threatening deterioration of the following system(s) required my full and direct attention, intervention and personal management. The time I documented below is in addition to time spent performing reported procedures but includes the following listed in this critical care notation. Total Time Total Critical Care Time: 35 Medical Decision Making Regulo Inquiry Pt receiving controlled substance: No Vital Signs Vital Signs: 08/05/24 19:15 08/05/24 19:20 08/05/24 19:30 Temperature 98.7 F Temperature Source Oral Pulse Rate 104 H 78 Pulse Rate [Left] 101 H Respiratory Rate 15 17 13 Blood Pressure 134/72 122/75 Blood Pressure [Left Arm] 134/72 Blood Pressure Mean [Left Arm] 92 02 Sat by Pulse Oximetry 100 100 100 Oxygen Delivery Method Room Air 08/05/24 20:00 08/05/24 20:30 08/05/24 21:00 Temperature Temperature Source Pulse Rate 80 Pulse Rate [Left] Respiratory Rate 14 13 23 Blood Pressure 124/81 136/81 123/83 Blood Pressure [Left Arm] Blood Pressure Mean [Left Arm] 02 Sat by Pulse Oximetry 98 Oxygen Delivery Method 08/05/24 21:30 08/05/24 21:39 08/05/24 22:00 Temperature Temperature Source Pulse Rate 82 74 82 Pulse Rate [Left] Respiratory Rate 11 L 19 12 Blood Pressure 122/80 134/77 123/74 Blood Pressure [Left Arm] Blood Pressure Mean [Left Arm] 02 Sat by Pulse Oximetry 98 99 100 Oxygen Delivery Method 08/05/24 22:30 08/05/24 23:00 08/05/24 23:19 Temperature 97.8 F Temperature Source Oral Pulse Rate 82 79 86 Pulse Rate [Left] Respiratory Rate 18 13 16 Blood Pressure 133/84 118/68 118/68 Blood Pressure [Left Arm] Blood Pressure Mean [Left Arm] 02 Sat by Pulse Oximetry 98 100 Oxygen Delivery Method Lab Data Labs: Lab Results 08/05/24 19:06: VBG pH 7.58 H, VBG pCO2 22.9 L, VBG pO2 36.5, VBG HCO3 21.0 L, VBG Total CO2 21.7 L, VBG O2 Saturation 82.5 H, VBG Base Excess -0.9, VBG Lactic Acid 3.1 H 08/05/24 19:09: WBC 8.9, RBC 4.47, Hgb 13.1, Hct 37.9, MCV 84.8, MCH 29.3, MCHC 34.6, RDW 12.4, Plt Count 284, MPV 9.8, Neut % (Auto) 72.7, Lymph % (Auto) 20.2, [place] % (Auto) 5.4, Eos % (Auto) 0.8, Baso % (Auto) 0.7, Neut # (Auto) 6.5, Lymph # (Auto) 1.8, [place] # (Auto) 0.5, Eos # (Auto) 0.1, Baso # (Auto) 0.1, D-Dimer 0.49, Sodium 135 L, Potassium 3.6, Chloride 104, Carbon Dioxide 22, Anion Gap 12.6, BUN 14, Creatinine 1.00, Estimated Creat Clear 93, Estimated GFR 65, Est GFR ( Amer) 78, Glucose 107 H, Calcium 10.5 H, Total Bilirubin 1.1, AST 23, ALT 16, Alkaline Phosphatase 62, Troponin I < 0.01, Total Protein 7.4, Albumin 4.5, Globulin 2.9, Albumin/Globulin Ratio 1.6, Lipase 79, TSH 1.63, Thyroxine (T4) 10.9, Serum HCG, Qual Negative, Salicylates < 1.0 L, Acetaminophen < 10 L, Plasma/Serum Alcohol < 10 08/05/24 20:14: Urine Color Yellow, Urine Appearance Clear, Urine pH 7.5, Ur Specific [place] 1.015, Urine Protein Negative, Urine Glucose (UA) Negative, Urine Ketones 3+, Urine Blood Negative, Urine Nitrate Negative, Urine Bilirubin Negative, Urine Urobilinogen 2.0, Ur Leukocyte Esterase Negative, Urine RBC 3-5, Urine WBC 10-20, Ur Squamous Epith Cells 20-50, Urine Bacteria 3+, Urine Yeast 1+, Urine Opiates Screen Negative, Urine Methadone Screen Negative, Ur Barbituates Screen Negative, Ur Phencyclidine Scrn Negative, Ur Amphetamines Screen Negative, U Benzodiazepines Scrn Negative, Urine Cocaine Screen Negative, U Marijuana (THC) Screen Negative 08/05/24 22:22: Troponin I < 0.01 08/05/24 19:09 08/05/24 19:09 Response Orders (Tests/Meds): ED MEDICATIONS Discontinued Medications Generic Name Dose Route Start Last Admin Trade Name Freq PRN Reason Stop Dose Admin Lactated Ringer's 1,000 mls @ 999 mls/hr 08/05/24 19:08 08/05/24 19:23 Lactated Ringer's 1000 Ml Bag IV 08/05/24 20:08 999 mls/hr .Q1H1M ONE Administration Lorazepam 1 mg 08/05/24 19:08 08/05/24 19:22 Lorazepam 2mg/Ml Vial IV 08/05/24 19:09 1 mg ONCE ONE Administration Sodium Chloride 10 ml 08/05/24 19:08 Sodium Chloride 0.9% 10ml Vial IV 09/04/24 19:07 NEEDED PRN to Dilute Lorazepam inj ORDERS Category Date Time Status Acetaminophen Stat Lab 08/05/24 19:09 Completed Complete Blood Count Auto Diff Stat Lab 08/05/24 19:09 Completed Comprehensive Metabolic Panel Stat Lab 08/05/24 19:09 Completed D-Dimer Stat Lab 08/05/24 19:09 Completed Ethyl Alcohol Stat Lab 08/05/24 19:09 Completed Lipase Stat Lab 08/05/24 19:09 Completed Salicylate Stat Lab 08/05/24 19:09 Completed Serum [HCG Qualitative, Serum] Stat Lab 08/05/24 19:09 Completed T4 (Thyroxine) Stat Lab 08/05/24 19:09 Completed TSH [Thyroid Stimulating Hormone] Stat Lab 08/05/24 19:09 Completed Trop I [Troponin I] Stat Lab 08/05/24 19:09 Completed Troponin I Q3H Lab 08/05/24 22:22 Completed UA [Urinalysis and Microscopic] Stat Lab 08/05/24 20:14 Completed UDS [Drug Screen,Urine] Stat Lab 08/05/24 20:14 Completed Urine Culture Stat Micro 08/05/24 20:14 Received VBG [Venous Blood Gas] Stat RT 08/05/24 19:06 Completed ECG Data Tracing #1: Attestation: I reviewed this ECG and interpreted as documented below: ECG Narrative: Sinus tachycardia with a ventricular rate of [address] changes concerning for ischemia. Some motion artifact given respiratory effort ECG initial impression date: 08/05/24 ECG initial impression time: 19:08 MDM Narrative Medical Decision Narrative: In summary, this patient is a 33-year-old female presenting to the Emergency Department for evaluation of syncopal episode, hyperventilation, chest tightness, carpopedal spasms. Differential diagnoses considered include but are not limited to panic attack, ACS, dysrhythmia, PE, seizure, vasovagal syncope, among others. Ruling out the most morbid conditions drove assessment. It should be noted patient's history includes anxiety and GERD which may not be at goal therapy. This complicates all aspects of care by increasing patient's risk for morbidity. On exam, the patient is very anxious appearing, hyperventilating with carpopedal spasms. She had another syncopal episode shortly after arrival, but no seizure activity noted. No tongue biting, no loss of bladder or bowel function. She came to immediately and was alert and oriented. No focal neurologic deficits noted on exam. She is tachycardic in the setting of anxiety and hyperventilation but otherwise vitals are reassuring with no hypoxia. Blood pressure is normal. Cardiopulmonary and abdominal exams are reassuring. I do not feel that she had any sort of seizure based on reassuring history and exam. I feel she likely is having a panic attack that has precipitated a respiratory alkalosis, triggering carpopedal spasms and syncopal episode. Workup included lab evaluation to evaluate for metabolic, toxic, and cardiac etiologies as well as EKG. Cannot use PERC criteria to exclude PE in the setting of syncope with her tachycardia and chest tightness, so I elected to obtain D-dimer. Patient was given IV Ativan as well as a bolus of IV fluids to assess for symptomatic improvement. On reassessment, the patient is resting company with resolution of symptoms after administration of Ativan and fluids. Labs demonstrated reassuring CBC. She does have significant respiratory alkalosis, consistent with her panic attack. Troponin negative x 2, D-dimer negative. Urinalysis not concerning for infection, it is gross contaminated with squamous cells. Ultimately, I feel the patient had a panic attack and is appropriate for discharge home with prescriptions for Vistaril and instructions for supportive care of panic attack. She was given instructions for close follow-up with primary care.
[2024-08-05 19:17] LABS: Basophils # 0.1 K/mm3 (0-0.2); Basophils % 0.7 % (0.1-2.0); Eosinophils # 0.1 Kmm3 (0.0-0.4); Eosinophils % 0.8 % (0.1-12.0); Hematocrit 37.9 % (37.0-47.0); Hemoglobin 13.1 g/dL (12.2-16.2); Immature Granulocytes # 0.02 10^3uL; Immature Granulocytes % 0.2 %; Lymphocytes # 1.8 K/mm3 (0.7-4.5); Lymphocytes % 20.2 % (10-50); Mean Corpuscular HGB Conc 34.6 g/dL (31.8-35.4); Mean Corpuscular Hemoglobin 29.3 pg (27.0-31.2); Mean Corpuscular Volume 84.8 fl (81-99); Mean Platelet Volume 9.8 fl (7.4-10.4); Monocytes # 0.5 K/mm3 (0.1-1.0); Monocytes % 5.4 % (1.7-9.3); Neutrophils # 6.5 K/mm3 (1.8-7.8); Neutrophils % 72.7 % (37.0-80.0); Nucleated Red Blood Cells # 0 10^3/uL; Nucleated Red Blood Cells % 0 %; Platelet Count 284 K/mm3 (142-424); Red Blood Count 4.47 M/mm3 (4.20-5.40); Red Cell Distribution Width 12.4 % (11.5-17.5); Red Cell Distribution Width-SD 37.7 fL; White Blood Count 8.9 K/mm3 (4.8-10.8)
[2024-08-05] MEDS: LORazepam 2MG/ML VIAL 1 MG IV (19:22)
[2024-08-05] MEDS: LACTATED RINGERS 1000ML 1,000 ML 999 ML IV (19:23)
--- NOTE | 2024-08-05 19:24 | PC.NURSE ---
Contacted RT r/t VBG sent to lab.
[2024-08-05 19:25] LABS: VBG Base Excess -0.9 mmol/L (-2.4-2.3); VBG Oxygen Saturation 82.5 % (50-70); VBG PO2 36.5 mmol/L (28-40); VBG Total CO2 21.7 mmol/L (23-27)
[2024-08-05 19:27] LABS: Lactate Venous 3.1 mmol/L (0.4-2.0); VBG PCO2 22.9 mmol/L (35-51); VBG PH 7.58 mmol/L (7.31-7.41)
--- NOTE | 2024-08-05 19:27 | PC.NURSE ---
PH 7.58 CO2 22.9 LA 3.1 critical results given to Cherise Jones
[2024-08-05 19:31] LABS: Alanine Aminotransferase 16 U/L (12-78); Albumin Level 4.5 g/dl (3.5-5.0); Albumin/Globulin Ratio 1.6 (1.1-1.8); Alkaline Phosphatase 62 U/L (38-126); Anion Gap 12.6 mEq/L (5-15); Aspartate Amino Transferase 23 U/L (14-36); Bilirubin,Total 1.1 mg/dl (0.2-1.3); Blood Urea Nitrogen 14 mg/dl (7-17); Calcium 10.5 mg/dl (8.4-10.2); Carbon Dioxide 22 mmol/L (22.0-30.0); Chloride 104 mmol/L (98-107); Creatinine Clearance Estimated 93 mL/min (50-200); Estimated Glomerular Filt Rate 65 ml/min (>60); GFR (African American) 78 ML/MIN (>60); Globulin 2.9 g/dL (1.3-3.2); Glucose 107 mg/dl (74-100); Potassium 3.6 mmoL/L (3.5-5.1); Sodium 135 mmol/L (136-145); Total Protein,Serum 7.4 g/dl (6.3-8.2)
[2024-08-05 19:34] LABS: Acetaminophen < 10 ug/ml (10-30); Salicylate < 1.0 mg/dL (2.0-20.0)
[2024-08-05 19:37] LABS: D-Dimer 0.49 ug/mL (0.0-0.5)
[2024-08-05 19:43] LABS: HCG Qualitative, Serum Negative (Negative); Lipase 79 U/L (23-300)
[2024-08-05 19:48] LABS: Ethyl Alcohol < 10 mg/dl (0-10); T4 (Thyroxine) 10.9 ug/dl (5.53-11.0); Troponin I < 0.01 ng/ml (0.00-0.034)
[2024-08-05 20:01] LABS: Thyroid Stimulating Hormone 1.63 uIU/mL (0.465-4.68)
--- NOTE | 2024-08-05 20:16 | PC.NURSE ---
for PT safety PT placd on bed kelsey due to pt refusing intermittent cath.
[2024-08-05 20:20] LABS: Microscopic, Urine URINE MICROSCOPIC (MICROSCOPIC)
[2024-08-05 20:24] LABS: Appearance,Urine CLEAR (Clear); Bilirubin,Urine Negative (Negative); Blood, Urine Negative (Negative); Color,Urine YELLOW (Yellow); Glucose,Urine (UA) Negative (Negative); Ketones,Urine 3+ (Negative); Leukocyte Esterase,Urine Negative (Negative); Nitrate,Urine Negative (Negative); PH,Urine 7.5 (5.0-8.5); Protein,Urine Negative (Negative); Specific Gravity, Urine 1.015 (1.005-1.030)
[2024-08-05 20:35] LABS: Barbiturates Screen,Urine Negative ng/ml (<200)
[2024-08-05 20:36] LABS: Amphetamine/Metha Screen,Urine Negative ng/ml (<1000); Benzodiazepines Screen,Urine Negative ng/ml (<200)
[2024-08-05 20:38] LABS: Cannabinoid Screen,Urine Negative ng/ml (<50)
[2024-08-05 20:39] LABS: Cocaine Screen,Urine Negative ng/ml (<300); Methadone Screen,Urine Negative ng/ml (<300)
[2024-08-05 20:40] LABS: Opiate Screen,Urine Negative ng/ml (<300)
[2024-08-05 20:41] LABS: Phencyclidine Screen,Urine Negative ng/ml (<25)
[2024-08-05 20:46] LABS: Bacteria,Urine 3+ /lpf; Squamous Epithelial Cell,Urine 20-50 #/hpf (0-5)
[2024-08-05 20:47] LABS: Yeast,Urine 1+ /lpf
--- NOTE | 2024-08-05 21:34 | PC.NURSE ---
PT ambulated to restroom per this nurse stand by.
[2024-08-05 23:04] LABS: Reflex Lactic Add Lactic Reflex
[2024-08-05 23:08] LABS: Troponin I < 0.01 ng/ml (0.00-0.034)
--- NOTE | 2024-08-10 15:30 | PC.NURSE ---
Attempted to call patient regarding urine culture results and prescription for antibiotics. No answer, unable to leave message. Will try back later.
== END 2024-08-05 23:37 | disposition home or self-care (01) ==
PROVIDERS: Emergency Provider Emergency Medicine; PCP Nurse Practitioner Family
DX: R55 Syncope and collapse (principal); R00.0 Tachycardia, unspecified; F41.0 Panic disorder [episodic paroxysmal anxiety]; R11.0 Nausea; F17.210 Nicotine dependence, cigarettes, uncomplicated
CPT/HCPCS: 80053; 80307; 80320; 80329; 81001; 82803; 83690; 84436; 84443; 84484; 84703; 85025; 85378; 87086; 87088; 87186; 93005; 96361; 96374; 99284; J2060; J7120